=== PATIENT | female | born 1935 | race Caucasian/White ===

== ENCOUNTER 2017-08-15 15:53 | Inpatient (IN) | payer MEDICARE, OTHER ==
[2017-08-15 16:38] LABS: HEMATOCRIT 36.4 % (36.0-47.0); HGB HCT DIFFERENCE -0.4; MEAN CORPUSCULAR HEMOGLOBIN 29.1 pg (27.0-33.4); MEAN CORPUSCULAR HGB CONC 32.9 g/dL (32.0-36.0); MEAN CORPUSCULAR VOLUME 88 fl (80-97); RED BLOOD COUNT 4.12 10^6/uL (3.72-5.28); RED CELL DISTRIBUTION WIDTH 13.9 % (11.5-14.0); WHITE BLOOD COUNT 27.4 10^3/uL (4.0-10.5)
[2017-08-15 16:46] LABS: PROTHROMBIN TIME 13.5 SEC (11.4-15.4)
[2017-08-15 16:53] LABS: ALANINE AMINOTRANSFERASE 75 U/L (9-52); ALBUMIN 3.5 g/dL (3.5-5.0); ALKALINE PHOSPHATASE 158 U/L (38-126); ANION GAP 17 (5-19); ASPARTATE AMINO TRANSFERASE 118 U/L (14-36); BILIRUBIN,DIRECT 1.8 mg/dL (0.0-0.4); BILIRUBIN,TOTAL 2.4 mg/dL (0.2-1.3); BLOOD UREA NITROGEN 30 mg/dL (7-20); CALCIUM 8.9 mg/dL (8.4-10.2); CARBON DIOXIDE 23 mmol/L (22-30); CHLORIDE 99 mmol/L (98-107); CREATININE RESULT 1.55 mg/dL (0.52-1.25); SODIUM 139.3 mmol/L (137-145); TOTAL PROTEIN 6.3 g/dL (6.3-8.2)
[2017-08-15 17:01] LABS: BAND NEUTROPHILS % (MANUAL) 5 % (3-5); BASOPHILS % (MANUAL) 0 % (0-2); EOSINOPHILS % (MANUAL) 0 % (0-6); LYMPHOCYTES % (MANUAL) 5 % (13-45); TOTAL CELLS COUNTED 100
[2017-08-15 17:03] LABS: GLUCOSE 435 mg/dL (75-110)
[2017-08-15 17:04] LABS: OVALOCYTES SLIGHT; POIKILOCYTOSIS SLIGHT; POLYCHROMASIA SLIGHT
--- NOTE | 2017-08-15 17:20 | ER Document Report ---
ED General - General Chief Complaint: General Weakness Stated Complaint: WEAKNESS Time Seen by Provider: 08/15/17 16:32 Mode of Arrival: Ambulatory Information source: Patient, Relative Notes: This is an 82-year-old female patient presents to emergency department via EMS for possible sepsis. Went to primary care doctor. Was not feeling well. Was sent here for tachycardic with fever. Patient states that she was on antibiotics a week ago for a bladder infection. Started developing diarrhea on Sunday. Has had 5-6 episodes of diarrhea and now having abdominal pain. Cannot seem to keep anything down. Generally feels achy all over. TRAVEL OUTSIDE OF THE [place] IN LAST 30 DAYS: No - HPI Onset: Last week Onset/Duration: Gradual Quality of pain: Achy Severity: Moderate Pain Level: 2 Associated symptoms: Body/muscle aches, Chills, Diarrhea, Nausea - Juvencio pain, Weakness - Related Data Allergies/Adverse Reactions: Penicillins Allergy (Verified 08/15/17 16:34) Home Medications: Current Home Medications Canagliflozin [Invokana] 100 mg PO DAILY 08/15/17 [History] Cholecalciferol (Vitamin D3) [Vitamin D3 2000 unit Tablet] 2,000 unit PO DAILY 08/15/17 [History] Fenofibrate 160 mg PO DAILY 08/15/17 [History] Glipizide [Glocotrol 10 Mg Tablet] 10 mg PO BIDACBS 08/15/17 [History] Lisinopril/Hydrochlorothiazide [Lisinopril-Hctz 10-12.5 mg Tab] 1 tab PO DAILY 08/15/17 [History] Magnesium Oxide [Mag-Ox 400 mg Tablet] 400 mg PO BID 08/15/17 [History] Memantine HCl [Namenda 10 mg Tablet] 5 mg PO DAILY 08/15/17 [History] Metformin HCl [Metformin HCl ER] 500 mg PO QHS 08/15/17 [History] Multivitamin [Tab-A-Adryan (Multiple Vitamin) Tablet] 1 tab PO DAILY 08/15/17 [ History] Omeprazole 20 mg PO DAILY 08/15/17 [History] Simvastatin [Zocor 40 mg Tablet] 40 mg PO QHS 08/15/17 [History] Tolterodine Tartrate [Detrol] 2 mg PO BID 08/15/17 [History] Vit A/Vit C/Vit E/Zinc/Copper [Preservision Areds Softgel] 1 cap PO BID [History] Past Medical History - General Information source: Patient, Relative - Social History Smoking Status: Never Smoker Frequency of alcohol use: None Drug Abuse: None Family History: Reviewed & Not Pertinent Patient has suicidal ideation: No Patient has homicidal ideation: No - Past Medical History Cardiac Medical History: Reports: Hx Hypertension Endocrine Medical History: Reports: Hx Diabetes Mellitus Type 2 Renal/ Medical History: Denies: Hx Peritoneal Dialysis Review of Systems - Review of Systems Constitutional: Chills, Fever, Malaise, Weakness EENT: No symptoms reported Cardiovascular: No symptoms reported Respiratory: No symptoms reported Gastrointestinal: Abdominal pain, Diarrhea, Nausea, Vomiting Genitourinary: No symptoms reported Female Genitourinary: No symptoms reported Musculoskeletal: No symptoms reported Skin: No symptoms reported Hematologic/Lymphatic: No symptoms reported Neurological/Psychological: No symptoms reported Physical Exam - Vital signs Vitals: BP Pulse Ox 104/57 L 92 08/15/17 16:01 08/15/17 16:01 Interpretation: Normal - General General appearance: Appears well, Alert - HEENT Head: Normocephalic - She would drive mucous membrane, Atraumatic Eyes: Normal Pupils: PERRL - Respiratory Respiratory status: No respiratory distress Chest status: Nontender Breath sounds: Normal Chest palpation: Normal - Cardiovascular Rhythm: Tachycardia Heart sounds: Normal auscultation Murmur: No - Abdominal Inspection: Normal Distension: No distension Bowel sounds: Normal Tenderness: Tender - Mild diffuse abdominal tenderness worse in the left lower quadrant. No: Rebound Organomegaly: No organomegaly - Back Back: Normal, Nontender - Extremities General upper extremity: Normal inspection, Nontender, Normal color, Normal ROM , Normal temperature General lower extremity: Normal inspection, Nontender, Normal color, Normal ROM , Normal temperature, Normal weight bearing. No: Cristobal's sign - Neurological Neuro grossly intact: Yes Cognition: Normal Orientation: AAOx4 Hamilton Coma Scale Eye Opening: Spontaneous Hamilton Coma Scale Verbal: Oriented Hamilton Coma Scale Motor: Obeys Commands [place] Coma Scale Total: 15 Speech: Normal Motor strength normal: LUE, RUE, LLE, RLE Sensory: Normal - Psychological Associated symptoms: Normal affect, Normal mood - Skin Skin Temperature: Warm Skin Moisture: Dry Skin Color: Normal Course - Re-evaluation Re-evalutation: 08/15/17 18:41 Septic appearing. Blood cultures, lactate, CT abdomen and pelvis, IV fluids, antibiotics started. Likely C. difficile colitis but could be other pathology. Will treat aggressively at this time. Patient is full code. 08/15/17 18:42 Laboratory 08/15/17 08/15/17 08/15/17 16:15 16:15 16:15 WBC 27.4 H RBC 4.12 Hgb 12.0 Hct 36.4 MCV 88 MCH 29.1 MCHC 32.9 RDW 13.9 Plt Count 281 Total Counted 100 Seg Neutrophils % Not Reportable Seg Neuts % (Manual) 88 H Band Neutrophils % 5 Lymphocytes % Not Reportable Lymphocytes % (Manual) 5 L Monocytes % Not Reportable Monocytes % (Manual) 2 L Eosinophils % Not Reportable Eosinophils % (Manual) 0 Basophils % Not Reportable Basophils % (Manual) 0 Absolute Neutrophils Not Reportable Abs Neuts (Manual) 25.5 H Absolute Lymphocytes Not Reportable Abs Lymphs (Manual) 1.4 Absolute Monocytes Not Reportable Abs Monocytes (Manual) 0.5 Absolute Eosinophils Not Reportable Absolute Eos (Manual) 0.0 Absolute Basophils Not Reportable Abs Basophils (Manual) 0.0 Large Platelets PRESENT Platelet Comment ADEQUATE Polychromasia SLIGHT Poikilocytosis SLIGHT Ovalocytes SLIGHT PT 13.5 INR 0.96 VBG pH VBG pCO2 VBG HCO3 VBG Base Excess Sodium 139.3 Potassium 4.0 Chloride 99 Carbon Dioxide 23 Anion Gap 17 BUN 30 H Creatinine 1.55 H Est GFR ( Amer) 39 L Est GFR (Non-Af Amer) 32 L Glucose 435 H* POC Glucose Lactic Acid Calcium 8.9 Total Bilirubin 2.4 H Direct Bilirubin 1.8 H Indirect Bilirubin Not Reportable Neonat Total Bilirubin Not Reportable AST 118 H ALT 75 H Alkaline Phosphatase 158 H Troponin I Total Protein 6.3 Albumin 3.5 Urine Color Urine Appearance Urine pH Ur Specific [place] Urine Protein Urine Glucose (UA) Urine Ketones Urine Blood Urine Nitrite Urine Bilirubin Urine Urobilinogen Ur Leukocyte Esterase Urine WBC Amorphous Sediment Urine Bacteria WBC Casts Urine Ascorbic Acid 08/15/17 08/15/17 08/15/17 16:15 16:15 16:15 WBC RBC Hgb Hct MCV MCH MCHC RDW Plt Count Total Counted Seg Neutrophils % Seg Neuts % (Manual) Band Neutrophils % Lymphocytes % Lymphocytes % (Manual) Monocytes % Monocytes % (Manual) Eosinophils % Eosinophils % (Manual) Basophils % Basophils % (Manual) Absolute Neutrophils Abs Neuts (Manual) Absolute Lymphocytes Abs Lymphs (Manual) Absolute Monocytes Abs Monocytes (Manual) Absolute Eosinophils Absolute Eos (Manual) Absolute Basophils Abs Basophils (Manual) Large Platelets Platelet Comment Polychromasia Poikilocytosis Ovalocytes PT INR VBG pH Cancelled VBG pCO2 Cancelled VBG HCO3 Cancelled VBG Base Excess Cancelled Sodium Potassium Chloride Carbon Dioxide Anion Gap BUN Creatinine Est GFR ( Amer) Est GFR (Non-Af Amer) Glucose POC Glucose Lactic Acid 2.9 H Calcium Total Bilirubin Direct Bilirubin Indirect Bilirubin Neonat Total Bilirubin AST ALT Alkaline Phosphatase Troponin I 0.019 Total Protein Albumin Urine Color Urine Appearance Urine pH Ur Specific [place] Urine Protein Urine Glucose (UA) Urine Ketones Urine Blood Urine Nitrite Urine Bilirubin Urine Urobilinogen Ur Leukocyte Esterase Urine WBC Amorphous Sediment Urine Bacteria WBC Casts Urine Ascorbic Acid 08/15/17 08/15/17 08/15/17 16:22 16:45 17:16 WBC RBC Hgb Hct MCV MCH MCHC RDW Plt Count Total Counted Seg Neutrophils % Seg Neuts % (Manual) Band Neutrophils % Lymphocytes % Lymphocytes % (Manual) Monocytes % Monocytes % (Manual) Eosinophils % Eosinophils % (Manual) Basophils % Basophils % (Manual) Absolute Neutrophils Abs Neuts (Manual) Absolute Lymphocytes Abs Lymphs (Manual) Absolute Monocytes Abs Monocytes (Manual) Absolute Eosinophils Absolute Eos (Manual) Absolute Basophils Abs Basophils (Manual) Large Platelets Platelet Comment Polychromasia Poikilocytosis Ovalocytes PT INR VBG pH 7.37 VBG pCO2 39.3 VBG HCO3 22.0 VBG Base Excess -3.1 Sodium Potassium Chloride Carbon Dioxide Anion Gap BUN Creatinine Est GFR ( Amer) Est GFR (Non-Af Amer) Glucose POC Glucose 414 H* Lactic Acid Calcium Total Bilirubin Direct Bilirubin Indirect Bilirubin Neonat Total Bilirubin AST ALT Alkaline Phosphatase Troponin I Total Protein Albumin Urine Color YELLOW Urine Appearance SLIGHTLY-CLOUDY Urine pH 6.0 Ur Specific [place] 1.021 Urine Protein 30 H Urine Glucose (UA) 150 H Urine Ketones NEGATIVE Urine Blood NEGATIVE Urine Nitrite NEGATIVE Urine Bilirubin NEGATIVE Urine Urobilinogen 2.0 H Ur Leukocyte Esterase TRACE H Urine WBC 10-20 Amorphous Sediment 1+ Urine Bacteria 4+ WBC Casts 5-10 Urine Ascorbic Acid NEGATIVE Abdomen/Pelvis CT 08/15/17 17:19 IMPRESSION: 1. Cholelithiasis versus a small calcified gallbladder polyp. 2. Atherosclerosis as described. 3. Diverticulosis coli. 4. Osseous changes as described. 08/15/17 19:43 Patient is obviously septic. Starting antibiotics. Adding imipenem. Third and fourth liter of fluid ordered. Starting Levophed. Consulted hospitalist. Will admit to the ICU. Placing central line at this time. 08/15/17 21:11 Consent was obtained. Central line was placed. Levophed started. Moving to ICU at this time. Patient still maintains mental status. Blood pressure 88/ 60. Heart rate 90. Transfer to the ICU at this time. Hospitalist is seen. Will do bedside ultrasound for the right upper quadrant evaluation gallbladder as potential septic source as well. Expanding antibiotics as well. - Vital Signs Vital signs: Temp Pulse Resp BP Pulse Ox 100.1 F 99 20 72/45 L 95 08/15/17 18:50 08/15/17 17:56 08/15/17 19:16 08/15/17 19:16 08/15/17 19:16 - Laboratory Result Diagrams: 08/15/17 16:15 08/15/17 16:15 Laboratory results interpreted by me: 08/15/17 08/15/17 08/15/17 16:15 16:15 16:15 WBC 27.4 H Seg Neuts % (Manual) 88 H Lymphocytes % (Manual) 5 L Monocytes % (Manual) 2 L Abs Neuts (Manual) 25.5 H BUN 30 H Creatinine 1.55 H Est GFR ( Amer) 39 L Est GFR (Non-Af Amer) 32 L Glucose 435 H* POC Glucose Lactic Acid 2.9 H Magnesium Total Bilirubin 2.4 H Direct Bilirubin 1.8 H AST 118 H ALT 75 H Alkaline Phosphatase 158 H Urine Protein Urine Glucose (UA) Urine Urobilinogen Ur Leukocyte Esterase 08/15/17 08/15/17 08/15/17 16:15 16:22 16:45 WBC Seg Neuts % (Manual) Lymphocytes % (Manual) Monocytes % (Manual) Abs Neuts (Manual) BUN Creatinine Est GFR ( Amer) Est GFR (Non-Af Amer) Glucose POC Glucose 414 H* Lactic Acid Magnesium 1.4 L Total Bilirubin Direct Bilirubin AST ALT Alkaline Phosphatase Urine Protein 30 H Urine Glucose (UA) 150 H Urine Urobilinogen 2.0 H Ur Leukocyte Esterase TRACE H 08/15/17 18:37 WBC Seg Neuts % (Manual) Lymphocytes % (Manual) Monocytes % (Manual) Abs Neuts (Manual) BUN Creatinine Est GFR ( Amer) Est GFR (Non-Af Amer) Glucose POC Glucose 366 H Lactic Acid Magnesium Total Bilirubin Direct Bilirubin AST ALT Alkaline Phosphatase Urine Protein Urine Glucose (UA) Urine Urobilinogen Ur Leukocyte Esterase Procedures - Central Line Right Internal jugular Consent obtained: Yes Central line pre-insertion: Sterile PPE donned, Chloraprep applied, Sterile drapes applied Central line lumen type: Triple Anesthetic type: 1% Lidocaine mL's of anesthesia: 3 Ultrasound guided: Yes Line secured with sutures: Yes Central line post-insertion: Blood return from lumens, Biopatch applied, Sterile dressing applied, Position confirmed w/ CXR Number of attempts: 1 Complications: No Critical Care Note - Critical Care Note Total time excluding time spent on procedures (mins): 60 Comments: Critical care provided due to sepsis with hypotension, tachycardia, dehydration Discharge - Discharge Clinical Impression: Sepsis Qualifiers: Sepsis type: sepsis due to unspecified organism Qualified Code(s): A41.9 - Sepsis, unspecified organism Leukocytosis, unspecified Qualifiers: Leukocytosis type: bandemia Qualified Code(s): D72.825 - Bandemia Condition: Poor Disposition: ADMITTED INPATIENT Admitting Provider: Yazmin [facility] Unit Admitted: ICU
[2017-08-15 17:28] LABS: APPEARANCE,URINE SLIGHTLY-CLOUDY; BILIRUBIN,URINE NEGATIVE (NEGATIVE); GLUCOSE, URINE 150 mg/dL (NEGATIVE); KETONES,URINE NEGATIVE (NEGATIVE); URINE SPECIFIC GRAVITY 1.021
[2017-08-15 17:29] LABS: LEUKOCYTE ESTERASE,URINE TRACE (NEGATIVE); NITRITE,URINE NEGATIVE (NEGATIVE); PROTEIN,URINE 30 mg/dL (NEGATIVE)
[2017-08-15 17:29] LABS: VENOUS BLOOD BASE EXCESS -3.1 mmol/L; VENOUS BLOOD PCO2 39.3 mmHg (35-63); VENOUS BLOOD PH 7.37 (7.30-7.42)
[2017-08-15 17:30] LABS: BACTERIA,URINE 4+ /HPF
[2017-08-15] MEDS: NORMAL SALINE 1000 ML 1,000 ML IV PRN ×3 (17:46→23:07)
[2017-08-15] MEDS ORDERED: VANCOMYCIN HCL INJ 1000 MG VIAL IV ONE (17:49)
[2017-08-15] MEDS ORDERED: METRONIDAZOLE 500 MG/NS RTU 100 ML IV ONE (17:50)
[2017-08-15] MEDS ORDERED: ACETAMINOPHEN 325 MG TABLET PO ONE (18:04)
--- NOTE | 2017-08-15 18:14 | RADIOLOGY REPORT (SQ) ---
EXAM DESCRIPTION: CT ABD/PELVIS NO ORAL OR IV COMPLETED DATE/TIME: 08/15/2017 5:42 pm REASON FOR STUDY: fever, diarrhea, abdomen pain COMPARISON: None. TECHNIQUE: CT scan of the abdomen and pelvis performed without intravenous or oral contrast. Images reviewed with lung, soft tissue, and bone windows. Reconstructed coronal and sagittal MPR images revi ewed. All images stored on PACS. All CT scanners at this facility use dose modulation, iterative reconstruction, and/or weight based d osing when appropriate to reduce radiation dose to as low as reasonably achievable (ALARA). [facility]: Dose Right [facility]: CareDose [facility]: Dose Right [facility]: Teradose 4D [facility]: ConsiderC RADIATION DOSE: 12.8mGy. LIMITATIONS: None. FINDINGS: LOWER CHEST: No significant findings. No nodules or infiltrates. NON-CONTRASTED LIVER, SPLEEN, ADRENALS: Evaluation limited by lack of IV contrast. No identified sign ificant masses. PANCREAS: No masses. No peripancreatic inflammatory changes. GALLBLADDER: A small calcification is seen in the gallbladder on image 40 series 3, image 29 series 6 01. RIGHT KIDNEY AND URETER: No suspicious masses. Assessment limited by lack of IV contrast. No signif icant calcifications. No hydronephrosis or hydroureter. LEFT KIDNEY AND URETER: No suspicious masses. Assessment limited by lack of IV contrast. No signifi cant calcifications. No hydronephrosis or hydroureter. AORTA AND RETROPERITONEUM: No aneurysm. Atherosclerosis. Plaques are present at the origins of the celiac, SMA, and renal arteries. BOWEL AND PERITONEAL CAVITY: Diverticula arise from the descending and sigmoid colons with no acute i nflammatory changes. APPENDIX: Normal. PELVIS, BLADDER, AND ABDOMINAL WALL:No abnormal masses. No free fluid. Bladder normal. BONES: Mild compression changes. Degenerative disc changes. OTHER: No other significant finding. IMPRESSION: 1. Cholelithiasis versus a small calcified gallbladder polyp. 2. Atherosclerosis as described. 3. Diverticulosis coli. 4. Osseous changes as described. COMMENT: Quality ID # [id number]: Final reports with documentation of one or more dose reduction techniques (e.g., Automated exposure control, adjustment of the mA and/or kV according to patient size, use of iterative reconstruction technique) TECHNICAL DOCUMENTATION: JOB ID: [id number]- All Rights Reserved
[2017-08-15] MEDS ORDERED: NORMAL SALINE 1000 ML 1,000 ML IV ONE (19:05)
[2017-08-15] MEDS ORDERED: IMIPENEM/CILASTATIN SODIUM INJ 500 MG VIAL IV ONE (19:37)
[2017-08-15] MEDS ORDERED: DEXTROSE 5%-WATER 250 ML with NOREPINEPHRINE BITARTRATE 4 MG IV PRN ×2 (19:38)
[2017-08-15] MEDS ORDERED: NORMAL SALINE 1000 ML 2,000 ML IV ONE (19:38)
[2017-08-15] MEDS ORDERED: ONDANSETRON HCL INJ/PF 4 MG/2 ML SDV IV PRN (19:46)
[2017-08-15] MEDS ORDERED: LEVALBUTEROL HCL NEB 1.25 MG/3 ML AMPUL NEB PRN (19:46)
[2017-08-15] MEDS ORDERED: ACETAMINOPHEN 325 MG TABLET PO PRN (19:46)
[2017-08-15] MEDS ORDERED: DEXTROSE 40% GEL 15 GM TUBE PO PRN ×2 (19:52)
[2017-08-15] MEDS ORDERED: DEXTROSE 50%-WATER 25 GM/50 ML DISP.SYRIN IV PRN (19:52)
[2017-08-15] MEDS ORDERED: GLUCAGON,HUMAN RECOMB 1 MG INJ IM PRN (19:52)
[2017-08-15] MEDS ORDERED: INSULIN LISPRO 100 UNIT/ML 3 ML VIAL SUBCUT PRN (19:52)
[2017-08-15] MEDS ORDERED: NOREPINEPHRINE BITARTRATE INJ/PF 4 MG/4 ML SDV IV ONE (20:13)
[2017-08-15] MEDS ORDERED: HEPARIN SOD (PORCINE) 1 UNIT/ML PF 3 ML SYRINGE IV ONE (21:02)
--- NOTE | 2017-08-15 22:14 | RADIOLOGY REPORT (SQ) ---
EXAM DESCRIPTION: CHEST SINGLE VIEW COMPLETED DATE/TIME: 08/15/2017 9:36 pm REASON FOR STUDY: Central line placed COMPARISON: None. NUMBER OF VIEWS: One view. TECHNIQUE: Single frontal radiographic view of the chest acquired. LIMITATIONS: None. FINDINGS: Central venous access catheter placed via right IJ approach. Catheter tip at right atriu m. No pneumothorax. Minimal linear atelectasis in the left lung base. IMPRESSION: Central venous access catheter placed via right IJ approach. Catheter tip at right atri um. No pneumothorax. TECHNICAL DOCUMENTATION: JOB ID: [id number] [employer]- All Rights Reserved
[2017-08-15] MEDS ORDERED: NORMAL SALINE INJ/PF 0.9% 10 ML SDV IV PRN (22:53)
[2017-08-15] MEDS ORDERED: NORMAL SALINE 100 ML with INSULIN REGULAR, HUMAN 100 UNIT IV PRN ×2 (22:59)
[2017-08-15] MEDS: HEPARIN SOD (PORCINE) 5,000 UNIT/ML 1 ML SYRINGE SUBCUT SCH (23:02)
[2017-08-15] MEDS: IMIPENEM/CILASTATIN SODIUM 500 MG in NORMAL SALINE 100 ML IV SCH (23:05)
[2017-08-15] MEDS: FAMOTIDINE INJ/PF 20 MG/2 ML SDV IV SCH (23:06)
[2017-08-15] MEDS: MAGNESIUM SULFATE/D5W 1 GM/100 ML RTUPB IV SCH (23:06)
[2017-08-15 23:07] LABS: PARTIAL THROMBOPLASTIN TIME 31.9 SEC (23.5-35.8); PROTHROMBIN TIME 14.6 SEC (11.4-15.4)
[2017-08-15] MEDS ORDERED: INSULIN REG, HUMAN 100 UNIT/ML 3 ML VIAL (PYX) ONE (23:12)
--- NOTE | 2017-08-15 23:14 | PDOC H&P ---
History of Present Illness Admission Date/PCP: 08/15/17 19:46 DULCE NUNEZ PA-C History of Present Illness: ROHIT BERGMAN is a 82 year old female with a past medical history of dementia, diabetes mellitus, hypertension, GERD, IBS, heart murmur who presents to the emergency department with low blood pressure. Patient was diagnosed with an UTI on 08/08/2017 and was prescribed an antibiotic which she finished. On Sunday because she began not feeling well and complained of being achy and tired. Starting on Sunday patient began vomiting and on Sunday was noted by her family to have diarrhea a minimum of 5 times. Patient denies any hematochezia but does describe some melena with this. Patient went for an MRI this morning in [place] with a neurologist for her dementia. Subsequently patient was not feeling well and her daughter took her to her PCP at which time , patient was unable to urinate and was found to be extremely hypotensive. In the emergency department patient continued to have hypotension despite 3 L of IV fluids. Patient is found to still have a UTI with concerns for C. difficile colitis in light of her diarrhea. It is to be noted that history is primarily obtained from her daughter who is at bedside. Patient has had no further stooling here in the hospital. She is referred to the hospitalist service for septic shock. Past Medical History Cardiac Medical History: Reports: Hypertension, Heart Murmur EENT Medical History: Reports: Cataracts Neurological Medical History: Reports: Other - Dementia Endocrine Medical History: Reports: Diabetes Mellitus Type 2 Renal/ Medical History: Denies: Chronic Kidney Disease GI Medical History: Reports: Gastroesophageal Reflux Disease, Other - IBS Past Surgical History Past Surgical History: Reports: Hysterectomy Social History Smoking Status: Never Smoker Frequency of Alcohol Use: None Hx Recreational Drug Use: No Hx Prescription Drug Abuse: No - Advance Directive Resuscitation Status: Full Code Surrogate healthcare decision maker:: Savana Katz Family History Family History: Malignancy Parental Family History Reviewed: Yes Children Family History Reviewed: Yes Sibling(s) Family History Reviewed.: Yes Medication/Allergy Home Medications: Canagliflozin [Invokana] 100 mg PO DAILY 08/15/17 Cholecalciferol (Vitamin D3) [Vitamin D3 2000 unit Tablet] 2,000 unit PO DAILY 08/15/17 Fenofibrate 160 mg PO DAILY 08/15/17 Glipizide [Glocotrol 10 Mg Tablet] 10 mg PO BIDACBS 08/15/17 Lisinopril/Hydrochlorothiazide [Lisinopril-Hctz 10-12.5 mg Tab] 1 tab PO DAILY 08/15/17 Magnesium Oxide [Mag-Ox 400 mg Tablet] 400 mg PO BID 08/15/17 Memantine HCl [Namenda 10 mg Tablet] 5 mg PO DAILY 08/15/17 Metformin HCl [Metformin HCl ER] 500 mg PO QHS 08/15/17 Multivitamin [Tab-A-Adryan (Multiple Vitamin) Tablet] 1 tab PO DAILY 08/15/17 Omeprazole 20 mg PO DAILY 08/15/17 Simvastatin [Zocor 40 mg Tablet] 40 mg PO QHS 08/15/17 Tolterodine Tartrate [Detrol] 2 mg PO BID 08/15/17 Vit A/Vit C/Vit E/Zinc/Copper [Preservision Areds Softgel] 1 cap PO BID Allergies/Adverse Reactions: Penicillins Allergy (Verified 08/15/17 16:34) Review of Systems Constitutional: PRESENT: anorexia, chills, fatigue, fever(s), weakness. ABSENT : headache(s), weight gain, weight loss Eyes: ABSENT: visual disturbances Ears: ABSENT: hearing changes Nose, Mouth, and Throat: ABSENT: other Cardiovascular: ABSENT: chest pain, dyspnea on exertion, edema, orthropnea, palpitations Respiratory: ABSENT: cough, dyspnea, hemoptysis, sputum Gastrointestinal: PRESENT: abdominal pain, diarrhea, melena, nausea, vomiting. ABSENT: constipation, hematemesis, hematochezia Genitourinary: PRESENT: difficulty urinating. ABSENT: dysuria, hematuria, nocturia Musculoskeletal: ABSENT: joint swelling Integumentary: ABSENT: rash, wounds Neurological: ABSENT: abnormal gait, abnormal speech, confusion, dizziness, focal weakness, syncope Psychiatric: ABSENT: anxiety, depression, homidical ideation, suicidal ideation Endocrine: ABSENT: cold intolerance, heat intolerance, polydipsia, polyuria Hematologic/Lymphatic: ABSENT: easy bleeding, easy bruising Physical Exam Vital Signs: Temp Pulse Resp BP Pulse Ox 100.1 F 99 20 122/55 L 96 08/15/17 18:50 08/15/17 17:56 08/15/17 22:01 08/15/17 22:01 08/15/17 22:01 General appearance: PRESENT: well-developed, well-nourished, other - Acutely ill -appearing, sallow Head exam: PRESENT: atraumatic, normocephalic Eye exam: PRESENT: conjunctiva pink, EOMI, PERRLA, scleral icterus - Mild Ear exam: PRESENT: normal external ear exam Mouth exam: PRESENT: dry mucosa, tongue midline Neck exam: ABSENT: JVD, lymphadenopathy, thyromegaly, tracheal deviation Respiratory exam: PRESENT: clear to auscultation thiago, symmetrical, unlabored. ABSENT: crackles, prolonged expiratory phas, rales, rhonchi, tachypnea, wheezes Cardiovascular exam: PRESENT: RRR, +S1, +S2, systolic murmur - 3/6 SM, RUSB. ABSENT: diastolic murmur, rubs Pulses: PRESENT: +1 pedal pulses bilateral Vascular exam: PRESENT: pallor GI/Abdominal exam: PRESENT: diminished bowel sounds, distended, soft, tenderness - Diffusely tender to palpation. ABSENT: firm, guarding, mass, Mendoza's sign, organolmegaly, rebound, rigid Rectal exam: PRESENT: deferred Extremities exam: PRESENT: full ROM. ABSENT: clubbing, pedal edema, tenderness Neurological exam: PRESENT: alert, awake, oriented to person, oriented to place , oriented to situation, CN II-XII grossly intact. ABSENT: oriented to time, motor sensory deficit Psychiatric exam: PRESENT: appropriate affect, normal mood. ABSENT: homicidal ideation, suicidal ideation Skin exam: PRESENT: dry, intact, warm. ABSENT: cyanosis, rash Results Laboratory Results: 08/15/17 08/15/17 08/15/17 16:15 16:15 16:15 WBC 27.4 H Hgb 12.0 Hct 36.4 Plt Count 281 Seg Neuts % (Manual) 88 H INR 0.96 VBG pH Sodium 139.3 Potassium 4.0 Chloride 99 Carbon Dioxide 23 Anion Gap 17 BUN 30 H Creatinine 1.55 H Glucose 435 H* POC Glucose Lactic Acid Calcium 8.9 Magnesium Total Bilirubin 2.4 H Direct Bilirubin 1.8 H AST 118 H ALT 75 H Alkaline Phosphatase 158 H Troponin I Total Protein 6.3 Albumin 3.5 Ur Specific [place] Urine Protein Urine Glucose (UA) Ur Leukocyte Esterase Urine WBC Amorphous Sediment Urine Bacteria WBC Casts 1108/15/17 08/15/17 16:15 16:15 16:15 WBC Hgb Hct Plt Count Seg Neuts % (Manual) INR VBG pH Sodium Potassium Chloride Carbon Dioxide Anion Gap BUN Creatinine Glucose POC Glucose Lactic Acid 2.9 H Calcium Magnesium 1.4 L Total Bilirubin Direct Bilirubin AST ALT Alkaline Phosphatase Troponin I 0.019 Total Protein Albumin Ur Specific [place] Urine Protein Urine Glucose (UA) Ur Leukocyte Esterase Urine WBC Amorphous Sediment Urine Bacteria WBC Casts 08/15/17 08/15/17 08/15/17 16:22 16:45 17:16 WBC Hgb Hct Plt Count Seg Neuts % (Manual) INR VBG pH 7.37 Sodium Potassium Chloride Carbon Dioxide Anion Gap BUN Creatinine Glucose POC Glucose 414 H* Lactic Acid Calcium Magnesium Total Bilirubin Direct Bilirubin AST ALT Alkaline Phosphatase Troponin I Total Protein Albumin Ur Specific [place] 1.021 Urine Protein 30 H Urine Glucose (UA) 150 H Ur Leukocyte Esterase TRACE H Urine WBC 10-20 Amorphous Sediment 1+ Urine Bacteria 4+ WBC Casts 5-10 08/15/17 18:37 WBC Hgb Hct Plt Count Seg Neuts % (Manual) INR VBG pH Sodium Potassium Chloride Carbon Dioxide Anion Gap BUN Creatinine Glucose POC Glucose 366 H Lactic Acid Calcium Magnesium Total Bilirubin Direct Bilirubin AST ALT Alkaline Phosphatase Troponin I Total Protein Albumin Ur Specific [place] Urine Protein Urine Glucose (UA) Ur Leukocyte Esterase Urine WBC Amorphous Sediment Urine Bacteria WBC Casts Impressions: Abdomen/Pelvis CT 08/15/17 17:19 IMPRESSION: 1. Cholelithiasis versus a small calcified gallbladder polyp. 2. Atherosclerosis as described. 3. Diverticulosis coli. 4. Osseous changes as described. Chest X-Ray 08/15/17 21:10 IMPRESSION: Central venous access catheter placed via right IJ approach. Catheter tip at right atrium. No pneumothorax. Status: Imported from PACS Assessment & Plan - Diagnosis (1) Septic shock Is this a current diagnosis for this admission?: Yes Plan: Central line has been placed. Repeat lactic acid. Give patient a total of 5 L normal saline bolus and initiate Levophed to maintain a map greater than 65. Systolic goal greater than 90. CVP every 4 hours. Patient will be placed in the ICU and monitored on telemetry. This is likely secondary to possible remaining UTI, acute infectious diarrhea, and also possibly secondary to gallbladder or colonic pathology. Patient will be covered empirically with Flagyl and imipenem. Patient has already received a dose of vancomycin in the emergency department which in light of her kidney dysfunction should remain therapeutic if her cultures come back positive for gram-positive organisms. (2) UTI (urinary tract infection) Qualifiers: Urinary tract infection type: acute cystitis Hematuria presence: without hematuria Qualified Code(s): N30.00 - Acute cystitis without hematuria Is this a current diagnosis for this admission?: Yes Plan: Place patient on imipenem pending her urine culture. (3) Acute renal failure Qualifiers: Acute renal failure type: with acute tubular necrosis Qualified Code(s): N17.0 - Acute kidney failure with tubular necrosis Is this a current diagnosis for this admission?: Yes Plan: Unknown at this time the patient suffers from a baseline kidney disease. My suspicion is in light of patient's profound dehydration that this represents an acute kidney injury with ATN likely secondary to her septic shock. We will aggressively rehydrate patient and follow this closely. Place [place] for accurate I's and O's. (4) Diabetes mellitus type 2 in obese Is this a current diagnosis for this admission?: Yes Plan: Patient normally takes Tradjenta, glipizide, metformin, Invokana for her diabetes mellitus. Will hold all of these in light of her acute kidney injury and place her on an insulin drip at this time as patient's blood sugars are in excess of 300. Blood sugar between 70 and 180. (5) Acute infectious diarrhea Is this a current diagnosis for this admission?: Yes Plan: Concern for C. difficile colitis. Obtain occult blood, fecal leukocytes, stool culture, and C. difficile PCR. Place patient empirically on IV Flagyl and oral Vancocin given her septic shock (6) Abnormal abdominal CT scan Is this a current diagnosis for this admission?: Yes Plan: We will obtain ultrasound of the gallbladder due to concerns for gallbladder polyp (7) Dementia Qualifiers: Dementia type: unspecified type Dementia behavioral disturbance: without behavioral disturbance Qualified Code(s): F03.90 - Unspecified dementia without behavioral disturbance Is this a current diagnosis for this admission?: Yes Plan: Supportive care (8) Hyperlipidemia Qualifiers: Hyperlipidemia type: unspecified Qualified Code(s): E78.5 - Hyperlipidemia , unspecified Is this a current diagnosis for this admission?: Yes Plan: Hold statin and fenofibrate at this time (9) Hypomagnesemia Is this a current diagnosis for this admission?: Yes Plan: Replete and recheck (10) GERD (gastroesophageal reflux disease) Qualifiers: Esophagitis presence: esophagitis presence not specified Qualified Code(s) : K21.9 - Gastro-esophageal reflux disease without esophagitis Is this a current diagnosis for this admission?: Yes Plan: Continue her Prilosec - Time Time Spent: Greater than 70 Minutes Critical Time spent with patient: 35 or more minutes Medications reviewed and adjusted accordingly: Yes - Inpatient Certification Based on my medical assessment, after consideration of the patient's comorbidities, presenting symptoms, or acuity I expect that the services needed warrant INPATIENT care.: Yes I certify that my determination is in accordance with my understanding of Medicare's requirements for reasonable and necessary INPATIENT services [42 CFR 412.3e].: Yes Medical Necessity: Need For IV Fluids, Need For Continuous Telemetry Monitoring , Need for IV Antibiotics, Risk of Complication if Not Cared For in Hospital, Risk of Diagnosis Which Will Require Inpatient Eval/Care/Monitoring Post Hospital Care: D/C House Detective Documentation
[2017-08-16] MEDS ORDERED: IMIPENEM/CILASTATIN SODIUM 1,000 MG in NORMAL SALINE 250 ML IV SCH ×2
[2017-08-16] MEDS: MAGNESIUM SULFATE/D5W 1 GM/100 ML RTUPB IV SCH (00:21)
[2017-08-16] MEDS ORDERED: VANCOMYCIN HCL INJ 500 MG VIAL ONE (00:21)
[2017-08-16] MEDS: METRONIDAZOLE 500 MG/NS RTU 100 ML IV SCH ×4 (00:51→17:27)
[2017-08-16] MEDS: VANCOMYCIN HCL INJ 500 MG VIAL PO SCH ×4 (00:52→17:27)
--- NOTE | 2017-08-16 01:14 | RADIOLOGY REPORT (SQ) ---
EXAM DESCRIPTION: U/S ABDOMEN LIMITED W/O DOP COMPLETED DATE/TIME: 08/16/2017 1:04 am REASON FOR STUDY: Right upper quadrant pain, fever COMPARISON: None. TECHNIQUE: Dynamic and static grayscale images acquired of the abdomen and recorded on PACS. Additio nal selected color Doppler and spectral images recorded. LIMITATIONS: None. FINDINGS: PANCREAS: Poorly visualized LIVER: No masses. Echotexture normal. LIVER VASCULATURE: Normal directional flow of the main portal vein and hepatic veins. GALLBLADDER: Gallstones. Polyps. Pericholecystic fluid. Thickened gallbladder wall. ULTRASOUND-DETECTED TOLBERT'S SIGN: Negative. INTRAHEPATIC DUCTS AND COMMON DUCT: CBD and intrahepatic ducts normal caliber. No filling defects. INFERIOR VENA CAVA: Normal flow. AORTA: Poorly visualized RIGHT KIDNEY: Normal size. Normal echogenicity. No solid or suspicious masses. No hydronephrosis. No calcifications. PERITONEAL AND RIGHT PLEURAL SPACE: No ascites or effusions. OTHER: No other significant findings. IMPRESSION: Cholelithiasis. Gallbladder polyps. Cholecystitis. TECHNICAL DOCUMENTATION: JOB ID: [id number]- All Rights Reserved
[2017-08-16] MEDS: IMIPENEM/CILASTATIN SODIUM 500 MG in NORMAL SALINE 100 ML IV SCH ×4 (02:39→21:39)
[2017-08-16 05:18] LABS: ABSOLUTE BASOPHILS # (AUTO) 0.1 10^3/uL (0.0-0.2); ABSOLUTE EOSINOPHILS # (AUTO) 0.1 10^3/uL (0.0-0.6); ABSOLUTE LYMPHOCYTES (AUTO) 1.6 10^3/uL (0.5-4.7); ABSOLUTE MONOCYTES (AUTO) 0.8 10^3/uL (0.1-1.4); ABSOLUTE NEUT (AUTO) 10.6 10^3/uL (1.7-8.2); BASOPHILS % (AUTO) 0.4 % (0-2); EOSINOPHILS % (AUTO) 0.8 % (0-6); HEMATOCRIT 28.6 % (36.0-47.0); HGB HCT DIFFERENCE -0.1; LYMPHOCYTES % (AUTO) 11.8 % (13-45); MEAN CORPUSCULAR HGB CONC 33.1 g/dL (32.0-36.0); MEAN CORPUSCULAR VOLUME 88 fl (80-97); RED BLOOD COUNT 3.26 10^6/uL (3.72-5.28); RED CELL DISTRIBUTION WIDTH 13.6 % (11.5-14.0); WHITE BLOOD COUNT 13.1 10^3/uL (4.0-10.5)
[2017-08-16 05:19] LABS: HEMOGLOBIN 9.5 g/dL (12.0-15.5)
[2017-08-16 05:25] LABS: ANION GAP 11 (5-19); BLOOD UREA NITROGEN 24 mg/dL (7-20); CALCIUM 7.1 mg/dL (8.4-10.2); CARBON DIOXIDE 21 mmol/L (22-30); CHLORIDE 112 mmol/L (98-107); CREATININE RESULT 1.32 mg/dL (0.52-1.25); GLUCOSE 119 mg/dL (75-110); MAGNESIUM 2.2 mg/dL (1.6-2.3); POTASSIUM 3.6 mmol/L (3.6-5.0); SODIUM 144.1 mmol/L (137-145)
[2017-08-16] MEDS: HEPARIN SOD (PORCINE) 5,000 UNIT/ML 1 ML SYRINGE SUBCUT SCH ×3 (05:40→21:39)
[2017-08-16] MEDS ORDERED: SODIUM CHLORIDE IRRIG SOLUTION 1,000 ML IR PRN (06:21)
[2017-08-16] MEDS: NORMAL SALINE 1000 ML 1,000 ML IV PRN (09:03)
[2017-08-16] MEDS: MAGNESIUM OXIDE 400 MG TABLET PO SCH ×2 (09:04→17:27)
[2017-08-16] MEDS: FAMOTIDINE INJ/PF 20 MG/2 ML SDV IV SCH ×2 (09:04→21:39)
[2017-08-16] MEDS ORDERED: LEVALBUTEROL HCL NEB 1.25 MG/3 ML AMPUL NEB PRN (09:30)
[2017-08-16] MEDS: INSULIN GLARGINE,HUM.REC.ANLOG 300 UNIT/3 ML INSULN.PEN SUBCUT SCH (10:40)
[2017-08-16 12:30] LABS: LIPASE 4614.8 U/L (23-300)
--- NOTE | 2017-08-16 13:09 | PDOC CONSULTATION ---
History of Present Illness Admission Date/PCP: 08/15/17 19:46 DULCE NUNEZ PA-C Patient complains of: Generalized malaise History of Present Illness: 82-year-old female presenting with generalized malaise for the past several days along with intermittent nausea vomiting and some diarrhea that has since resolved. Patient has had diffuse abdominal pain as well which has improved from admission. She was noted with a urinary tract infection was treated with antibiotics as an outpatient but had failure to thrive with generalized weakness and malaise and was noted with hypotension and was subsequently admitted. After fluid resuscitation she has had marked improvement. She still has some abdominal pain. Diarrhea has resolved. No emesis. No history of liver disease in the past. No history of alcohol abuse. Past Medical History Cardiac Medical History: Reports: Hypertension, Heart Murmur EENT Medical History: Reports: Cataracts Neurological Medical History: Reports: Other - Dementia Endocrine Medical History: Reports: Diabetes Mellitus Type 2 Renal/ Medical History: Denies: Chronic Kidney Disease GI Medical History: Reports: Gastroesophageal Reflux Disease, Other - IBS Past Surgical History Past Surgical History: Reports: Hysterectomy Social History Smoking Status: Never Smoker Frequency of Alcohol Use: None Hx Recreational Drug Use: No Hx Prescription Drug Abuse: No - Advance Directive Resuscitation Status: Full Code Family History Family History: Malignancy Parental Family History Reviewed: No Children Family History Reviewed: No Sibling(s) Family History Reviewed.: No Medication/Allergy Home Medications: Canagliflozin [Invokana] 100 mg PO DAILY 08/15/17 Cholecalciferol (Vitamin D3) [Vitamin D3 2000 unit Tablet] 2,000 unit PO DAILY 08/15/17 Fenofibrate 160 mg PO DAILY 08/15/17 Glipizide [Glocotrol 10 Mg Tablet] 10 mg PO BIDACBS 08/15/17 Lisinopril/Hydrochlorothiazide [Lisinopril-Hctz 10-12.5 mg Tab] 1 tab PO DAILY 08/15/17 Magnesium Oxide [Mag-Ox 400 mg Tablet] 400 mg PO BID 08/15/17 Memantine HCl [Namenda 10 mg Tablet] 5 mg PO DAILY 08/15/17 Metformin HCl [Metformin HCl ER] 500 mg PO QHS 08/15/17 Multivitamin [Tab-A-Adryan (Multiple Vitamin) Tablet] 1 tab PO DAILY 08/15/17 Omeprazole 20 mg PO DAILY 08/15/17 Simvastatin [Zocor 40 mg Tablet] 40 mg PO QHS 08/15/17 Tolterodine Tartrate [Detrol] 2 mg PO BID 08/15/17 Vit A/Vit C/Vit E/Zinc/Copper [Preservision Areds Softgel] 1 cap PO BID Allergies/Adverse Reactions: Penicillins Allergy (Verified 08/15/17 16:34) Physical Exam Vital Signs: Temp Pulse Resp BP Pulse Ox 97.9 F 80 21 H 108/63 93 08/16/17 09:29 08/16/17 09:29 08/16/17 10:00 08/16/17 09:49 08/16/17 10:00 Intake & Output 08/15/17 08/16/17 08/17/17 06:59 06:59 06:59 Intake Total 1540 250 Output Total 1100 350 Balance 440 -100 Weight 84 kg General appearance: PRESENT: no acute distress, cooperative Neck exam: PRESENT: other - Supple and nontender Respiratory exam: PRESENT: clear to auscultation thiago Cardiovascular exam: PRESENT: RRR GI/Abdominal exam: PRESENT: other - Soft, mild distention, tender across her abdomen without peritoneal signs. Extremities exam: PRESENT: other - No swelling Neurological exam: PRESENT: alert, awake Psychiatric exam: PRESENT: appropriate affect Skin exam: PRESENT: warm Results Laboratory Results: 08/16/17 04:40 08/16/17 04:40 08/15/17 08/16/17 08/16/17 22:50 04:40 04:40 WBC 13.1 H RBC 3.26 L Hgb 9.5 L D Hct 28.6 L MCV 88 MCH 29.0 MCHC 33.1 RDW 13.6 Plt Count 197 Seg Neutrophils % 81.0 H Lymphocytes % 11.8 L Monocytes % 6.0 Eosinophils % 0.8 Basophils % 0.4 Absolute Neutrophils 10.6 H Absolute Lymphocytes 1.6 Absolute Monocytes 0.8 Absolute Eosinophils 0.1 Absolute Basophils 0.1 Sodium 144.1 Potassium 3.6 Chloride 112 H Carbon Dioxide 21 L Anion Gap 11 BUN 24 H Creatinine 1.32 H Est GFR ( Amer) 47 L Est GFR (Non-Af Amer) 39 L Glucose 119 H Lactic Acid 0.7 Calcium 7.1 L Magnesium 2.2 Albumin Amylase Lipase Blood Type Antibody Screen 08/16/17 08/16/17 08/16/17 04:40 06:28 11:40 WBC RBC Hgb Hct MCV MCH MCHC RDW Plt Count Seg Neutrophils % Lymphocytes % Monocytes % Eosinophils % Basophils % Absolute Neutrophils Absolute Lymphocytes Absolute Monocytes Absolute Eosinophils Absolute Basophils Sodium Potassium Chloride Carbon Dioxide Anion Gap BUN Creatinine Est GFR ( Amer) Est GFR (Non-Af Amer) Glucose Lactic Acid Calcium Magnesium Albumin 2.4 L Amylase 605 H Lipase 4614.8 H Blood Type A POSITIVE Antibody Screen NEGATIVE Impressions: Abdomen/Pelvis CT 08/15/17 17:19 IMPRESSION: 1. Cholelithiasis versus a small calcified gallbladder polyp. 2. Atherosclerosis as described. 3. Diverticulosis coli. 4. Osseous changes as described. Chest X-Ray 08/15/17 21:10 IMPRESSION: Central venous access catheter placed via right IJ approach. Catheter tip at right atrium. No pneumothorax. Abdomen Ultrasound 08/16/17 00:00 IMPRESSION: Cholelithiasis. Gallbladder polyps. Cholecystitis. Assessment & Plan - Diagnosis (1) Gallstone pancreatitis Is this a current diagnosis for this admission?: Yes Plan: Reviewed the CT scan and the ultrasound with the radiologist and she does have evidence of common bile duct dilation on the CT. The common bile duct that was "visualized" on the ultrasound may not be the common bile duct. CT scan also demonstrates some inflammatory changes at the head of the pancreas without a pancreatic head mass. With her gallstones and marked elevation of her lipase diagnosis of gallstone pancreatitis appear certain. Recommend bowel rest supportive care. Once pancreatitis has improved or resolved we will plan laparoscopic cholecystectomy. Patient pending MRCP to look for common bile duct stones.
--- NOTE | 2017-08-16 13:58 | RADIOLOGY REPORT (SQ) ---
EXAM DESCRIPTION: MRI ABDOMEN WITHOUT COMPLETED DATE/TIME: 08/16/2017 1:35 pm REASON FOR STUDY: Abdomnial pain COMPARISON: None. TECHNIQUE: Noncontrast MRCP. Source and MIP images reviewed. LIMITATIONS: None. FINDINGS: GALLBLADDER: There is mild gallbladder wall thickening with pericholecystic fluid. A few tiny gallstones are visualized. INTRAHEPATIC DUCTS: Nondilated. EXTRAHEPATIC DUCTS: The common bile duct is mildly dilated, measuring 8 mm. No definite intraluminal filling defect identified. PANCREAS: Generally homogeneous, no gross mass or significant signal alteration. No surrounding infl ammatory changes or fluid. Pancreatic duct is normal. LIVER, SPLEEN, KIDNEYS, ADRENALS: There is trace fluid around the liver. No other significant abnorm ality. VESSELS: No evidence of aneurysm. Grossly appropriate flow voids in the major vascular structures. LUNG BASES: Small pleural effusions. OTHER: No other significant finding. IMPRESSION: MILD GALLBLADDER WALL THICKENING WITH PERICHOLECYSTIC FLUID CONSISTENT WITH ACUTE CHOLEC YSTITIS. TRACE PERIHEPATIC FLUID. THE COMMON BILE DUCT IS MILDLY DILATED. NO DEFINITE DUCTAL STONE S VISUALIZED. CANNOT ENTIRELY EXCLUDE POSSIBLY OF A TINY STONE AT THE AMPULLA. NO OTHER SIGNIFICANT FINDINGS OTHER THAN SMALL PLEURAL EFFUSIONS. TECHNICAL DOCUMENTATION: JOB ID: [id number] [employer]- All Rights Reserved
--- NOTE | 2017-08-16 21:40 | EKG REPORT ---
SEVERITY:- ABNORMAL ECG - SINUS TACHYCARDIA MULTIPLE VENTRICULAR PREMATURE COMPLEXES BORDERLINE T WAVE ABNORMALITIES : Confirmed by: Yuridia Green 16-Aug-2017 21:39:37
[2017-08-17] MEDS: VANCOMYCIN HCL INJ 500 MG VIAL PO SCH ×2 (00:30→06:17)
[2017-08-17] MEDS: METRONIDAZOLE 500 MG/NS RTU 100 ML IV SCH ×2 (00:32→06:17)
[2017-08-17] MEDS: IMIPENEM/CILASTATIN SODIUM 500 MG in NORMAL SALINE 100 ML IV SCH ×2 (03:08→08:10)
--- NOTE | 2017-08-17 03:37 | PDOC PROGRESS REPORT ---
Subjective Progress Note for:: 08/16/17 Subjective:: Patient refers that feels better. Diarrhea is improving. Physical Exam Vital Signs: Temp Pulse Resp BP Pulse Ox 97.7 F 89 17 109/65 98 08/16/17 08:00 08/16/17 08:00 08/16/17 08:04 08/16/17 08:04 08/16/17 08:04 Intake & Output 08/15/17 08/16/17 08/17/17 06:59 06:59 06:59 Intake Total 1540 Output Total 1100 Balance 440 Weight 84 kg General appearance: PRESENT: no acute distress, cooperative Head exam: PRESENT: atraumatic, normocephalic Eye exam: PRESENT: EOMI, PERRLA Ear exam: PRESENT: normal external ear exam Mouth exam: PRESENT: moist, neck supple Neck exam: PRESENT: full ROM. ABSENT: JVD Respiratory exam: PRESENT: clear to auscultation thiago. ABSENT: chest wall tenderness, tachypnea Cardiovascular exam: PRESENT: RRR. ABSENT: diastolic murmur, gallop, systolic murmur Vascular exam: PRESENT: normal capillary refill GI/Abdominal exam: PRESENT: normal bowel sounds, soft. ABSENT: diminished bowel sounds, distended, guarding Extremities exam: PRESENT: full ROM. ABSENT: pedal edema Neurological exam: PRESENT: alert, oriented to person, oriented to place, oriented to time, oriented to situation Psychiatric exam: PRESENT: appropriate affect, normal mood Skin exam: PRESENT: normal color Results Laboratory Results: 08/16/17 04:40 08/16/17 04:40 08/15/17 08/16/17 08/16/17 22:50 04:40 04:40 WBC 13.1 H RBC 3.26 L Hgb 9.5 L D Hct 28.6 L MCV 88 MCH 29.0 MCHC 33.1 RDW 13.6 Plt Count 197 Seg Neutrophils % 81.0 H Lymphocytes % 11.8 L Monocytes % 6.0 Eosinophils % 0.8 Basophils % 0.4 Absolute Neutrophils 10.6 H Absolute Lymphocytes 1.6 Absolute Monocytes 0.8 Absolute Eosinophils 0.1 Absolute Basophils 0.1 Sodium 144.1 Potassium 3.6 Chloride 112 H Carbon Dioxide 21 L Anion Gap 11 BUN 24 H Creatinine 1.32 H Est GFR ( Amer) 47 L Est GFR (Non-Af Amer) 39 L Glucose 119 H Lactic Acid 0.7 Calcium 7.1 L Magnesium 2.2 Albumin Blood Type Antibody Screen 08/16/17 08/16/17 04:40 06:28 WBC RBC Hgb Hct MCV MCH MCHC RDW Plt Count Seg Neutrophils % Lymphocytes % Monocytes % Eosinophils % Basophils % Absolute Neutrophils Absolute Lymphocytes Absolute Monocytes Absolute Eosinophils Absolute Basophils Sodium Potassium Chloride Carbon Dioxide Anion Gap BUN Creatinine Est GFR ( Amer) Est GFR (Non-Af Amer) Glucose Lactic Acid Calcium Magnesium Albumin 2.4 L Blood Type A POSITIVE Antibody Screen NEGATIVE Impressions: Abdomen/Pelvis CT 08/15/17 17:19 IMPRESSION: 1. Cholelithiasis versus a small calcified gallbladder polyp. 2. Atherosclerosis as described. 3. Diverticulosis coli. 4. Osseous changes as described. Chest X-Ray 08/15/17 21:10 IMPRESSION: Central venous access catheter placed via right IJ approach. Catheter tip at right atrium. No pneumothorax. Abdomen Ultrasound 08/16/17 00:00 IMPRESSION: Cholelithiasis. Gallbladder polyps. Cholecystitis. Assessment & Plan - Diagnosis (1) Abnormal abdominal CT scan Is this a current diagnosis for this admission?: Yes Plan: To be seen by surgeon for furthe input regardign abnormalities in gallbladder (2) Acute infectious diarrhea Is this a current diagnosis for this admission?: Yes (3) Acute renal failure Qualifiers: Acute renal failure type: with acute tubular necrosis Qualified Code(s): N17.0 - Acute kidney failure with tubular necrosis Is this a current diagnosis for this admission?: Yes Plan: Due to infectious process. Trend and expect to improve after fluids (4) Diabetes mellitus type 2 in obese Is this a current diagnosis for this admission?: Yes Plan: Discontinue insulin drip. Place on longacting, sliding and bedside glucose (5) Septic shock Is this a current diagnosis for this admission?: Yes Plan: Patient perfusing well. To discontinue levophed (6) UTI (urinary tract infection) Qualifiers: Urinary tract infection type: acute cystitis Hematuria presence: without hematuria Qualified Code(s): N30.00 - Acute cystitis without hematuria Is this a current diagnosis for this admission?: Yes Plan: Contineu present treatment - Time Time Spent with patient: 15-24 minutes Medications reviewed and adjusted accordingly: Yes Anticipated discharge: Home Within: within 72 hours - Inpatient Certification Based on my medical assessment, after consideration of the patient's comorbidities, presenting symptoms, or acuity I expect that the services needed warrant INPATIENT care.: Yes I certify that my determination is in accordance with my understanding of Medicare's requirements for reasonable and necessary INPATIENT services [42 CFR 412.3e].: Yes Medical Necessity: Need Close Monitoring Due to Risk of Patient Decompensation, Need For IV Fluids, Need for IV Antibiotics
[2017-08-17] MEDS: HEPARIN SOD (PORCINE) 5,000 UNIT/ML 1 ML SYRINGE SUBCUT SCH ×3 (06:18→21:25)
[2017-08-17] MEDS: NORMAL SALINE 1000 ML 1,000 ML IV PRN (07:23)
--- NOTE | 2017-08-17 08:57 | PDOC PROGRESS REPORT ---
Subjective Progress Note for:: 08/17/17 Subjective:: Patient refers that feels better and is not having diarrhea. Physical Exam Vital Signs: Temp Pulse Resp BP Pulse Ox 98.5 F 78 16 131/60 H 95 08/16/17 17:43 08/16/17 20:00 08/17/17 06:07 08/17/17 06:07 08/17/17 06:07 Intake & Output 08/16/17 08/17/17 08/18/17 06:59 06:59 06:59 Intake Total 1540 1903 Output Total 1100 1655 Balance 440 248 Weight 84 kg General appearance: PRESENT: no acute distress, cooperative, obese Head exam: PRESENT: atraumatic, normocephalic Eye exam: PRESENT: conjunctiva pink, EOMI, PERRLA Ear exam: PRESENT: normal external ear exam Mouth exam: PRESENT: moist Neck exam: PRESENT: full ROM. ABSENT: JVD, tenderness Respiratory exam: PRESENT: clear to auscultation thiago Cardiovascular exam: PRESENT: RRR. ABSENT: diastolic murmur, systolic murmur Vascular exam: PRESENT: normal capillary refill GI/Abdominal exam: PRESENT: normal bowel sounds. ABSENT: distended, guarding, tenderness Extremities exam: PRESENT: full ROM. ABSENT: pedal edema Musculoskeletal exam: ABSENT: tenderness Neurological exam: PRESENT: alert, oriented to person, oriented to place, oriented to time Psychiatric exam: PRESENT: appropriate affect, normal mood Results Laboratory Results: 08/16/17 04:40 08/16/17 04:40 08/16/17 11:40 Amylase 605 H Lipase 4614.8 H Impressions: Abdomen/Pelvis CT 08/15/17 17:19 IMPRESSION: 1. Cholelithiasis versus a small calcified gallbladder polyp. 2. Atherosclerosis as described. 3. Diverticulosis coli. 4. Osseous changes as described. Chest X-Ray 08/15/17 21:10 IMPRESSION: Central venous access catheter placed via right IJ approach. Catheter tip at right atrium. No pneumothorax. Abdomen MRI 08/16/17 00:00 IMPRESSION: MILD GALLBLADDER WALL THICKENING WITH PERICHOLECYSTIC FLUID CONSISTENT WITH ACUTE CHOLECYSTITIS. TRACE PERIHEPATIC FLUID. THE COMMON BILE DUCT IS MILDLY DILATED. NO DEFINITE DUCTAL STONES VISUALIZED. CANNOT ENTIRELY EXCLUDE POSSIBLY OF A TINY STONE AT THE AMPULLA. NO OTHER SIGNIFICANT FINDINGS OTHER THAN SMALL PLEURAL EFFUSIONS. Abdomen Ultrasound 08/16/17 00:00 IMPRESSION: Cholelithiasis. Gallbladder polyps. Cholecystitis. Assessment & Plan - Diagnosis (1) Abnormal abdominal CT scan Is this a current diagnosis for this admission?: Yes Plan: Surgery following up (2) Acute infectious diarrhea Is this a current diagnosis for this admission?: Yes Plan: Resolved. 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 (3) Acute renal failure Qualifiers: Acute renal failure type: with acute tubular necrosis Qualified Code(s): N17.0 - Acute kidney failure with tubular necrosis Is this a current diagnosis for this admission?: Yes Plan: improving (4) Diabetes mellitus type 2 in obese Is this a current diagnosis for this admission?: Yes Plan: Continue longacting, sliding and bedside glucose (5) Septic shock Is this a current diagnosis for this admission?: Yes Plan: Resolved and due to urinary tract infection (6) UTI (urinary tract infection) Qualifiers: Urinary tract infection type: acute cystitis Hematuria presence: without hematuria Qualified Code(s): N30.00 - Acute cystitis without hematuria Is this a current diagnosis for this admission?: Yes Plan: Discontinue flagyl, vancomycin and imipenem. Place on levaquin. Willl follow up urine culture result. - Time Time Spent with patient: 15-24 minutes Medications reviewed and adjusted accordingly: Yes Anticipated discharge: Home - Inpatient Certification Based on my medical assessment, after consideration of the patient's comorbidities, presenting symptoms, or acuity I expect that the services needed warrant INPATIENT care.: Yes I certify that my determination is in accordance with my understanding of Medicare's requirements for reasonable and necessary INPATIENT services [42 CFR 412.3e].: Yes Medical Necessity: Need Close Monitoring Due to Risk of Patient Decompensation, Need For IV Fluids
[2017-08-17 09:12] LABS: ABSOLUTE BASOPHILS # (AUTO) 0.1 10^3/uL (0.0-0.2); ABSOLUTE EOSINOPHILS # (AUTO) 0.1 10^3/uL (0.0-0.6); ABSOLUTE LYMPHOCYTES (AUTO) 1.8 10^3/uL (0.5-4.7); ABSOLUTE MONOCYTES (AUTO) 0.6 10^3/uL (0.1-1.4); ABSOLUTE NEUT (AUTO) 8.2 10^3/uL (1.7-8.2); EOSINOPHILS % (AUTO) 1.3 % (0-6); HEMATOCRIT 30.7 % (36.0-47.0); HEMOGLOBIN 10.4 g/dL (12.0-15.5); HGB HCT DIFFERENCE 0.5; LYMPHOCYTES % (AUTO) 16.7 % (13-45); MEAN CORPUSCULAR HEMOGLOBIN 29.4 pg (27.0-33.4); MEAN CORPUSCULAR HGB CONC 33.9 g/dL (32.0-36.0); MEAN CORPUSCULAR VOLUME 87 fl (80-97); MONOCYTES % (AUTO) 5.6 % (3-13); RED BLOOD COUNT 3.53 10^6/uL (3.72-5.28); RED CELL DISTRIBUTION WIDTH 13.7 % (11.5-14.0); SEGMENTED NEUTROPHILS % (AUTO) 75.4 % (42-78); WHITE BLOOD COUNT 10.9 10^3/uL (4.0-10.5)
[2017-08-17 09:33] LABS: ANION GAP 13 (5-19); BLOOD UREA NITROGEN 19 mg/dL (7-20); CALCIUM 7.8 mg/dL (8.4-10.2); CARBON DIOXIDE 19 mmol/L (22-30); CHLORIDE 113 mmol/L (98-107); CREATININE RESULT 1.07 mg/dL (0.52-1.25); GLUCOSE 76 mg/dL (75-110); MAGNESIUM 2.1 mg/dL (1.6-2.3); POTASSIUM 3.7 mmol/L (3.6-5.0); SODIUM 144.5 mmol/L (137-145)
[2017-08-17] MEDS: FAMOTIDINE INJ/PF 20 MG/2 ML SDV IV SCH (09:53)
[2017-08-17] MEDS: MAGNESIUM OXIDE 400 MG TABLET PO SCH (09:54)
[2017-08-17] MEDS: ACETAMINOPHEN 325 MG TABLET PO PRN (09:55)
[2017-08-17] MEDS: INSULIN GLARGINE,HUM.REC.ANLOG 300 UNIT/3 ML INSULN.PEN SUBCUT SCH (09:59)
[2017-08-17] MEDS ORDERED: LEVOFLOXACIN 500 MG TABLET PO ONE (10:00)
[2017-08-17] MEDS: ONDANSETRON HCL INJ/PF 4 MG/2 ML SDV IV PRN (12:16)
[2017-08-17] MEDS: DEXTROSE 50%-WATER 25 GM/50 ML DISP.SYRIN IV PRN (17:08)
--- NOTE | 2017-08-17 20:41 | PDOC PROGRESS REPORT ---
Subjective Progress Note for:: 08/17/17 Subjective:: Less abdominal pains and tenderness Physical Exam Vital Signs: Temp Pulse Resp BP Pulse Ox 98.0 F 78 16 131/76 H 97 08/17/17 14:45 08/17/17 14:45 08/17/17 14:45 08/17/17 14:45 08/17/17 14:45 Intake & Output 08/16/17 08/17/17 08/18/17 06:59 06:59 06:59 Intake Total 1540 1903 350 Output Total 1100 1655 850 Balance 440 248 -500 Weight 84 kg 84 kg General appearance: PRESENT: no acute distress Eye exam: PRESENT: conjunctiva pink Mouth exam: PRESENT: moist, tongue midline GI/Abdominal exam: PRESENT: soft - mild tenderness RUQ Results Laboratory Results: 08/17/17 08:55 08/17/17 08:55 08/17/17 08/17/17 08:55 08:55 WBC 10.9 H RBC 3.53 L Hgb 10.4 L Hct 30.7 L MCV 87 MCH 29.4 MCHC 33.9 RDW 13.7 Plt Count 198 Seg Neutrophils % 75.4 Lymphocytes % 16.7 Monocytes % 5.6 Eosinophils % 1.3 Basophils % 1.0 Absolute Neutrophils 8.2 Absolute Lymphocytes 1.8 Absolute Monocytes 0.6 Absolute Eosinophils 0.1 Absolute Basophils 0.1 Sodium 144.5 Potassium 3.7 Chloride 113 H Carbon Dioxide 19 L Anion Gap 13 BUN 19 Creatinine 1.07 Est GFR ( Amer) 59 L Est GFR (Non-Af Amer) 49 L Glucose 76 Calcium 7.8 L Magnesium 2.1 Impressions: Abdomen/Pelvis CT 08/15/17 17:19 IMPRESSION: 1. Cholelithiasis versus a small calcified gallbladder polyp. 2. Atherosclerosis as described. 3. Diverticulosis coli. 4. Osseous changes as described. Chest X-Ray 08/15/17 21:10 IMPRESSION: Central venous access catheter placed via right IJ approach. Catheter tip at right atrium. No pneumothorax. Abdomen MRI 08/16/17 00:00 IMPRESSION: MILD GALLBLADDER WALL THICKENING WITH PERICHOLECYSTIC FLUID CONSISTENT WITH ACUTE CHOLECYSTITIS. TRACE PERIHEPATIC FLUID. THE COMMON BILE DUCT IS MILDLY DILATED. NO DEFINITE DUCTAL STONES VISUALIZED. CANNOT ENTIRELY EXCLUDE POSSIBLY OF A TINY STONE AT THE AMPULLA. NO OTHER SIGNIFICANT FINDINGS OTHER THAN SMALL PLEURAL EFFUSIONS. Abdomen Ultrasound 08/16/17 00:00 IMPRESSION: Cholelithiasis. Gallbladder polyps. Cholecystitis. Assessment & Plan - Diagnosis (1) Acute cholecystitis due to biliary calculus Is this a current diagnosis for this admission?: Yes - Time Time Spent with patient: 15-24 minutes - Plan Summary Plan Summary: Monitor LFTs and Lipase,CBC with Dif Start liquids in am if Lipase trending down May need lap edvin vs cholecystostomy tube
[2017-08-18] MEDS: DEXTROSE 50%-WATER 25 GM/50 ML DISP.SYRIN IV PRN (00:32)
[2017-08-18] MEDS: HEPARIN SOD (PORCINE) 5,000 UNIT/ML 1 ML SYRINGE SUBCUT SCH ×3 (05:05→23:00)
[2017-08-18] MEDS ORDERED: LISINOPRIL 10 MG TABLET PO ONE (05:31)
[2017-08-18] MEDS ORDERED: PHARMACY COMMUNICATION ORDER MC NR (05:45)
[2017-08-18 05:54] LABS: ABSOLUTE BASOPHILS # (AUTO) 0.1 10^3/uL (0.0-0.2); ABSOLUTE EOSINOPHILS # (AUTO) 0.2 10^3/uL (0.0-0.6); ABSOLUTE LYMPHOCYTES (AUTO) 1.4 10^3/uL (0.5-4.7); ABSOLUTE MONOCYTES (AUTO) 0.5 10^3/uL (0.1-1.4); ABSOLUTE NEUT (AUTO) 7.1 10^3/uL (1.7-8.2); BASOPHILS % (AUTO) 1.3 % (0-2); HEMATOCRIT 30.6 % (36.0-47.0); HEMOGLOBIN 10.4 g/dL (12.0-15.5); HGB HCT DIFFERENCE 0.6; LYMPHOCYTES % (AUTO) 15.1 % (13-45); MEAN CORPUSCULAR HEMOGLOBIN 29.8 pg (27.0-33.4); MEAN CORPUSCULAR HGB CONC 33.9 g/dL (32.0-36.0); MEAN CORPUSCULAR VOLUME 88 fl (80-97); MONOCYTES % (AUTO) 5.8 % (3-13); RED BLOOD COUNT 3.48 10^6/uL (3.72-5.28); RED CELL DISTRIBUTION WIDTH 13.7 % (11.5-14.0); SEGMENTED NEUTROPHILS % (AUTO) 75.8 % (42-78); WHITE BLOOD COUNT 9.3 10^3/uL (4.0-10.5)
[2017-08-18 06:17] LABS: ALANINE AMINOTRANSFERASE 131 U/L (9-52); ALBUMIN 2.5 g/dL (3.5-5.0); ALKALINE PHOSPHATASE 166 U/L (38-126); ANION GAP 14 (5-19); ASPARTATE AMINO TRANSFERASE 90 U/L (14-36); BILIRUBIN,DIRECT 0.7 mg/dL (0.0-0.4); BILIRUBIN,TOTAL 0.9 mg/dL (0.2-1.3); BLOOD UREA NITROGEN 17 mg/dL (7-20); CALCIUM 8.2 mg/dL (8.4-10.2); CARBON DIOXIDE 19 mmol/L (22-30); CHLORIDE 113 mmol/L (98-107); CREATININE RESULT 0.96 mg/dL (0.52-1.25); GLUCOSE 78 mg/dL (75-110); LIPASE 481.6 U/L (23-300); POTASSIUM 3.8 mmol/L (3.6-5.0); SODIUM 145.9 mmol/L (137-145); TOTAL PROTEIN 4.9 g/dL (6.3-8.2)
[2017-08-18] MEDS: NORMAL SALINE 1000 ML 1,000 ML IV PRN (08:46)
[2017-08-18] MEDS: INSULIN GLARGINE,HUM.REC.ANLOG 300 UNIT/3 ML INSULN.PEN SUBCUT SCH (09:51)
[2017-08-18] MEDS ORDERED: LEVOFLOXACIN 250 MG TABLET PO SCH (10:00)
[2017-08-18] MEDS: LISINOPRIL 10 MG TABLET PO SCH ×2 (10:20→22:59)
--- NOTE | 2017-08-18 11:43 | EKG REPORT ---
SEVERITY:- NORMAL ECG - SINUS RHYTHM : Confirmed by: Yuridia Green 18-Aug-2017 11:41:44
[2017-08-18] MEDS: POTASSI CL 10 MEQ/D5-1/2NS 1L 10 MEQ/1,000 ML RTUINJ IV PRN ×2 (12:35→22:58)
--- NOTE | 2017-08-18 14:22 | PDOC PROGRESS REPORT ---
Subjective Progress Note for:: 08/18/17 Subjective:: Patient states that she woke up with severe bout of cough. The nurses came immediately to the room and checked on her. She relates that she was doing well except for the cough spell which then went away. Physical Exam Vital Signs: Temp Pulse Resp BP Pulse Ox 99.3 F 76 17 136/71 H 99 08/18/17 04:00 08/18/17 04:00 08/18/17 04:00 08/18/17 04:00 08/18/17 04:00 Intake & Output 08/17/17 08/18/17 08/19/17 06:59 06:59 05:59 Intake Total 1903 4154 Output Total 1655 850 Balance 248 3304 Weight 104 kg General appearance: PRESENT: no acute distress, cooperative, obese Head exam: PRESENT: atraumatic, normocephalic Eye exam: PRESENT: conjunctiva pink, EOMI, PERRLA Ear exam: PRESENT: normal external ear exam Mouth exam: PRESENT: moist, neck supple Neck exam: PRESENT: full ROM. ABSENT: JVD, tenderness Respiratory exam: PRESENT: clear to auscultation thiago Cardiovascular exam: PRESENT: RRR. ABSENT: diastolic murmur, systolic murmur Vascular exam: PRESENT: normal capillary refill GI/Abdominal exam: PRESENT: normal bowel sounds, soft. ABSENT: guarding, tenderness Extremities exam: PRESENT: full ROM. ABSENT: joint swelling, pedal edema Neurological exam: PRESENT: alert, awake, oriented to person, oriented to place , oriented to time Psychiatric exam: PRESENT: appropriate affect, normal mood Skin exam: PRESENT: intact, normal color Results Laboratory Results: 08/18/17 05:02 08/18/17 05:02 08/17/17 08/17/17 08/18/17 08:55 08:55 05:02 WBC 10.9 H 9.3 RBC 3.53 L 3.48 L Hgb 10.4 L 10.4 L Hct 30.7 L 30.6 L MCV 87 88 MCH 29.4 29.8 MCHC 33.9 33.9 RDW 13.7 13.7 Plt Count 198 202 Seg Neutrophils % 75.4 75.8 Lymphocytes % 16.7 15.1 Monocytes % 5.6 5.8 Eosinophils % 1.3 2.0 Basophils % 1.0 1.3 Absolute Neutrophils 8.2 7.1 Absolute Lymphocytes 1.8 1.4 Absolute Monocytes 0.6 0.5 Absolute Eosinophils 0.1 0.2 Absolute Basophils 0.1 0.1 Sodium 144.5 Potassium 3.7 Chloride 113 H Carbon Dioxide 19 L Anion Gap 13 BUN 19 Creatinine 1.07 Est GFR ( Amer) 59 L Est GFR (Non-Af Amer) 49 L Glucose 76 Calcium 7.8 L Magnesium 2.1 Total Bilirubin AST ALT Alkaline Phosphatase Total Protein Albumin Lipase 08/18/17 05:02 WBC RBC Hgb Hct MCV MCH MCHC RDW Plt Count Seg Neutrophils % Lymphocytes % Monocytes % Eosinophils % Basophils % Absolute Neutrophils Absolute Lymphocytes Absolute Monocytes Absolute Eosinophils Absolute Basophils Sodium 145.9 H Potassium 3.8 Chloride 113 H Carbon Dioxide 19 L Anion Gap 14 BUN 17 Creatinine 0.96 Est GFR ( Amer) > 60 Est GFR (Non-Af Amer) 56 L Glucose 78 Calcium 8.2 L Magnesium 2.0 Total Bilirubin 0.9 AST 90 H ALT 131 H Alkaline Phosphatase 166 H Total Protein 4.9 L Albumin 2.5 L Lipase 481.6 H Impressions: Abdomen/Pelvis CT 08/15/17 17:19 IMPRESSION: 1. Cholelithiasis versus a small calcified gallbladder polyp. 2. Atherosclerosis as described. 3. Diverticulosis coli. 4. Osseous changes as described. Chest X-Ray 08/15/17 21:10 IMPRESSION: Central venous access catheter placed via right IJ approach. Catheter tip at right atrium. No pneumothorax. Abdomen MRI 08/16/17 00:00 IMPRESSION: MILD GALLBLADDER WALL THICKENING WITH PERICHOLECYSTIC FLUID CONSISTENT WITH ACUTE CHOLECYSTITIS. TRACE PERIHEPATIC FLUID. THE COMMON BILE DUCT IS MILDLY DILATED. NO DEFINITE DUCTAL STONES VISUALIZED. CANNOT ENTIRELY EXCLUDE POSSIBLY OF A TINY STONE AT THE AMPULLA. NO OTHER SIGNIFICANT FINDINGS OTHER THAN SMALL PLEURAL EFFUSIONS. Abdomen Ultrasound 08/16/17 00:00 IMPRESSION: Cholelithiasis. Gallbladder polyps. Cholecystitis. Assessment & Plan - Diagnosis (1) Acute infectious diarrhea Is this a current diagnosis for this admission?: Yes Plan: Resolved. Putting everything together and longevity of symptom may relate to gallbladder disease. Resolved. (2) Acute renal failure Qualifiers: Acute renal failure type: with acute tubular necrosis Qualified Code(s): N17.0 - Acute kidney failure with tubular necrosis Is this a current diagnosis for this admission?: Yes (3) Diabetes mellitus type 2 in obese Is this a current diagnosis for this admission?: Yes Plan: To decrease longacting and continue sliding and bedside glucose. Patient NPO except for meds. To place in maintenance fluids with D5. (4) Septic shock Is this a current diagnosis for this admission?: Yes Plan: Resolved and due to urinary tract infection secondary to translocation from gallbladder. (5) UTI (urinary tract infection) Qualifiers: Urinary tract infection type: acute cystitis Hematuria presence: without hematuria Qualified Code(s): N30.00 - Acute cystitis without hematuria Is this a current diagnosis for this admission?: Yes Plan: Discontinue flagyl, vancomycin and imipenem. Continue levaquin (6) Acute cholecystitis due to biliary calculus Is this a current diagnosis for this admission?: Yes Plan: For possible cholecystectomy (7) Gallstone pancreatitis Is this a current diagnosis for this admission?: Yes Plan: Fluids and NPO. (8) Bradycardia Is this a current diagnosis for this admission?: Yes Plan: Shortlived while coughing. Order troponin and echocardiogram (in anticpation of surgery since no evidence in her chart of an echocardiogram result). - Time Time Spent with patient: 15-24 minutes Medications reviewed and adjusted accordingly: Yes Anticipated discharge: Home - Inpatient Certification Based on my medical assessment, after consideration of the patient's comorbidities, presenting symptoms, or acuity I expect that the services needed warrant INPATIENT care.: Yes I certify that my determination is in accordance with my understanding of Medicare's requirements for reasonable and necessary INPATIENT services [42 CFR 412.3e].: Yes Medical Necessity: Need For IV Fluids, Need for IV Antibiotics
--- NOTE | 2017-08-18 19:49 | PDOC PROGRESS REPORT ---
Subjective Progress Note for:: 08/18/17 Subjective:: Abdominal pain seems to have subsided quite a bit. She is hungry Physical Exam Vital Signs: Temp Pulse Resp BP Pulse Ox 98.4 F 74 14 161/67 H 100 08/18/17 15:46 08/18/17 15:46 08/18/17 15:46 08/18/17 15:46 08/18/17 15:46 Intake & Output 08/17/17 08/18/17 08/19/17 06:59 06:59 05:59 Intake Total 1903 4154 Output Total 1655 850 Balance 248 3304 Weight 104 kg Exam: She remains afebrile. Abdomen is soft though still has some right upper quadrant tenderness. Results Laboratory Results: 08/18/17 05:02 08/18/17 05:02 08/18/17 08/18/17 05:02 05:02 WBC 9.3 RBC 3.48 L Hgb 10.4 L Hct 30.6 L MCV 88 MCH 29.8 MCHC 33.9 RDW 13.7 Plt Count 202 Seg Neutrophils % 75.8 Lymphocytes % 15.1 Monocytes % 5.8 Eosinophils % 2.0 Basophils % 1.3 Absolute Neutrophils 7.1 Absolute Lymphocytes 1.4 Absolute Monocytes 0.5 Absolute Eosinophils 0.2 Absolute Basophils 0.1 Sodium 145.9 H Potassium 3.8 Chloride 113 H Carbon Dioxide 19 L Anion Gap 14 BUN 17 Creatinine 0.96 Est GFR ( Amer) > 60 Est GFR (Non-Af Amer) 56 L Glucose 78 Calcium 8.2 L Magnesium 2.0 Total Bilirubin 0.9 AST 90 H ALT 131 H Alkaline Phosphatase 166 H Total Protein 4.9 L Albumin 2.5 L Lipase 481.6 H 08/18/17 08/18/17 11:16 17:15 Troponin I 0.143 0.152 Impressions: Abdomen/Pelvis CT 08/15/17 17:19 IMPRESSION: 1. Cholelithiasis versus a small calcified gallbladder polyp. 2. Atherosclerosis as described. 3. Diverticulosis coli. 4. Osseous changes as described. Chest X-Ray 08/15/17 21:10 IMPRESSION: Central venous access catheter placed via right IJ approach. Catheter tip at right atrium. No pneumothorax. Abdomen MRI 08/16/17 00:00 IMPRESSION: MILD GALLBLADDER WALL THICKENING WITH PERICHOLECYSTIC FLUID CONSISTENT WITH ACUTE CHOLECYSTITIS. TRACE PERIHEPATIC FLUID. THE COMMON BILE DUCT IS MILDLY DILATED. NO DEFINITE DUCTAL STONES VISUALIZED. CANNOT ENTIRELY EXCLUDE POSSIBLY OF A TINY STONE AT THE AMPULLA. NO OTHER SIGNIFICANT FINDINGS OTHER THAN SMALL PLEURAL EFFUSIONS. Abdomen Ultrasound 08/16/17 00:00 IMPRESSION: Cholelithiasis. Gallbladder polyps. Cholecystitis. Assessment & Plan - Diagnosis (1) Acute cholecystitis due to biliary calculus Is this a current diagnosis for this admission?: Yes - Time Time Spent with patient: 15-24 minutes - Plan Summary Plan Summary: I discussed patient's condition with the hospitalist. Patient will likely need prior to any major intervention. Also her enzyme is still slightly elevated. She will eventually need cholecystectomy but if she is not cleared by cardiology then she will need cholecystostomy tube placement by IR. We will continue to follow her liver and lipase enzymes.
[2017-08-19] MEDS ORDERED: ENALAPRILAT DIHYDRATE INJ/PF 1.25 MG/1 ML SDV IV ONE (01:45)
[2017-08-19] MEDS ORDERED: FUROSEMIDE INJ/PF 20 MG/2 ML SDV IV ONE (01:45)
[2017-08-19 05:53] LABS: MEAN CORPUSCULAR HGB CONC 33.4 g/dL (32.0-36.0); MEAN CORPUSCULAR VOLUME 87 fl (80-97); RED CELL DISTRIBUTION WIDTH 13.9 % (11.5-14.0); WHITE BLOOD COUNT 9.9 10^3/uL (4.0-10.5)
[2017-08-19] MEDS: HEPARIN SOD (PORCINE) 5,000 UNIT/ML 1 ML SYRINGE SUBCUT SCH ×3 (05:57→23:37)
[2017-08-19 06:23] LABS: ALANINE AMINOTRANSFERASE 95 U/L (9-52); ALBUMIN 2.7 g/dL (3.5-5.0); ALKALINE PHOSPHATASE 165 U/L (38-126); ANION GAP 13 (5-19); ASPARTATE AMINO TRANSFERASE 41 U/L (14-36); BILIRUBIN,DIRECT 0.7 mg/dL (0.0-0.4); BILIRUBIN,TOTAL 0.9 mg/dL (0.2-1.3); BLOOD UREA NITROGEN 15 mg/dL (7-20); CALCIUM 8.4 mg/dL (8.4-10.2); CARBON DIOXIDE 22 mmol/L (22-30); CHLORIDE 108 mmol/L (98-107); CREATININE RESULT 0.87 mg/dL (0.52-1.25); GLUCOSE 156 mg/dL (75-110); LIPASE 353.8 U/L (23-300); MAGNESIUM 1.6 mg/dL (1.6-2.3); POTASSIUM 3.7 mmol/L (3.6-5.0); SODIUM 142.8 mmol/L (137-145); TOTAL PROTEIN 5.1 g/dL (6.3-8.2)
[2017-08-19 06:28] LABS: BAND NEUTROPHILS % (MANUAL) 1 % (3-5); BASOPHILS % (MANUAL) 2 % (0-2); EOSINOPHILS % (MANUAL) 2 % (0-6); LYMPHOCYTES % (MANUAL) 14 % (13-45); TOTAL CELLS COUNTED 100
[2017-08-19 06:29] LABS: PLATELET CLUMPS PRESENT
[2017-08-19 06:30] LABS: BURR CELLS SLIGHT; POLYCHROMASIA SLIGHT; TOXIC GRANULATION SLIGHT
[2017-08-19] MEDS: INSULIN GLARGINE,HUM.REC.ANLOG 300 UNIT/3 ML INSULN.PEN SUBCUT SCH (10:01)
[2017-08-19] MEDS: LEVOFLOXACIN 500 MG/D5W RTU 500 MG/100 ML RTUPB IV SCH (10:07)
[2017-08-19] MEDS: LISINOPRIL 10 MG TABLET PO SCH ×2 (10:07→23:37)
[2017-08-19] MEDS: ACETAMINOPHEN 325 MG TABLET PO PRN ×2 (10:18→16:31)
[2017-08-19] MEDS: POTASSI CL 20 MEQ/D5-1/2NS 1L 1,000 ML IV PRN (13:32)
[2017-08-19] MEDS: HYDRALAZINE HCL INJ/PF 20 MG/1 ML SDV IV PRN (13:49)
[2017-08-19] MEDS ORDERED: RIFAXIMIN 200 MG TABLET PO ONE (16:00)
--- NOTE | 2017-08-19 16:21 | PDOC PROGRESS REPORT ---
Subjective Progress Note for:: 08/19/17 Subjective:: Patient complains of having headache in forehead. Denies chest pain, weakness or stomach pain. Physical Exam Vital Signs: Temp Pulse Resp BP Pulse Ox 98.7 F 73 18 182/88 H 97 08/19/17 00:48 08/19/17 02:00 08/19/17 00:48 08/19/17 01:13 EST 08/19/17 00 :48 Intake & Output 08/18/17 08/19/17 08/20/17 07:59 06:59 06:59 Intake Total Output Total Balance Weight General appearance: PRESENT: no acute distress, cooperative, obese Head exam: PRESENT: atraumatic, normocephalic Eye exam: PRESENT: conjunctiva pink, EOMI, PERRLA Ear exam: PRESENT: normal external ear exam Mouth exam: PRESENT: moist, neck supple Neck exam: PRESENT: full ROM. ABSENT: JVD, tenderness Respiratory exam: PRESENT: unlabored, other - faint bibasilar crackles. ABSENT : tachypnea Cardiovascular exam: PRESENT: RRR. ABSENT: diastolic murmur, gallop, systolic murmur Vascular exam: PRESENT: normal capillary refill GI/Abdominal exam: PRESENT: normal bowel sounds, soft. ABSENT: distended, guarding, tenderness Extremities exam: PRESENT: full ROM. ABSENT: joint swelling, pedal edema Musculoskeletal exam: PRESENT: ambulatory Neurological exam: PRESENT: alert, oriented to person, oriented to place Psychiatric exam: PRESENT: appropriate affect, normal mood Skin exam: PRESENT: intact, normal color Results Laboratory Results: 08/19/17 05:32 08/19/17 05:32 08/19/17 08/19/17 05:32 05:32 WBC 9.9 RBC 3.80 Hgb 11.0 L Hct 33.0 L MCV 87 MCH 29.0 MCHC 33.4 RDW 13.9 Plt Count 237 Seg Neutrophils % Not Reportable Lymphocytes % Not Reportable Monocytes % Not Reportable Eosinophils % Not Reportable Basophils % Not Reportable Absolute Neutrophils Not Reportable Absolute Lymphocytes Not Reportable Absolute Monocytes Not Reportable Absolute Eosinophils Not Reportable Absolute Basophils Not Reportable Sodium 142.8 Potassium 3.7 Chloride 108 H Carbon Dioxide 22 Anion Gap 13 BUN 15 Creatinine 0.87 Est GFR ( Amer) > 60 Est GFR (Non-Af Amer) > 60 Glucose 156 H Calcium 8.4 Magnesium 1.6 Total Bilirubin 0.9 AST 41 H ALT 95 H Alkaline Phosphatase 165 H Total Protein 5.1 L Albumin 2.7 L Lipase 353.8 H 08/18/17 08/18/17 08/18/17 11:16 17:15 23:22 Troponin I 0.143 0.152 0.131 08/19/17 05:32 Troponin I 0.107 Impressions: Abdomen/Pelvis CT 08/15/17 17:19 IMPRESSION: 1. Cholelithiasis versus a small calcified gallbladder polyp. 2. Atherosclerosis as described. 3. Diverticulosis coli. 4. Osseous changes as described. Chest X-Ray 08/15/17 21:10 IMPRESSION: Central venous access catheter placed via right IJ approach. Catheter tip at right atrium. No pneumothorax. Abdomen MRI 08/16/17 00:00 IMPRESSION: MILD GALLBLADDER WALL THICKENING WITH PERICHOLECYSTIC FLUID CONSISTENT WITH ACUTE CHOLECYSTITIS. TRACE PERIHEPATIC FLUID. THE COMMON BILE DUCT IS MILDLY DILATED. NO DEFINITE DUCTAL STONES VISUALIZED. CANNOT ENTIRELY EXCLUDE POSSIBLY OF A TINY STONE AT THE AMPULLA. NO OTHER SIGNIFICANT FINDINGS OTHER THAN SMALL PLEURAL EFFUSIONS. Abdomen Ultrasound 08/16/17 00:00 IMPRESSION: Cholelithiasis. Gallbladder polyps. Cholecystitis. Assessment & Plan - Diagnosis (1) Acute infectious diarrhea Is this a current diagnosis for this admission?: Yes Plan: Recurring. Patient carries a hx of IBS. To try rifaximin. (2) Acute renal failure Qualifiers: Acute renal failure type: with acute tubular necrosis Qualified Code(s): N17.0 - Acute kidney failure with tubular necrosis Is this a current diagnosis for this admission?: Yes Plan: Resolved (3) Diabetes mellitus type 2 in obese Is this a current diagnosis for this admission?: Yes Plan: Restart maintenance fluids since NPO. (4) Septic shock Is this a current diagnosis for this admission?: Yes Plan: Resolved and due to urinary tract infection secondary to translocation from gallbladder. (5) UTI (urinary tract infection) Qualifiers: Urinary tract infection type: acute cystitis Hematuria presence: without hematuria Qualified Code(s): N30.00 - Acute cystitis without hematuria Is this a current diagnosis for this admission?: Yes Plan: Continue levaquin (6) Acute cholecystitis due to biliary calculus Is this a current diagnosis for this admission?: Yes Plan: For possible cholecystectomy (7) Gallstone pancreatitis Is this a current diagnosis for this admission?: Yes Plan: Fluids and NPO. Surgery following up. (8) Bradycardia Is this a current diagnosis for this admission?: Yes Plan: Shortlived while coughing. Echocardiogram in AM (9) NSTEMI (non-ST elevated myocardial infarction) Is this a current diagnosis for this admission?: Yes Plan: Likely type 2 in the setting of sepsis and pancreatitis. ECHO in AM. Will consult cards in AM. (10) HTN (hypertension) Is this a current diagnosis for this admission?: Yes Plan: Continue lisinopril. Order BNP to evaluate for failure since got fluid resuscitated on admission. - Time Time Spent with patient: 15-24 minutes Medications reviewed and adjusted accordingly: Yes Anticipated discharge: Home Within: Other - unable to tell since may have to undergo surgery
[2017-08-19] MEDS ORDERED: FUROSEMIDE INJ/PF 40 MG/4 ML SDV IV ONE (17:00)
[2017-08-19] MEDS ORDERED: METOPROLOL SUCCINATE 50 MG TAB.SR.24H PO ONE (17:00)
[2017-08-19] MEDS: INSULIN LISPRO 100 UNIT/ML 3 ML VIAL SUBCUT PRN (17:08)
--- NOTE | 2017-08-19 19:46 | PDOC PROGRESS REPORT ---
Subjective Progress Note for:: 08/19/17 Subjective:: Denies any abdominal pains and feels a lot better Physical Exam Vital Signs: Temp Pulse Resp BP Pulse Ox 97.2 F 85 20 157/80 H 96 08/19/17 16:45 08/19/17 19:00 08/19/17 16:45 08/19/17 16:45 08/19/17 16:45 Intake & Output 08/18/17 08/19/17 08/20/17 07:59 06:59 06:59 Intake Total 1373 Output Total Balance 1373 Weight General appearance: PRESENT: no acute distress Exam: Abdomen is soft and nontender Results Laboratory Results: 08/19/17 05:32 08/19/17 05:32 08/19/17 08/19/17 08/19/17 05:32 05:32 08:21 WBC 9.9 RBC 3.80 Hgb 11.0 L Hct 33.0 L MCV 87 MCH 29.0 MCHC 33.4 RDW 13.9 Plt Count 237 Seg Neutrophils % Not Reportable Lymphocytes % Not Reportable Monocytes % Not Reportable Eosinophils % Not Reportable Basophils % Not Reportable Absolute Neutrophils Not Reportable Absolute Lymphocytes Not Reportable Absolute Monocytes Not Reportable Absolute Eosinophils Not Reportable Absolute Basophils Not Reportable Sodium 142.8 Potassium 3.7 Chloride 108 H Carbon Dioxide 22 Anion Gap 13 BUN 15 Creatinine 0.87 Est GFR ( Amer) > 60 Est GFR (Non-Af Amer) > 60 Glucose 156 H Calcium 8.4 Magnesium 1.6 Total Bilirubin 0.9 AST 41 H ALT 95 H Alkaline Phosphatase 165 H Total Protein 5.1 L Albumin 2.7 L Lipase 353.8 H Stool Occult Blood Stool for White Cells NO WBCs SEEN 08/19/17 08:21 WBC RBC Hgb Hct MCV MCH MCHC RDW Plt Count Seg Neutrophils % Lymphocytes % Monocytes % Eosinophils % Basophils % Absolute Neutrophils Absolute Lymphocytes Absolute Monocytes Absolute Eosinophils Absolute Basophils Sodium Potassium Chloride Carbon Dioxide Anion Gap BUN Creatinine Est GFR ( Amer) Est GFR (Non-Af Amer) Glucose Calcium Magnesium Total Bilirubin AST ALT Alkaline Phosphatase Total Protein Albumin Lipase Stool Occult Blood POSITIVE Stool for White Cells 08/18/17 08/18/17 08/18/17 11:16 17:15 23:22 Troponin I 0.143 0.152 0.131 NT-Pro-B Natriuret Pep 08/19/17 08/19/17 05:32 05:32 Troponin I 0.107 NT-Pro-B Natriuret Pep 2960 H Impressions: Abdomen/Pelvis CT 08/15/17 17:19 IMPRESSION: 1. Cholelithiasis versus a small calcified gallbladder polyp. 2. Atherosclerosis as described. 3. Diverticulosis coli. 4. Osseous changes as described. Chest X-Ray 08/15/17 21:10 IMPRESSION: Central venous access catheter placed via right IJ approach. Catheter tip at right atrium. No pneumothorax. Abdomen MRI 08/16/17 00:00 IMPRESSION: MILD GALLBLADDER WALL THICKENING WITH PERICHOLECYSTIC FLUID CONSISTENT WITH ACUTE CHOLECYSTITIS. TRACE PERIHEPATIC FLUID. THE COMMON BILE DUCT IS MILDLY DILATED. NO DEFINITE DUCTAL STONES VISUALIZED. CANNOT ENTIRELY EXCLUDE POSSIBLY OF A TINY STONE AT THE AMPULLA. NO OTHER SIGNIFICANT FINDINGS OTHER THAN SMALL PLEURAL EFFUSIONS. Abdomen Ultrasound 08/16/17 00:00 IMPRESSION: Cholelithiasis. Gallbladder polyps. Cholecystitis. Assessment & Plan - Diagnosis (1) Acute cholecystitis due to biliary calculus Is this a current diagnosis for this admission?: Yes Plan: Acute cholecystitis appears to be resolving. There is no however still minimal elevation of LFTs and lipase. Since clinically she looks improve I would start her on clear liquid diet and progress to low-fat diet. 3. She will need to have a good medical and cardiology clearance because she will likely need her gallbladder removed prior to recurrence of biliary pancreatitis. - Time Time Spent with patient: 15-24 minutes - Plan Summary Plan Summary: #1 may start clear liquids 2. Go ahead with echocardiography and cardiology clearance. #3 her acute cholecystitis appears to be resolving and once cleared medically can be seen at the surgical clinic to be scheduled for laparoscopic cholecystectomy
[2017-08-19] MEDS ORDERED: RIFAXIMIN 200 MG TABLET PO SCH (22:00)
[2017-08-19] MEDS: RIFAXIMIN 200 MG TABLET PO SCH (23:37)
[2017-08-20] MEDS: HYDRALAZINE HCL INJ/PF 20 MG/1 ML SDV IV PRN (02:20)
[2017-08-20] MEDS: POTASSI CL 20 MEQ/D5-1/2NS 1L 1,000 ML IV PRN (04:09)
[2017-08-20] MEDS: HEPARIN SOD (PORCINE) 5,000 UNIT/ML 1 ML SYRINGE SUBCUT SCH ×3 (05:43→23:43)
[2017-08-20] MEDS: RIFAXIMIN 200 MG TABLET PO SCH ×3 (05:43→23:43)
[2017-08-20] MEDS ORDERED: FUROSEMIDE INJ/PF 40 MG/4 ML SDV IV SCH (06:00)
[2017-08-20 08:22] LABS: ALANINE AMINOTRANSFERASE 85 U/L (9-52); ALBUMIN 3.2 g/dL (3.5-5.0); ALKALINE PHOSPHATASE 187 U/L (38-126); ANION GAP 14 (5-19); ASPARTATE AMINO TRANSFERASE 43 U/L (14-36); BILIRUBIN,DIRECT 0.5 mg/dL (0.0-0.4); BILIRUBIN,TOTAL 0.8 mg/dL (0.2-1.3); BLOOD UREA NITROGEN 14 mg/dL (7-20); CALCIUM 8.7 mg/dL (8.4-10.2); CARBON DIOXIDE 24 mmol/L (22-30); CHLORIDE 100 mmol/L (98-107); CREATININE RESULT 0.93 mg/dL (0.52-1.25); GLUCOSE 277 mg/dL (75-110); LIPASE 405.7 U/L (23-300); POTASSIUM 3.7 mmol/L (3.6-5.0); SODIUM 137.7 mmol/L (137-145); TOTAL PROTEIN 5.9 g/dL (6.3-8.2)
[2017-08-20] MEDS: LISINOPRIL 10 MG TABLET PO SCH ×2 (09:50→23:43)
[2017-08-20] MEDS: INSULIN GLARGINE,HUM.REC.ANLOG 300 UNIT/3 ML INSULN.PEN SUBCUT SCH (09:50)
[2017-08-20] MEDS: METOPROLOL SUCCINATE 50 MG TAB.SR.24H PO SCH (09:51)
[2017-08-20] MEDS: LEVOFLOXACIN 500 MG/D5W RTU 500 MG/100 ML RTUPB IV SCH (09:51)
--- NOTE | 2017-08-20 10:09 | PDOC PROGRESS REPORT ---
Subjective Subjective:: Patient states she feels about the same, not quite right. SHe denies [place] abdominal pain. No nausea vomiting. Physical Exam Vital Signs: Temp Pulse Resp BP Pulse Ox 98.9 F 91 18 159/73 H 96 08/20/17 07:41 08/20/17 07:41 08/20/17 07:41 08/20/17 07:41 08/20/17 07:41 Intake & Output 08/19/17 08/20/17 08/21/17 06:59 06:59 06:59 Intake Total 2382 Balance 2382 Weight 99.5 kg General appearance: PRESENT: no acute distress GI/Abdominal exam: PRESENT: other - Soft, not distended. Tender in the right upper quadrant. Results Laboratory Results: 08/20/17 07:25 08/20/17 07:25 08/20/17 08/20/17 07:25 07:25 WBC Cancelled RBC Cancelled Hgb Cancelled Hct Cancelled MCV Cancelled MCH Cancelled MCHC Cancelled RDW Cancelled Plt Count Cancelled Seg Neutrophils % Cancelled Lymphocytes % Cancelled Monocytes % Cancelled Eosinophils % Cancelled Basophils % Cancelled Absolute Neutrophils Cancelled Absolute Lymphocytes Cancelled Absolute Monocytes Cancelled Absolute Eosinophils Cancelled Absolute Basophils Cancelled Sodium 137.7 Potassium 3.7 Chloride 100 Carbon Dioxide 24 Anion Gap 14 BUN 14 Creatinine 0.93 Est GFR ( Amer) > 60 Est GFR (Non-Af Amer) 58 L Glucose 277 H Calcium 8.7 Total Bilirubin 0.8 AST 43 H ALT 85 H Alkaline Phosphatase 187 H Total Protein 5.9 L Albumin 3.2 L Lipase 405.7 H 08/18/17 08/18/17 08/18/17 11:16 17:15 23:22 Troponin I 0.143 0.152 0.131 NT-Pro-B Natriuret Pep 08/19/17 08/19/17 05:32 05:32 Troponin I 0.107 NT-Pro-B Natriuret Pep 2960 H Impressions: Abdomen/Pelvis CT 08/15/17 17:19 IMPRESSION: 1. Cholelithiasis versus a small calcified gallbladder polyp. 2. Atherosclerosis as described. 3. Diverticulosis coli. 4. Osseous changes as described. Chest X-Ray 08/15/17 21:10 IMPRESSION: Central venous access catheter placed via right IJ approach. Catheter tip at right atrium. No pneumothorax. Abdomen MRI 08/16/17 00:00 IMPRESSION: MILD GALLBLADDER WALL THICKENING WITH PERICHOLECYSTIC FLUID CONSISTENT WITH ACUTE CHOLECYSTITIS. TRACE PERIHEPATIC FLUID. THE COMMON BILE DUCT IS MILDLY DILATED. NO DEFINITE DUCTAL STONES VISUALIZED. CANNOT ENTIRELY EXCLUDE POSSIBLY OF A TINY STONE AT THE AMPULLA. NO OTHER SIGNIFICANT FINDINGS OTHER THAN SMALL PLEURAL EFFUSIONS. Abdomen Ultrasound 08/16/17 00:00 IMPRESSION: Cholelithiasis. Gallbladder polyps. Cholecystitis. Assessment & Plan - Diagnosis (1) Acute cholecystitis due to biliary calculus Is this a current diagnosis for this admission?: Yes Plan: This is hospital day 5 for the patient presented with septic shock, now chemically stable remaining on intravenous antibiotics. She is kept n.p.o. in anticipation of a laparoscopic cholecystectomy. Her laboratory profile has improved. Plan: 1. I spoke with Dr. Godinez, warranty manager, who will see patient in consultation. 2. We will obtain a echocardiogram this morning. 3. We will communicate with next of kin, healthcare power of immigration attorney before proceeding with interval surgery - Time Time Spent with patient: 15-24 minutes Critical Time spent with patient: Less than 15 minutes
--- NOTE | 2017-08-20 11:42 | XCELERA REPORT ---
[address] [address] Transthoracic Echocardiogram Report Name: ROHIT BERGMAN Age: 82 yrs Gender: Female : 1935 Patient Status: Inpatient Patient Location: [address] [place], [place] [address] Study Date: 08/20/2017 08:58 AM Height: 64 in Weight: 219 lb BSA: 2.0 m2 Procedure: A two-dimensional transthoracic echocardiogram with color flow and Doppler was performed. Study Quality: Technically suboptimal. The study was technically difficult with many images being suboptimal in quality. Reason For Study: NSTEMI / CHF / Preop cardiac Risk Assessment History: NSTEMI / CHF / Preop cardiac Risk Assessment. Ordering Physician: HAZEL HERRERA Performed By: Latrice Anton Interpretation Summary The left ventricle is normal in size. There is mild concentric left ventricular hypertrophy. LV EF is 70% Left ventricular systolic function is normal. Doppler measurements suggest impaired left ventricular relaxation, which is associated with grade I/IV or mild diastolic dysfunction The left ventricular wall motion is normal. There is no thrombus. The left atrial size is normal. There is no evidence of mitral valve prolapse. There is no mitral valve stenosis. There is a trace amount of mitral regurgitation There is mild to moderate aortic stenosis There is a peak gradient of 39 mm of Hg. There is no LVOT obstruction. No aortic regurgitation is present. There is no tricuspid stenosis. No tricuspid regurgitation. Unable to calculate RVSP due to insufficient TR jet. There is no pulmonic valvular stenosis. There is no pulmonic valvular regurgitation. There is no pericardial effusion. MMode/2D Measurements & Calculations RVDd: 2.3 cm LVIDd: 3.2 cm FS: 58.1 % Ao root diam: 2.2 cm IVSd: 1.3 cm LVIDs: 1.3 cm EDV(Teich): 39.5 ml LVPWd: 1.3 cm ESV(Teich): 4.3 ml Ao root area: 3.9 cm2 EF(Teich): 89.1 % LA dimension: 2.9 cm LVOT diam: 2.0 cm LVOT area: 3.1 cm2 Doppler Measurements & Calculations MV E max juan: MV P1/2t max juan: Ao V2 max: LV V1 max P.5 cm/sec 78.0 cm/sec 310.2 cm/sec 6.3 mmHg MV A max juan: MV P1/2t: 54.3 msec Ao max PG: LV V1 mean P.3 cm/sec MVA(P1/2t): 4.1 cm2 38.5 mmHg 3.3 mmHg MV E/A: 0.62 MV dec slope: Ao V2 mean: LV V1 max: 420.5 cm/sec2 230.4 cm/sec 125.9 cm/sec Ao mean PG: LV V1 mean: 23.4 mmHg 82.1 cm/sec Ao V2 VTI: LV V1 VTI: 65.7 cm 26.6 cm KARISSA(I,D): 1.3 cm2 KARISSA(V,D): 1.3 cm2 SV(LVOT): 82.9 ml PA V2 max: 96.3 cm/sec PA max P.7 mmHg Left Ventricle The left ventricle is normal in size. There is mild concentric left ventricular hypertrophy. LV EF is 70%. Left ventricular systolic function is normal. Doppler measurements suggest impaired left ventricular relaxation, which is associated with grade I/IV or mild diastolic dysfunction. The left ventricular wall motion is normal. There is no thrombus. There is no ventricular septal defect visualized. Right Ventricle The right ventricle is grossly normal size. Atria The right atrium is normal. The left atrial size is normal. The interatrial septum is intact with no evidence for an atrial septal defect. Mitral Valve There is no evidence of mitral valve prolapse. There is no vegetation seen on the mitral valve. There is no mitral valve stenosis. There is a trace amount of mitral regurgitation. Aortic Valve There is no aortic valvular vegetation. There is mild to moderate aortic stenosis. There is a peak gradient of 39 mm of Hg. There is no LVOT obstruction. No aortic regurgitation is present. Tricuspid Valve There is no tricuspid stenosis. No tricuspid regurgitation. Unable to calculate RVSP due to insufficient TR jet. Pulmonic Valve There is no pulmonic valvular stenosis. There is no pulmonic valvular regurgitation. Great Vessels The aortic root is normal size. Effusions There is no pericardial effusion. : HAZEL HERRERA > Anila Godinez
[2017-08-20 11:47] LABS: HEMATOCRIT 40.3 % (36.0-47.0); HGB HCT DIFFERENCE -0.1; MEAN CORPUSCULAR HEMOGLOBIN 28.8 pg (27.0-33.4); MEAN CORPUSCULAR HGB CONC 33.3 g/dL (32.0-36.0); MEAN CORPUSCULAR VOLUME 86 fl (80-97); RED BLOOD COUNT 4.66 10^6/uL (3.72-5.28); RED CELL DISTRIBUTION WIDTH 13.8 % (11.5-14.0)
--- NOTE | 2017-08-20 11:49 | PDOC PROGRESS REPORT ---
Subjective Progress Note for:: 08/20/17 Subjective:: Patient interviewed and examined. Formal consult to follow. Diagnosis: 1 acute cholecystitis/cholelithiasis. For surgery. 2. Elevated troponin I no evidence of non-ST elevation MN. Most likely secondary to the patient's sepsis. 3. [id number] aortic stenosis. 4. Hypertension. 5. Diabetes mellitus. 6 mild dementia. X The patient will be at moderate risk for the surgery in view of aortic stenosis. Postoperatively would watch the patient's heart rhythm on the telemetry, get serial EKGs and enzymes. Discussed with the patient's daughter she is aware of the risks of MN arrhythmias and congestive heart failure. We will discuss with Dr. Richards. Physical Exam Vital Signs: Temp Pulse Resp BP Pulse Ox 98.9 F 91 18 159/73 H 96 08/20/17 07:41 08/20/17 07:41 08/20/17 07:41 08/20/17 07:41 08/20/17 07:41 Intake & Output 08/19/17 08/20/17 08/21/17 06:59 06:59 06:59 Intake Total 2382 Balance 2382 Weight 99.5 kg Results Laboratory Results: 08/20/17 07:25 08/20/17 08/20/17 07:25 07:25 WBC Cancelled RBC Cancelled Hgb Cancelled Hct Cancelled MCV Cancelled MCH Cancelled MCHC Cancelled RDW Cancelled Plt Count Cancelled Seg Neutrophils % Cancelled Lymphocytes % Cancelled Monocytes % Cancelled Eosinophils % Cancelled Basophils % Cancelled Absolute Neutrophils Cancelled Absolute Lymphocytes Cancelled Absolute Monocytes Cancelled Absolute Eosinophils Cancelled Absolute Basophils Cancelled Sodium 137.7 Potassium 3.7 Chloride 100 Carbon Dioxide 24 Anion Gap 14 BUN 14 Creatinine 0.93 Est GFR ( Amer) > 60 Est GFR (Non-Af Amer) 58 L Glucose 277 H Calcium 8.7 Total Bilirubin 0.8 AST 43 H ALT 85 H Alkaline Phosphatase 187 H Total Protein 5.9 L Albumin 3.2 L Lipase 405.7 H 08/18/17 08/18/17 08/18/17 11:16 17:15 23:22 Troponin I 0.143 0.152 0.131 NT-Pro-B Natriuret Pep 08/19/17 08/19/17 05:32 05:32 Troponin I 0.107 NT-Pro-B Natriuret Pep 2960 H Impressions: Abdomen/Pelvis CT 08/15/17 17:19 IMPRESSION: 1. Cholelithiasis versus a small calcified gallbladder polyp. 2. Atherosclerosis as described. 3. Diverticulosis coli. 4. Osseous changes as described. Chest X-Ray 08/15/17 21:10 IMPRESSION: Central venous access catheter placed via right IJ approach. Catheter tip at right atrium. No pneumothorax. Abdomen MRI 08/16/17 00:00 IMPRESSION: MILD GALLBLADDER WALL THICKENING WITH PERICHOLECYSTIC FLUID CONSISTENT WITH ACUTE CHOLECYSTITIS. TRACE PERIHEPATIC FLUID. THE COMMON BILE DUCT IS MILDLY DILATED. NO DEFINITE DUCTAL STONES VISUALIZED. CANNOT ENTIRELY EXCLUDE POSSIBLY OF A TINY STONE AT THE AMPULLA. NO OTHER SIGNIFICANT FINDINGS OTHER THAN SMALL PLEURAL EFFUSIONS. Abdomen Ultrasound 08/16/17 00:00 IMPRESSION: Cholelithiasis. Gallbladder polyps. Cholecystitis.
[2017-08-20 12:18] LABS: BASOPHILS % (MANUAL) 0 % (0-2); EOSINOPHILS % (MANUAL) 2 % (0-6); LYMPHOCYTES % (MANUAL) 12 % (13-45); TOTAL CELLS COUNTED 100
[2017-08-20 12:20] LABS: POLYCHROMASIA SLIGHT
[2017-08-20 12:21] LABS: HEMOGLOBIN 13.4 g/dL (12.0-15.5)
[2017-08-20] MEDS ORDERED: HYDROMORPHONE HCL INJ/PF 2 MG/ML AMPULE ONE (13:06)
[2017-08-20] MEDS ORDERED: BUPIVACAINE HCL 0.25 % INJ/PF (2.5 MG/1 ML) 30 ML VIAL ONE (13:06)
[2017-08-20] MEDS ORDERED: MIDAZOLAM 2 MG/2 ML INJ ONE (13:06)
[2017-08-20] MEDS ORDERED: FENTANYL CITRATE INJ/PF 100 MCG/2 ML AMPUL ONE (13:06)
[2017-08-20] MEDS ORDERED: ONDANSETRON HCL INJ/PF 4 MG/2 ML SDV ONE (13:07)
[2017-08-20] MEDS ORDERED: IBUPROFEN INJ 800 MG/8 ML VIAL IV ONE (13:07)
[2017-08-20] MEDS ORDERED: PROPOFOL INJ 200 MG/20 ML VIAL IV ONE (13:07)
[2017-08-20] MEDS ORDERED: PROMETHAZINE HCL INJ 25 MG/1 ML VIAL IV PRN (14:03)
[2017-08-20] MEDS ORDERED: FENTANYL CITRATE INJ/PF 100 MCG/2 ML AMPUL IV PRN ×3 (14:03)
[2017-08-20] MEDS ORDERED: MEPERIDINE HCL/PF INJ 25 MG/1 ML DISP.SYRIN IV PRN (14:03)
--- NOTE | 2017-08-20 15:47 | OPERATIVE REPORT E ---
Operative Report NAME: ROHIT BERGMAN : 1935 AGE: 82Y DATE OF SURGERY: 08/20/2017 ROOM: 408 PREOPERATIVE DIAGNOSIS: Symptomatic cholelithiasis with cholecystitis. POSTOPERATIVE DIAGNOSIS: Symptomatic cholelithiasis with cholecystitis. PROCEDURE: Laparoscopic cholecystectomy. SURGEON: ROSALBA SALINAS M.D. ANESTHESIA: General. COMPLICATIONS: None. FINDINGS: See below. ESTIMATED BLOOD LOSS: Scant. SUMMARY OF PROCEDURE: The patient was brought from preoperative holding area to the main operating room where general anesthesia was induced. The abdomen was exposed, prepped and draped in a sterile fashion. Instrumentation set up for laparoscopic cholecystectomy. Surgical plan and surgical time out were conducted. Skin was anesthetized for a 4 port laparoscopic procedure. The supraumbilical area was marked, and a small vertically directed incision was made with a 15 blade. Veress needle was inserted in the peritoneal cavity and pneumoperitoneum was established. The needle was removed, and a 5 mm port was inserted and a 5 mm flexible scope was inserted. Visualization of the peritoneal cavity revealed adhesions which in retrospect was the result of the greater omentum stuck to the anterior abdominal wall at the level of the umbilicus. The 5 mm port had gone through the omentum and we were looking at the small bowel viscera towards the patient's back. I was able to insinuate the scope out from underneath the omentum laterally and from here place 3 additional ports, 1 in the subxiphoid and 2 in the subcostal position. I repositioned the scope, reinspected what we had just described which was the initial port coming through the greater omentum. There was no evidence of injury to the transverse colon or small bowel. Thorough examination around the stuck greater omentum confirmed clean passage of the 5 mm port into the peritoneal cavity. We now addressed the acutely inflamed gallbladder which was distended. It was aspirated of approximately 60 mL of bile. Graspers were placed on the fundus and infundibulum and the neck of the gallbladder dissected out. Fortunately the anatomy here was classic. Edema was mild to moderate but the adhesions were minimal. The gastroduodenal fatty tissue was taken off of the infundibulum of the gallbladder under direct visualization using sharp and hook cautery dissection. We now had the infundibulum retracted out laterally, and we were able to open up the triangle of Calot. The node of Calot was swept medially, cystic artery in its usual location, surrounded with the right angle clamp, clipped twice proximally and once distally and divided with scissors. We now had the critical view of safety completely within view. We got on both right and left sides of the view and took photographs and now proceeded to place a clip on the gallbladder side of the cystic duct. I then opened up the cystic duct proper and there was some sludge in the duct and I proceeded to milk out of the duct several small stones using the [place] dissector. The cystic duct was somewhat patulous, so we decided to secure the cystic duct after we had nice egressive yellow bile with a single application of a 0 PDS loop securing self-locking suture. This was deployed and we were very satisfied with the management of the cystic duct at this point. We removed the gallbladder from the liver bed using hook cautery dissection with minimal injury to the liver. The plan of dissection was excellent. The gallbladder was removed from the patient through the supraumbilical port site, all under direct visualization without spillage of bile or stones. The gallbladder was passed off to Pathology. We returned to the peritoneal cavity, checked for bleeding and there was none. We aspirated out any residual irrigant and checked again all of our port sites to make sure there was no bleeding and there was none. We are confident there was no visceral injury. At this point, we felt the operation was complete. Sponge and needle counts were correct. All ports were removed under direct visualization and pneumoperitoneum completely evacuated. Wounds closed with 3-0 Vicryl, Benzoin and Steri-Strips. The patient tolerated the procedure well, extubated and taken to the recovery room in stable condition. DICTATING PHYSICIAN: ROSALBA SALINAS M.D. [id number] PHY#: [id number] ID: [id number] JOB#: [id number] ACCT: [id number] cc:ROSALBA SALINAS M.D. >
--- NOTE | 2017-08-20 17:12 | PDOC PROGRESS REPORT ---
Subjective Progress Note for:: 08/20/17 Subjective:: No complaints. Physical Exam Vital Signs: Temp Pulse Resp BP Pulse Ox 98.2 F 91 15 140/72 H 96 08/20/17 04:00 08/20/17 04:00 08/20/17 04:00 08/20/17 04:00 08/20/17 04:00 Intake & Output 08/19/17 08/20/17 08/21/17 06:59 06:59 06:59 Intake Total 2382 Balance 2382 Weight 99.5 kg General appearance: PRESENT: no acute distress, cooperative, obese Head exam: PRESENT: atraumatic, normocephalic Eye exam: PRESENT: conjunctiva pink, EOMI, PERRLA Mouth exam: PRESENT: moist, neck supple Neck exam: PRESENT: full ROM, tenderness. ABSENT: JVD Respiratory exam: PRESENT: clear to auscultation thiago Cardiovascular exam: PRESENT: RRR. ABSENT: diastolic murmur, systolic murmur Vascular exam: PRESENT: normal capillary refill GI/Abdominal exam: PRESENT: normal bowel sounds, soft. ABSENT: tenderness Neurological exam: PRESENT: alert, oriented to person, oriented to place, oriented to time Psychiatric exam: PRESENT: appropriate affect, normal mood Skin exam: PRESENT: intact, normal color Results Laboratory Results: 08/19/17 05:32 08/19/17 05:32 08/19/17 08/19/17 08:21 08:21 Stool Occult Blood POSITIVE Stool for White Cells NO WBCs SEEN 08/18/17 08/18/17 08/18/17 11:16 17:15 23:22 Troponin I 0.143 0.152 0.131 NT-Pro-B Natriuret Pep 08/19/17 08/19/17 05:32 05:32 Troponin I 0.107 NT-Pro-B Natriuret Pep 2960 H Impressions: Abdomen/Pelvis CT 08/15/17 17:19 IMPRESSION: 1. Cholelithiasis versus a small calcified gallbladder polyp. 2. Atherosclerosis as described. 3. Diverticulosis coli. 4. Osseous changes as described. Chest X-Ray 08/15/17 21:10 IMPRESSION: Central venous access catheter placed via right IJ approach. Catheter tip at right atrium. No pneumothorax. Abdomen MRI 08/16/17 00:00 IMPRESSION: MILD GALLBLADDER WALL THICKENING WITH PERICHOLECYSTIC FLUID CONSISTENT WITH ACUTE CHOLECYSTITIS. TRACE PERIHEPATIC FLUID. THE COMMON BILE DUCT IS MILDLY DILATED. NO DEFINITE DUCTAL STONES VISUALIZED. CANNOT ENTIRELY EXCLUDE POSSIBLY OF A TINY STONE AT THE AMPULLA. NO OTHER SIGNIFICANT FINDINGS OTHER THAN SMALL PLEURAL EFFUSIONS. Abdomen Ultrasound 08/16/17 00:00 IMPRESSION: Cholelithiasis. Gallbladder polyps. Cholecystitis. Assessment & Plan - Diagnosis (1) Acute infectious diarrhea Is this a current diagnosis for this admission?: Yes Plan: Continue rifaximin (2) Acute renal failure Qualifiers: Acute renal failure type: with acute tubular necrosis Qualified Code(s): N17.0 - Acute kidney failure with tubular necrosis Is this a current diagnosis for this admission?: Yes Plan: Resolved (3) Diabetes mellitus type 2 in obese Is this a current diagnosis for this admission?: Yes Plan: Continue present tx. (4) Septic shock Is this a current diagnosis for this admission?: Yes Plan: Resolved and due to urinary tract infection secondary to translocation from gallbladder. (5) UTI (urinary tract infection) Qualifiers: Urinary tract infection type: acute cystitis Hematuria presence: without hematuria Qualified Code(s): N30.00 - Acute cystitis without hematuria Is this a current diagnosis for this admission?: Yes Plan: Continue levaquin (6) Acute cholecystitis due to biliary calculus Is this a current diagnosis for this admission?: Yes Plan: For cholecystectomy today. (7) Gallstone pancreatitis Is this a current diagnosis for this admission?: Yes Plan: For surgery today (8) Bradycardia Is this a current diagnosis for this admission?: Yes Plan: Shortlived while coughing. (9) NSTEMI (non-ST elevated myocardial infarction) Is this a current diagnosis for this admission?: Yes Plan: Likely type 2 in the setting of sepsis and pancreatitis. Cleared for surgery. (10) HTN (hypertension) Is this a current diagnosis for this admission?: Yes Plan: Continue current tx - Time Time Spent with patient: 15-24 minutes Medications reviewed and adjusted accordingly: Yes Anticipated discharge: Home - Inpatient Certification Based on my medical assessment, after consideration of the patient's comorbidities, presenting symptoms, or acuity I expect that the services needed warrant INPATIENT care.: Yes I certify that my determination is in accordance with my understanding of Medicare's requirements for reasonable and necessary INPATIENT services [42 CFR 412.3e].: Yes Medical Necessity: Need for IV Antibiotics, Need for Surgery
[2017-08-20 17:24] LABS: CREATINE KINASE MB 0.53 ng/mL (<4.55); TROPONIN I 0.057 ng/mL
[2017-08-20] MEDS: ONDANSETRON HCL INJ/PF 4 MG/2 ML SDV IV PRN (18:56)
[2017-08-20] MEDS: INSULIN LISPRO 100 UNIT/ML 3 ML VIAL SUBCUT PRN (23:53)
--- NOTE | 2017-08-21 01:17 | CONSULTATION REPORT E ---
Consultation Report NAME: ROHIT BERGMAN : 1935 AGE: 82Y DATE: 08/20/2017 408 A TO: BRIAN ALVAREZ M.D. FROM: JONAS GEORGE M.D. Requesting Physician REASON FOR CONSULTATION: The patient with hypertension, diabetes mellitus and heart murmur and for preoperative cardiac risk assessment for gallbladder surgery. Chart reviewed. Note that the patient was admitted on 08/15/2017 with a UTI with the patient being unable to urinate and was found to be extremely hypotensive and the patient also had diarrhea. Apart from the UTI, there were concerns for C. difficile colitis. At that time, the patient's troponin I was elevated although there was no major EKG changes and the patient had no chest pain. Subsequently, she got better but then developed right upper quadrant pain and was diagnosed as acute cholecystitis with cholelithiasis and is for gallbladder surgery. The patient denies any chest pain or discomfort. There is no shortness of breath. There is no palpitations. There is no syncope or near syncope. There is no leg edema. The patient has no anginal symptoms. There is no TIA or CVA symptoms. The patient has mild dementia, but is able to give a good history and appears to be oriented x3 at present. PAST MEDICAL HISTORY: Positive for hypertension, heart murmur, mild dementia, diabetes mellitus type 2, history of GERD and also history of acute cholecystitis this admission with cholelithiasis. At present, the patient is stable enough for surgery. There is no history of thyroid disease. There is no history of TIA or CVA. There is no history of headaches, migraines or seizures. She has history of diabetes mellitus type 2. There is no history of asthma, COPD or sleep apnea. PAST SURGICAL HISTORY: Positive for hysterectomy. SOCIAL HISTORY: The patient has never smoked. There is no history of EtOH abuse. CODE STATUS: The patient is a FULL CODE. Her daughter is her surrogate healthcare decision maker. FAMILY HISTORY: Positive for malignancy and negative for coronary artery disease, hypertension or diabetes mellitus. ALLERGIES: The patient is allergic to PENICILLIN. REVIEW OF SYSTEMS: CONSTITUTIONAL: The patient this admission has been having fatigue, chills, fever with rigors, weakness and anorexia. She has no headaches or dizziness. EYES: No history of amblyopia or diplopia. No history of amaurosis fugax. EARS: No history of hearing loss. No history of tinnitus. No history of recurrent ear infections. NOSE: No history of nosebleeds. No history of hayfever. No history of nasal polyps. MOUTH: No history of altered taste sensation. No ulcers in the mouth. No bleeding through the gums. THROAT: No redness of the oropharynx. No history of odynophagia or dysphagia. No history of recurrent sore throats. SKIN: No history of pruritus. No history of skin lesions. No history of skin rashes. No history of psoriasis. NECK: There are no signs or symptoms of C-spine arthritis. There is no goiter. LUNGS: No history of asthma or COPD. No history of sleep apnea. No history of sputum production. No history of pulmonary embolism. No history of hemoptysis. No wheezing. CARDIAC: History of hypertension. History of heart murmur. There is no history of congestive heart failure. No history of angina or IL. No history of recent congestive heart failure. The patient states that in the remote past there was congestive heart failure. She denies any exertional chest pain or exertional syncope. There is no palpitations. There is no PND, orthopnea or leg edema. GASTROINTESTINAL: Abdominal pain diagnosed as acute cholecystitis with cholelithiasis. No history of jaundice. No history of fatty food intolerance present. History of anorexia present. RENAL: No history of chronic kidney disease. There are symptoms of multiple UTI. The patient was in septic shock when she first came in due to UTI. No history of hematuria or pyuria. The patient has dysuria and difficulty urinating. CENTRAL NERVOUS SYSTEM: No history of TIA or CVA. No history of headaches, migraines, or seizure. MUSCULOSKELETAL: No history of arthritis or collagen vascular disease. PSYCHIATRIC: No history of anxiety or depression. No history of suicidal ideation. VASCULAR: No history of calf or buttock claudication. No history of DVT. HEMATOLOGICAL: No history of bleeding diathesis. No history of clotting disorders. MEDICATIONS: Include: 1. Tylenol 650 mg p.o. q.4 h. p.r.n. 2. Hypoglycemic precautions with dextrose, glucose 15 g and 30 g, respectively p.o. p.r.n. hypoglycemia. 3. Dextrose 50% 12.5 g IV and 25 g IV p.r.n. hypoglycemia. 4. Fentanyl 100 mcg subcutaneously x1. 5. Glucagon 1 mg IM hypoglycemia. 6. Heparin 5000 units subcutaneously q.8 h. 7. Hydralazine 20 mg IV q.4 h. p.r.n. 8. Ibuprofen 800 mg IV x1. 9. Lantus insulin 25 units subcutaneously daily. 10. Accu-Cheks with sliding scale insulin coverage a.c., t.i.d. and bedtime. 11. Levaquin 500 mg IV piggyback daily. 12. Xopenex 1.25 mg nebulizer treatment q.2 h. p.r.n. 13. Lisinopril 10 mg p.o. q.12 h. 14. Metoprolol succinate, Toprol XL 50 mg p.o. daily. 15. Zofran 4 mg IV q.6 h. p.r.n. 16. Rifaximin 200 mg p.o. q.8 h. p.r.n. PHYSICAL EXAMINATION: GENERAL: The patient is in no major distress. She is moderately obese, but well groomed. VITAL SIGNS: She is afebrile with a temperature of 98.3 degrees Fahrenheit. Pulse is 86 beats per minute. Blood pressure of 142/77. Respirations are 17/min. O2 sats are 97% on room air. HEAD: Atraumatic, normocephalic. EYES: Pupils are equal, round, reactive to light and accommodation. Extraocular movements are normal. There is no conjunctival pallor. EARS: Tympanic membranes are intact. External auditory canals are clear. There are no lesions on the pinna. NOSE: There is no deviated nasal septum. There is no inflammation of the nasal mucous membrane. MOUTH: Mucous membranes of the mouth are moist. Tongue is moist. There are no ulcers. There are no bleeding from the gums. THROAT: There is no redness of the oropharynx. There are no exudates. SKIN: There are no skin rashes or skin lesions. There is no petechiae or ecchymosis. NECK: Supple. Trachea is central. There is no JVD. Carotids are equal. There is no bruit. There is transaortic murmur, both carotids from the aortic area. There is no significant carotid delay. There is no goiter. Trachea is central. LUNGS: Clear to auscultation and percussion. HEART: S1/S2 heard. There is no S3 gallop. There is no S4 gallop. There is a systolic murmur of aortic stenosis present. A2 is well preserved. There is no diastolic murmur. There is systolic murmur in the mitral area. There is no rub. ABDOMEN: Soft. There is mild tenderness of the right upper quadrant without any guarding, rigidity or rebound. There is no hepatosplenomegaly. Bowel sounds are well heard. EXTREMITIES: Femorals are slightly diminished. There are no femoral bruits. Leg pulses are diminished. There is no pedal edema. There is no DVT or cellulitis. There is no calf tenderness. There is no cyanosis or clubbing. CENTRAL NERVOUS SYSTEM: The patient is conscious, awake, alert, oriented x3 with no focal deficit. PSYCHIATRIC: In spite of the diagnosis of dementia, the patient is awake, alert and oriented x2. Judgement and insight seem to be intact. She gives very good history. The patient does not appear to be agitated. DIAGNOSTIC STUDIES: The patient's EKG done on 08/18/2017 is within normal limits. The patient's left ventricle is normal in size. There is mild left concentric left ventricular hypertrophy. LV ejection fraction is 70%. Left ventricular systolic function is normal. Doppler measurements suggest impaired left ventricular relaxation, which is associated with grade 1 x 4 or mild diastolic dysfunction. The left ventricular wall motion is normal. There is no thrombus. The left atrial size is normal. There is no evidence of mitral valve prolapse. There is on mitral valve stenosis. There is trace amount of mitral regurgitation. There is udrl-wr-ndxpzwll aortic stenosis with a peak gradient of 39 mmHg. There is no LVOT obstruction. There is no aortic regurgitation present. There is no tricuspid stenosis. No tricuspid regurgitation. Unable to calculate right ventricular systolic pressure due to insufficient TR jet. There is no pericardial effusion. Abdominal ultrasound done on 08/16/2017 shows cholecystitis with cholelithiasis. The rest of the results have been reviewed. The patient's white count is 14,000, hemoglobin is 13.4, hematocrit is 40.3, platelet count is 293,000. The patient's sodium is 137.7, potassium is 3.7, chloride 100, CO2 is 24. The patient's BUN is 14, creatinine 0.93. GFR is slightly reduced at 58. Glucose is 277. Her total bilirubin is normal at 0.8. Her direct bilirubin is high at 0.5. Her AST is elevated at 43. ALT is elevated at 85. Alkaline phosphatase is 187. Her albumin is 3.2. Her lipase is 405.7 and a total protein is 5.9. Her calcium is 8.7. On 08/18/2017, her troponin was 0.131, which was trending down from 0.143. The echocardiogram has been discussed with the patient. Also I discussed the case with the patient's daughter over the telephone. DICTATING PHYSICIAN: BRIAN ALVAREZ M.D. [id number] PHY#: [id number] ID: [id number] JOB#: [id number] ACCT: [id number] cc:BRIAN ALVAREZ M.D. >
[2017-08-21] MEDS: RIFAXIMIN 200 MG TABLET PO SCH (06:51)
[2017-08-21] MEDS: HEPARIN SOD (PORCINE) 5,000 UNIT/ML 1 ML SYRINGE SUBCUT SCH ×3 (06:51→21:54)
[2017-08-21] MEDS: ACETAMINOPHEN 325 MG TABLET PO PRN (06:51)
--- NOTE | 2017-08-21 07:55 | EKG REPORT ---
SEVERITY:- ABNORMAL ECG - SINUS RHYTHM VENTRICULAR PREMATURE COMPLEX LVH BY VOLTAGE CONSIDER ANTEROSEPTAL INFARCT (V2 LEAD PLACEMENT ERROR). : Confirmed by: Cristhian Ross MD 21-Aug-2017 07:54:50
--- NOTE | 2017-08-21 07:56 | EKG REPORT ---
SEVERITY:- ABNORMAL ECG - SINUS RHYTHM LEFT ATRIAL ABNORMALITY PROBABLE LEFT VENTRICULAR HYPERTROPHY CONSIDER ANTERIOR INFARCT VS LEAD PLACEMENT, CLINICAL CORRELATION NEEDED. : Confirmed by: Cristhian Ross MD 21-Aug-2017 07:55:57
--- NOTE | 2017-08-21 09:27 | CONSULTATION REPORT E ---
Consultation Report NAME: ROHIT BERGMAN : 1935 AGE: 82Y DATE: 08/20/2017 408 A TO: BRIAN ALVAREZ M.D. FROM: JONAS GEORGE M.D. Requesting Physician ADDENDUM: IMPRESSION: 1. Acute cholecystitis/cholelithiasis surgery. 2. Elevated troponin, no evidence of non ST-elevation IL, most likely secondary to the patient's sepsis and hypotension. The patient without any anginal symptoms. 3. Zxsh-xn-zjtonahi aortic stenosis. 4. Hypertension. 5. Diabetes mellitus. 6. Mild dementia. 7. Normal left ventricular systolic function. RECOMMENDATIONS: As mentioned earlier, the patient will be at moderate risk for surgery in view of the aortic stenosis and the patient's age. Postoperatively, we would watch the patient's heart rhythm on the telemetry and get serial EKGs and enzymes. This has been discussed with the patient's daughter over the phone and she is aware of the risks of IL, congestive heart failure and arrhythmias. Also discussed with Dr. Richards, the surgicalist. Medications have been reviewed. Note highly complex medical decision-making involved in this case. Note that the patient was seen at 11:30 a.m. on 08/20/2017. Note 45 minutes was spent on the patient including discussion of the patient's echocardiogram, the patient's daughter and also discussions with the patient. DICTATING PHYSICIAN: BRIAN ALVAREZ M.D. [id number] PHY#: [id number] ID: [id number] JOB#: [id number] ACCT: [id number] cc:BRIAN ALVAREZ M.D. >
[2017-08-21] MEDS: METOPROLOL SUCCINATE 50 MG TAB.SR.24H PO SCH (10:14)
[2017-08-21] MEDS: FLUCONAZOLE 100 MG TABLET PO SCH (10:14)
[2017-08-21] MEDS: LEVOFLOXACIN 500 MG TABLET PO SCH (10:14)
[2017-08-21] MEDS: LISINOPRIL 10 MG TABLET PO SCH (10:15)
[2017-08-21] MEDS: LACTOBACILLUS ACIDOPHILUS 250 MG TAB PO SCH ×2 (10:15→18:29)
[2017-08-21] MEDS: INSULIN GLARGINE,HUM.REC.ANLOG 300 UNIT/3 ML INSULN.PEN SUBCUT SCH (10:16)
[2017-08-21] MEDS: INSULIN LISPRO 100 UNIT/ML 3 ML VIAL SUBCUT PRN ×3 (10:16→21:57)
--- NOTE | 2017-08-21 10:24 | PDOC PROGRESS REPORT ---
Subjective Progress Note for:: 08/21/17 Subjective:: Complaints this morning. No nausea or vomiting. She is tolerating liquids Physical Exam Vital Signs: Temp Pulse Resp BP Pulse Ox 97.5 F 88 16 108/66 96 08/21/17 08:00 08/21/17 08:00 08/21/17 08:00 08/21/17 08:00 08/21/17 08:00 Intake & Output 08/20/17 08/21/17 08/22/17 06:59 06:59 06:59 Intake Total 2382 2650 Output Total 410 Balance 2382 2240 Weight 99.5 kg General appearance: PRESENT: no acute distress, well-developed, well-nourished Head exam: PRESENT: atraumatic, normocephalic Eye exam: PRESENT: EOMI, PERRLA. ABSENT: scleral icterus Ear exam: PRESENT: normal external ear exam Mouth exam: PRESENT: moist Neck exam: ABSENT: carotid bruit, JVD, lymphadenopathy, thyromegaly Respiratory exam: PRESENT: clear to auscultation thiago. ABSENT: rales, rhonchi, wheezes Cardiovascular exam: PRESENT: RRR. ABSENT: diastolic murmur, rubs, systolic murmur GI/Abdominal exam: PRESENT: normal bowel sounds, soft. ABSENT: distended, guarding, mass, organolmegaly, rebound, tenderness Rectal exam: PRESENT: deferred Extremities exam: ABSENT: calf tenderness, clubbing, pedal edema Neurological exam: PRESENT: alert, awake, oriented to person, oriented to place , oriented to time. ABSENT: motor sensory deficit Psychiatric exam: PRESENT: appropriate affect, normal mood. ABSENT: homicidal ideation, suicidal ideation Skin exam: PRESENT: dry, intact, warm. ABSENT: cyanosis, rash Results Laboratory Results: 08/20/17 10:04 08/20/17 07:25 08/20/17 10:04 WBC 14.0 H RBC 4.66 Hgb 13.4 D Hct 40.3 MCV 86 MCH 28.8 MCHC 33.3 RDW 13.8 Plt Count 293 Seg Neutrophils % Not Reportable Lymphocytes % Not Reportable Monocytes % Not Reportable Eosinophils % Not Reportable Basophils % Not Reportable Absolute Neutrophils Not Reportable Absolute Lymphocytes Not Reportable Absolute Monocytes Not Reportable Absolute Eosinophils Not Reportable Absolute Basophils Not Reportable 08/18/17 08/18/1708/18/17 11:16 17:15 23:22 CK-MB (CK-2) Troponin I 0.143 0.152 0.131 NT-Pro-B Natriuret Pep 08/19/17 08/19/17 08/20/17 05:32 05:32 16:45 CK-MB (CK-2) 0.53 Troponin I 0.107 0.057 NT-Pro-B Natriuret Pep 2960 H 08/21/17 04:47 CK-MB (CK-2) Troponin I 0.042 NT-Pro-B Natriuret Pep Impressions: Abdomen/Pelvis CT 08/15/17 17:19 IMPRESSION: 1. Cholelithiasis versus a small calcified gallbladder polyp. 2. Atherosclerosis as described. 3. Diverticulosis coli. 4. Osseous changes as described. Chest X-Ray 08/15/17 21:10 IMPRESSION: Central venous access catheter placed via right IJ approach. Catheter tip at right atrium. No pneumothorax. Abdomen MRI 08/16/17 00:00 IMPRESSION: MILD GALLBLADDER WALL THICKENING WITH PERICHOLECYSTIC FLUID CONSISTENT WITH ACUTE CHOLECYSTITIS. TRACE PERIHEPATIC FLUID. THE COMMON BILE DUCT IS MILDLY DILATED. NO DEFINITE DUCTAL STONES VISUALIZED. CANNOT ENTIRELY EXCLUDE POSSIBLY OF A TINY STONE AT THE AMPULLA. NO OTHER SIGNIFICANT FINDINGS OTHER THAN SMALL PLEURAL EFFUSIONS. Abdomen Ultrasound 08/16/17 00:00 IMPRESSION: Cholelithiasis. Gallbladder polyps. Cholecystitis. Assessment & Plan - Diagnosis (1) Acute cholecystitis due to biliary calculus Is this a current diagnosis for this admission?: Yes Plan: Postoperative day 1 status post laparoscopic cholecystectomy. She is doing well. She is tolerating a liquid diet. Advance to regular diet today. We will sign off. Please reconsult if we may be of assistance. She can follow-up in the [place] [facility] in 1 week postop. She may shower in 24 hours. No lifting greater than 20-30 pounds for 4 weeks. - Time Time Spent with patient: Less than 15 minutes
[2017-08-21] MEDS ORDERED: SUCCINYLCHOLINE CHLORIDE INJ 200 MG/10 ML VIAL ONE (15:39)
[2017-08-21] MEDS ORDERED: GLYCOPYRROLATE INJ 0.4 MG/2 ML VIAL ONE (15:39)
[2017-08-21] MEDS ORDERED: NEOSTIGMINE METHYLSULFATE 10 MG/10 ML VIAL ONE (15:39)
[2017-08-21] MEDS ORDERED: ROCURONIUM BROMIDE INJ 50 MG/5 ML VIAL IV ONE (15:39)
--- NOTE | 2017-08-21 17:13 | PDOC PROGRESS REPORT ---
Subjective Progress Note for:: 08/21/17 Subjective:: Complains of pain in the area where had surgery. ROS All organ systems reviewed and negative except as in subjective. All laboratories and significant diagnostics had been reviewed Physical Exam Vital Signs: Temp Pulse Resp BP Pulse Ox 97.7 F 65 12 115/49 L 96 08/21/17 16:00 08/21/17 16:00 08/21/17 16:00 08/21/17 16:00 08/21/17 16:00 Intake & Output 08/20/17 08/21/17 08/22/17 06:59 06:59 06:59 Intake Total 2382 2650 420 Output Total 410 Balance 2382 2240 420 Weight 99.5 kg General appearance: PRESENT: no acute distress, cooperative, obese Head exam: PRESENT: atraumatic, normocephalic Eye exam: PRESENT: EOMI, PERRLA Ear exam: PRESENT: normal external ear exam Mouth exam: PRESENT: moist, neck supple Neck exam: PRESENT: full ROM. ABSENT: JVD, tenderness Respiratory exam: PRESENT: clear to auscultation thiago Cardiovascular exam: PRESENT: RRR, systolic murmur. ABSENT: diastolic murmur Vascular exam: PRESENT: normal capillary refill GI/Abdominal exam: PRESENT: normal bowel sounds, soft, tenderness Extremities exam: PRESENT: full ROM. ABSENT: joint swelling, pedal edema Neurological exam: PRESENT: alert, oriented to person, oriented to place, oriented to time Psychiatric exam: PRESENT: appropriate affect Results Laboratory Results: 08/20/17 10:04 08/20/17 07:25 08/18/17 08/18/17 08/18/17 11:16 17:15 23:22 CK-MB (CK-2) Troponin I 0.143 0.152 0.131 NT-Pro-B Natriuret Pep 08/19/17 08/19/17 08/20/17 05:32 05:32 16:45 CK-MB (CK-2) 0.53 Troponin I 0.107 0.057 NT-Pro-B Natriuret Pep 2960 H 08/21/17 04:47 CK-MB (CK-2) Troponin I 0.042 NT-Pro-B Natriuret Pep Impressions: Abdomen/Pelvis CT 08/15/17 17:19 IMPRESSION: 1. Cholelithiasis versus a small calcified gallbladder polyp. 2. Atherosclerosis as described. 3. Diverticulosis coli. 4. Osseous changes as described. Chest X-Ray 08/15/17 21:10 IMPRESSION: Central venous access catheter placed via right IJ approach. Catheter tip at right atrium. No pneumothorax. Abdomen MRI 08/16/17 00:00 IMPRESSION: MILD GALLBLADDER WALL THICKENING WITH PERICHOLECYSTIC FLUID CONSISTENT WITH ACUTE CHOLECYSTITIS. TRACE PERIHEPATIC FLUID. THE COMMON BILE DUCT IS MILDLY DILATED. NO DEFINITE DUCTAL STONES VISUALIZED. CANNOT ENTIRELY EXCLUDE POSSIBLY OF A TINY STONE AT THE AMPULLA. NO OTHER SIGNIFICANT FINDINGS OTHER THAN SMALL PLEURAL EFFUSIONS. Abdomen Ultrasound 08/16/17 00:00 IMPRESSION: Cholelithiasis. Gallbladder polyps. Cholecystitis. Assessment & Plan - Diagnosis (1) Acute infectious diarrhea Is this a current diagnosis for this admission?: Yes Plan: Stool culture postive for Cora. D/C rifaximin and order diflucan and bacid (2) Acute renal failure Qualifiers: Acute renal failure type: with acute tubular necrosis Qualified Code(s): N17.0 - Acute kidney failure with tubular necrosis Is this a current diagnosis for this admission?: Yes Plan: Resolved (3) Diabetes mellitus type 2 in obese Is this a current diagnosis for this admission?: Yes Plan: Continue present tx. (4) Septic shock Is this a current diagnosis for this admission?: Yes Plan: Resolved and due to urinary tract infection secondary to translocation from gallbladder. (5) UTI (urinary tract infection) Qualifiers: Urinary tract infection type: acute cystitis Hematuria presence: without hematuria Qualified Code(s): N30.00 - Acute cystitis without hematuria Is this a current diagnosis for this admission?: Yes Plan: Continue levaquin (6) Acute cholecystitis due to biliary calculus Is this a current diagnosis for this admission?: Yes Plan: Had surgery on 08/21. Advance diet. (7) Gallstone pancreatitis Is this a current diagnosis for this admission?: Yes Plan: Tolerated cholecystectomy well. (8) Bradycardia Is this a current diagnosis for this admission?: Yes Plan: Shortlived while coughing. (9) NSTEMI (non-ST elevated myocardial infarction) Is this a current diagnosis for this admission?: Yes Plan: Likely type 2 in the setting of sepsis and pancreatitis. (10) HTN (hypertension) Is this a current diagnosis for this admission?: Yes Plan: Continue current tx (11) Cora albicans infection Is this a current diagnosis for this admission?: Yes Plan: Start diflucan and bacid - Time Time Spent with patient: 15-24 minutes Medications reviewed and adjusted accordingly: Yes Anticipated discharge: Home - Inpatient Certification Based on my medical assessment, after consideration of the patient's comorbidities, presenting symptoms, or acuity I expect that the services needed warrant INPATIENT care.: Yes Medical Necessity: Need Close Monitoring Due to Risk of Patient Decompensation
[2017-08-22] MEDS: HEPARIN SOD (PORCINE) 5,000 UNIT/ML 1 ML SYRINGE SUBCUT SCH (06:20)
[2017-08-22] MEDS: LISINOPRIL 10 MG TABLET PO SCH (09:56)
[2017-08-22] MEDS: FLUCONAZOLE 100 MG TABLET PO SCH (09:56)
[2017-08-22] MEDS: METOPROLOL SUCCINATE 50 MG TAB.SR.24H PO SCH (09:57)
[2017-08-22] MEDS: LACTOBACILLUS ACIDOPHILUS 250 MG TAB PO SCH (09:57)
[2017-08-22] MEDS: INSULIN GLARGINE,HUM.REC.ANLOG 300 UNIT/3 ML INSULN.PEN SUBCUT SCH (09:57)
[2017-08-22] MEDS: LEVOFLOXACIN 500 MG TABLET PO SCH (09:57)
[2017-08-22 10:23] VITALS: BP 182/88
--- NOTE | 2017-08-22 10:38 | PDOC PROGRESS REPORT ---
Subjective Progress Note for:: 08/21/17 Subjective:: Post OP day 1. Patient claims to be doing fine without any significant complaints except for some discomfort in the right upper quadrant and mid quadrant of the abdomen. Telemetry strips reviewed showed patient maintaining sinus rhythm. EKG reviewed showed no postop changes. Physical Exam Vital Signs: Temp Pulse Resp BP Pulse Ox 98.5 F 81 18 182/88 H 95 08/22/17 10:19 08/22/17 10:19 08/22/17 10:19 08/22/17 10:19 08/22/17 10:19 Intake & Output 08/21/17 08/22/17 08/23/17 06:59 06:59 06:59 Intake Total 2650 420 Output Total 410 Balance 2240 420 Weight 99.6 kg General appearance: PRESENT: no acute distress, well-developed, well-nourished Head exam: PRESENT: atraumatic, normocephalic Eye exam: PRESENT: conjunctiva pink, EOMI, PERRLA. ABSENT: scleral icterus Ear exam: PRESENT: normal external ear exam Mouth exam: PRESENT: moist, tongue midline Neck exam: ABSENT: carotid bruit, JVD, lymphadenopathy, thyromegaly Respiratory exam: PRESENT: clear to auscultation thiago. ABSENT: rales, rhonchi, wheezes Cardiovascular exam: PRESENT: RRR, +S1 - n, +S2 - n, systolic murmur - 2/6 aortic ejection. ABSENT: diastolic murmur, rubs Pulses: PRESENT: normal dorsalis pedis pul Vascular exam: PRESENT: normal capillary refill GI/Abdominal exam: PRESENT: normal bowel sounds, soft, tenderness - RUQ and epigastric tenderness. ABSENT: distended, guarding, mass, organolmegaly, rebound Rectal exam: PRESENT: deferred Extremities exam: PRESENT: full ROM. ABSENT: calf tenderness, clubbing, pedal edema Neurological exam: PRESENT: alert, awake, oriented to person, oriented to place , oriented to time, oriented to situation, CN II-XII grossly intact. ABSENT: motor sensory deficit Psychiatric exam: PRESENT: appropriate affect, normal mood. ABSENT: homicidal ideation, suicidal ideation Skin exam: PRESENT: dry, intact, warm. ABSENT: cyanosis, rash Results Laboratory Results: 08/20/17 10:04 08/20/17 07:25 08/19/17 08:21 Stool - Stool - Final 08/19/17 08:21 Stool - Stool Stool Culture - Final C.albicans/C.dubliniensis 08/18/17 08/18/17 08/18/17 11:16 17:15 23:22 CK-MB (CK-2) Troponin I 0.143 0.152 0.131 NT-Pro-B Natriuret Pep 08/19/17 08/19/17 08/20/17 05:32 05:32 16:45 CK-MB (CK-2) 0.53 Troponin I 0.107 0.057 NT-Pro-B Natriuret Pep 2960 H 08/21/17 04:47 CK-MB (CK-2) Troponin I 0.042 NT-Pro-B Natriuret Pep EKG Comments: NSR, No acute ST-T changes Impressions: Abdomen/Pelvis CT 08/15/17 17:19 IMPRESSION: 1. Cholelithiasis versus a small calcified gallbladder polyp. 2. Atherosclerosis as described. 3. Diverticulosis coli. 4. Osseous changes as described. Chest X-Ray 08/15/17 21:10 IMPRESSION: Central venous access catheter placed via right IJ approach. Catheter tip at right atrium. No pneumothorax. Abdomen MRI 08/16/17 00:00 IMPRESSION: MILD GALLBLADDER WALL THICKENING WITH PERICHOLECYSTIC FLUID CONSISTENT WITH ACUTE CHOLECYSTITIS. TRACE PERIHEPATIC FLUID. THE COMMON BILE DUCT IS MILDLY DILATED. NO DEFINITE DUCTAL STONES VISUALIZED. CANNOT ENTIRELY EXCLUDE POSSIBLY OF A TINY STONE AT THE AMPULLA. NO OTHER SIGNIFICANT FINDINGS OTHER THAN SMALL PLEURAL EFFUSIONS. Abdomen Ultrasound 08/16/17 00:00 IMPRESSION: Cholelithiasis. Gallbladder polyps. Cholecystitis. Assessment & Plan - Diagnosis (1) Status post cholecystectomy Is this a current diagnosis for this admission?: Yes (2) Diabetes mellitus type 2 in obese Is this a current diagnosis for this admission?: Yes (3) GERD (gastroesophageal reflux disease) Qualifiers: Esophagitis presence: esophagitis presence not specified Qualified Code(s) : K21.9 - Gastro-esophageal reflux disease without esophagitis Is this a current diagnosis for this admission?: Yes (4) HTN (hypertension) Qualifiers: Hypertension type: essential hypertension Qualified Code(s): I10 - Essential (primary) hypertension Is this a current diagnosis for this admission?: Yes (5) NSTEMI (non-ST elevated myocardial infarction) Is this a current diagnosis for this admission?: Yes (6) Sepsis Qualifiers: Sepsis type: sepsis due to unspecified organism Qualified Code(s): A41.9 - Sepsis, unspecified organism Is this a current diagnosis for this admission?: Yes (7) Aortic stenosis Qualifiers: Cardiac valve disease etiology: nonrheumatic Qualified Code(s): I35.0 - Nonrheumatic aortic (valve) stenosis Is this a current diagnosis for this admission?: Yes - Notes Notes: Patient seems to be doing well without any significant symptoms. Her diabetes seems to be relatively well controlled. Reflux symptoms are controlled. Hypertension shows blood pressure being adequately controlled. Patient did have enzyme elevation in the non-STEMI range but is felt related to sepsis rather than acute coronary syndrome. Most likely related to type II DE secondary to supply demand mismatch. Sepsis: Controlled Aortic stenosis: This is mild to moderate. Currently no symptoms attributable to aortic stenosis. Dementia: Medical management is being recommended. - Time Time with patient: 15-25 minutes - CODE STATUS was discussed, patient remains full code. Surrogate decision-maker unchanged. Multiple medical problems were addressed. More than 50% of the time spent coordinating care, discussing management plans with involved caregivers. Management plans discussed with involved personnels. Medical decision making was of moderate to high complexity , patient's has multiple comorbidities. Medications reviewed and adjusted accordingly: Yes
--- NOTE | 2017-08-22 10:40 | PDOC PROGRESS REPORT ---
Subjective Progress Note for:: 08/22/17 Subjective:: Post OP day 2, patient doing well from cardiac standpoint. No symptoms of shortness of breath, chest pain, palpitations, syncope, near syncope. Telemetry strips reviewed showed patient maintaining sinus rhythm. Physical Exam Vital Signs: Temp Pulse Resp BP Pulse Ox 98.5 F 81 18 182/88 H 95 08/22/17 10:19 08/22/17 10:19 08/22/17 10:19 08/22/17 10:19 08/22/17 10:19 Intake & Output 08/21/17 08/22/17 08/23/17 06:59 06:59 06:59 Intake Total 2650 420 Output Total 410 Balance 2240 420 Weight 99.6 kg Exam: GENERAL: well-nourished and in no acute distress. Alert and oriented x3 HEAD: Atraumatic, normocephalic. EYES: Pupils equal round and reactive to light, extraocular movements intact, sclera anicteric, conjunctiva are normal. ENT: TMs normal, nares patent, oropharynx clear without exudates. Moist mucous membranes. No oral ulcerations or bleeding gums noted NECK: supple without lymphadenopathy. Trachea is central. No cervical or axillary lymphadenopathy noted. Carotids are 2+, JVD WNL LUNGS: Respiration seems nonlabored, no significant accessory muscle action noted. Breath sounds clear to auscultation bilaterally and equal noted. No wheezes rales or rhonchi noted. No significant dullness noted on percussion. CHEST: Palpation of the chest wall shows no significant chest wall tenderness. No other significant abnormalities noted. HEART: [place] [employer], No PSH, 2-3/6 PATTIE aortic area, 1/6 fu systolic murmur mitral area, no rubs, no gallops. ABDOMEN: Soft, mild throughout right upper quadrant postsurgical tenderness appreciated, normoactive bowel sounds. No guarding, no rebound. No rigidity noted . No masses appreciated. EXTREMITIES: Pedal pulses are 1-2+, no calf tenderness noted. No clubbing or cyanosis.trace to 1+ pedal edema noted NEUROLOGICAL: Focused neurological exam showed no significant neurologic deficit. Normal speech, no focal weakness appreciated. PSYCH: Normal mood, normal affect. Judgment and insight within normal limits. SKIN: No significant ecchymosis, rash, ulcerations or signs of pruritus noted. MUSCULOSKELETAL EXAM: No significant joint swelling noted. Results Laboratory Results: 08/20/17 10:04 08/20/17 07:25 08/19/17 08:21 Stool - Stool - Final 08/19/17 08:21 Stool - Stool Stool Culture - Final C.albicans/C.dubliniensis 08/18/17 08/18/17 08/18/17 11:16 17:15 23:22 CK-MB (CK-2) Troponin I 0.143 0.152 0.131 NT-Pro-B Natriuret Pep 08/19/17 08/19/17 08/20/17 05:32 05:32 16:45 CK-MB (CK-2) 0.53 Troponin I 0.107 0.057 NT-Pro-B Natriuret Pep 2960 H 08/21/17 04:47 CK-MB (CK-2) Troponin I 0.042 NT-Pro-B Natriuret Pep EKG Comments: Telemetry strips reviewed showed sinus rhythm. Occasional APCs and VPCs noted. EKG from yesterday shows no acute ST-T wave changes. Impressions: Abdomen/Pelvis CT 08/15/17 17:19 IMPRESSION: 1. Cholelithiasis versus a small calcified gallbladder polyp. 2. Atherosclerosis as described. 3. Diverticulosis coli. 4. Osseous changes as described. Chest X-Ray 08/15/17 21:10 IMPRESSION: Central venous access catheter placed via right IJ approach. Catheter tip at right atrium. No pneumothorax. Abdomen MRI 08/16/17 00:00 IMPRESSION: MILD GALLBLADDER WALL THICKENING WITH PERICHOLECYSTIC FLUID CONSISTENT WITH ACUTE CHOLECYSTITIS. TRACE PERIHEPATIC FLUID. THE COMMON BILE DUCT IS MILDLY DILATED. NO DEFINITE DUCTAL STONES VISUALIZED. CANNOT ENTIRELY EXCLUDE POSSIBLY OF A TINY STONE AT THE AMPULLA. NO OTHER SIGNIFICANT FINDINGS OTHER THAN SMALL PLEURAL EFFUSIONS. Abdomen Ultrasound 08/16/17 00:00 IMPRESSION: Cholelithiasis. Gallbladder polyps. Cholecystitis. Assessment & Plan - Diagnosis (1) Status post cholecystectomy Is this a current diagnosis for this admission?: Yes (2) Diabetes mellitus type 2 in obese Is this a current diagnosis for this admission?: Yes (3) GERD (gastroesophageal reflux disease) Qualifiers: Esophagitis presence: esophagitis presence not specified Qualified Code(s) : K21.9 - Gastro-esophageal reflux disease without esophagitis Is this a current diagnosis for this admission?: Yes (4) HTN (hypertension) Qualifiers: Hypertension type: essential hypertension Qualified Code(s): I10 - Essential (primary) hypertension Is this a current diagnosis for this admission?: Yes (5) NSTEMI (non-ST elevated myocardial infarction) Is this a current diagnosis for this admission?: Yes (6) Sepsis Qualifiers: Sepsis type: sepsis due to unspecified organism Qualified Code(s): A41.9 - Sepsis, unspecified organism Is this a current diagnosis for this admission?: Yes (7) Aortic stenosis Qualifiers: Cardiac valve disease etiology: nonrheumatic Qualified Code(s): I35.0 - Nonrheumatic aortic (valve) stenosis Is this a current diagnosis for this admission?: Yes - Notes Notes: Patient generally stable from cardiac standpoint. Patient had no immediate cardiac complications or any other complications post surgery. Patient generally improved. Patient stable from cardiac standpoint to be discharged. Patient given my card. She can follow-up with me if she desires. Patient predischarge medications were reviewed and is noted to be satisfactory. - Time Time with patient: 15-25 minutes - CODE STATUS was discussed, patient remains full code. Surrogate decision-maker unchanged. Multiple medical problems were addressed. More than 50% of the time spent coordinating care, discussing management plans with involved caregivers. Management plans discussed with involved personnels. Medical decision making was of moderate to high complexity , patient's has multiple comorbidities.
--- NOTE | 2017-08-22 16:26 | PDOC DISCHARGE SUMMARY ---
General - Admit/Disc Date/PCP Admission Date/Primary Care Provider: 08/15/17 19:46 DULCE NUNEZ PA-C Discharge Date: 08/22/17 - Discharge Diagnosis (1) Septic shock Is this a current diagnosis for this admission?: Yes (2) Acute infectious diarrhea Is this a current diagnosis for this admission?: Yes (3) Acute renal failure Is this a current diagnosis for this admission?: Yes (4) Diabetes mellitus type 2 in obese Is this a current diagnosis for this admission?: Yes (5) UTI (urinary tract infection) Is this a current diagnosis for this admission?: Yes (6) Acute cholecystitis due to biliary calculus Is this a current diagnosis for this admission?: Yes (7) Gallstone pancreatitis Is this a current diagnosis for this admission?: Yes (8) Bradycardia Is this a current diagnosis for this admission?: Yes (9) NSTEMI (non-ST elevated myocardial infarction) Is this a current diagnosis for this admission?: Yes (10) HTN (hypertension) Is this a current diagnosis for this admission?: Yes (11) Cora albicans infection Is this a current diagnosis for this admission?: Yes - Additional Information Resuscitation Status: Full Code Discharge Diet: As Tolerated Discharge Activity: Activity As Tolerated Home Medications: Canagliflozin [Invokana] 100 mg PO DAILY 08/15/17 Cholecalciferol (Vitamin D3) [Vitamin D3 2000 unit Tablet] 2,000 unit PO DAILY 08/15/17 Fenofibrate 160 mg PO DAILY 08/15/17 Glipizide [Glucotrol 10 mg Tablet] 10 mg PO BIDACBS 08/15/17 Lisinopril/Hydrochlorothiazide [Lisinopril-Hctz 10-12.5 mg Tab] 1 tab PO DAILY 08/15/17 Magnesium Oxide [Mag-Ox 400 mg Tablet] 400 mg PO BID 08/15/17 Memantine HCl [Namenda 10 mg Tablet] 5 mg PO DAILY 08/15/17 Metformin HCl [Metformin HCl ER] 500 mg PO QHS 08/15/17 Multivitamin [Tab-A-Adryan (Multiple Vitamin) Tablet] 1 tab PO DAILY 08/15/17 Omeprazole 20 mg PO DAILY 08/15/17 Simvastatin [Zocor 40 mg Tablet] 40 mg PO QHS 08/15/17 Tolterodine Tartrate [Detrol] 2 mg PO BID 08/15/17 Vit A/Vit C/Vit E/Zinc/Copper [Preservision Areds Softgel] 1 cap PO BID Fluconazole [Diflucan 100 Mg Tablet] 100 mg PO DAILY #7 tablet 08/22/17 History of Present Illness History of Present Illness: ROHIT BERGMAN is a 82 year old female presented to emergency room complaining of generalized weakness, body aches for around 24 hours prior to presentation. She had experienced multiple bouts of diarrhea the prior day. Upon evaluation in emergency room patient was found to be hypotensive. She was administered 3 L of IV fluids with not much improvement and finally required placement on levophed. CT of the abdomen and pelvis was concerning because of gallbladder disease. Patient was placed on IV antibiotic therapy, IV fluids and vasopressor support and was admitted under the hospitalist service to intensive care unit. Hospital Course Hospital Course: While in the intensive care unit patient responded to therapy and we were able to wean her of vasopressor support. Urine culture grew E. coli which was pansensitive. Patient was fully treated while in-house for this problem. Surgical team was consulted and impression was that presentation related to gallbladder disease. It is a offer impression that likely patient had transient bacteremia with translocation to the urinary tract. She underwent laparoscopic cholecystectomy on August 20 and tolerated procedure well. Patient was able to tolerate diet. Some issues that were concerning and evaluated was the presence of a positive troponin which was deemed to be due to myocardial demand ischemia in the setting of septic shock. Patient was evaluated by cardiology service for the purpose of clearing her for surgery. Blood pressure was labile and BMP was transiently elevated. She was treated with IV Lasix and management of her blood pressure. On the overall patient reports responded to treatment rendered and since she had achieved maximum benefit of hospitalization stay prompted to discharge under stable condition. As a final note stool culture grew Cora. We opted to place patient on Diflucan. Recommend primary care provider to follow through if diarrhea persist. Physical Exam Vital Signs: Temp Pulse Resp BP Pulse Ox 98.5 F 81 18 182/88 H 95 08/22/17 10:19 08/22/17 10:19 08/22/17 10:19 08/22/17 10:19 08/22/17 10:19 Intake & Output 08/21/17 08/22/17 08/23/17 06:59 06:59 06:59 Intake Total 2650 420 Output Total 410 Balance 2240 420 Weight 99.6 kg General appearance: PRESENT: no acute distress, cooperative, obese Head exam: PRESENT: atraumatic, normocephalic Eye exam: PRESENT: EOMI, PERRLA Mouth exam: PRESENT: moist, neck supple Neck exam: PRESENT: full ROM. ABSENT: JVD, tenderness, thyromegaly Respiratory exam: PRESENT: clear to auscultation thiago Cardiovascular exam: PRESENT: RRR, systolic murmur. ABSENT: diastolic murmur GI/Abdominal exam: PRESENT: normal bowel sounds, soft, tenderness - In area of cholecystectomy Extremities exam: PRESENT: full ROM. ABSENT: joint swelling, pedal edema Musculoskeletal exam: PRESENT: full ROM Neurological exam: PRESENT: alert, oriented to person, oriented to place, oriented to time Psychiatric exam: PRESENT: appropriate affect, normal mood Skin exam: PRESENT: intact, normal color Results Laboratory Results: 08/20/17 10:04 08/20/17 07:25 08/19/17 08:21 Stool - Stool - Final 08/19/17 08:21 Stool - Stool Stool Culture - Final C.albicans/C.dubliniensis 08/18/17 08/18/17 08/18/17 11:16 17:15 23:22 CK-MB (CK-2) Troponin I 0.143 0.152 0.131 NT-Pro-B Natriuret Pep 08/19/17 08/19/17 08/20/17 05:32 05:32 16:45 CK-MB (CK-2) 0.53 Troponin I 0.107 0.057 NT-Pro-B Natriuret Pep 2960 H 08/21/17 04:47 CK-MB (CK-2) Troponin I 0.042 NT-Pro-B Natriuret Pep Impressions: Abdomen/Pelvis CT 08/15/17 17:19 IMPRESSION: 1. Cholelithiasis versus a small calcified gallbladder polyp. 2. Atherosclerosis as described. 3. Diverticulosis coli. 4. Osseous changes as described. Chest X-Ray 08/15/17 21:10 IMPRESSION: Central venous access catheter placed via right IJ approach. Catheter tip at right atrium. No pneumothorax. Abdomen MRI 08/16/17 00:00 IMPRESSION: MILD GALLBLADDER WALL THICKENING WITH PERICHOLECYSTIC FLUID CONSISTENT WITH ACUTE CHOLECYSTITIS. TRACE PERIHEPATIC FLUID. THE COMMON BILE DUCT IS MILDLY DILATED. NO DEFINITE DUCTAL STONES VISUALIZED. CANNOT ENTIRELY EXCLUDE POSSIBLY OF A TINY STONE AT THE AMPULLA. NO OTHER SIGNIFICANT FINDINGS OTHER THAN SMALL PLEURAL EFFUSIONS. Abdomen Ultrasound 08/16/17 00:00 IMPRESSION: Cholelithiasis. Gallbladder polyps. Cholecystitis.
== END 2017-08-22 11:59 | disposition home or self-care (01) | DRG 853 ==
LOC: ER 15:53 → EH 19:46 → UNDOADMIN 19:55 → EH 19:55 → ICU 22:25 → 4N 08-17 15:10
PROVIDERS: ADMIT Family Medicine; ATTEND Family Medicine
PROC: 02H633Z Insertion of Infusion Device into Right Atrium, Percutaneous Approach (ICD-10-PCS; 2017-08-15)
PROC: 0FT44ZZ Resection of Gallbladder, Percutaneous Endoscopic Approach (ICD-10-PCS; principal; 2017-08-20 14:00)
DX: A41.9 Sepsis, unspecified organism (principal); R65.21 Severe sepsis with septic shock; N17.0 Acute kidney failure with tubular necrosis; K85.10 Biliary acute pancreatitis without necrosis or infection; K80.00 Calculus of gallbladder with acute cholecystitis without obstruction; N30.00 Acute cystitis without hematuria; K66.0 Peritoneal adhesions (postprocedural) (postinfection); E11.9 Type 2 diabetes mellitus without complications; F03.90 Unspecified dementia, unspecified severity, without behavioral disturbance, psychotic disturbance, mood disturbance, and anxiety; E86.0 Dehydration; E83.42 Hypomagnesemia; E78.5 Hyperlipidemia, unspecified; R79.89 Other specified abnormal findings of blood chemistry; I35.0 Nonrheumatic aortic (valve) stenosis; R74.8 Abnormal levels of other serum enzymes; B37.9 Candidiasis, unspecified; E66.9 Obesity, unspecified; K21.9 Gastro-esophageal reflux disease without esophagitis; I10 Essential (primary) hypertension; R01.1 Cardiac murmur, unspecified; Z90.710 Acquired absence of both cervix and uterus; Z88.0 Allergy status to penicillin; Z79.84 Long term (current) use of oral hypoglycemic drugs; Z79.899 Other long term (current) drug therapy; Z68.37 Body mass index [BMI] 37.0-37.9, adult
CPT/HCPCS: 00790; 36415; 71010; 74176; 74181; 76705; 80048; 80053; 81001; 82040; 82150; 82272; 82553; 82803; 82962; 83605; 83690; 83735; 83880; 84484; 85025; 85610; 85730; 86850; 86900; 86901; 87040; 87045; 87086; 87088; 87186; 87205; 87493; 88304; 89055; 93005; 93010; 93306; 96361; 96365; 96368; 99285; A9270 GY; C1751; C1769; G8978-GP; G8979-GP; J0330; J0360; J0743; J1170; J1644; J1741; J1815; J1940; J1956; J2250; J2405; J2704; J3010; J3370; J3475; J3480; J3490; J7030; J7060; S0028

== ENCOUNTER 2018-02-23 20:37 | Inpatient (IN) | payer MEDICARE, OTHER ==
--- NOTE | 2018-02-23 21:07 | ER Document Report ---
ED General - General Stated Complaint: GENERAL WEAKNESS Time Seen by Provider: 02/23/18 20:50 Notes: Patient is an 82-year-old female comes emergency department for chief complaint of weakness, decreased appetite, decreased responsiveness, and imbalance for the past 2 days. Patient also is being treated for shingles and bronchitis which was started 1 week ago. She just finished her Valtrex, doxycycline, and a Medrol Dosepak. Shingles rash has significantly improved, cough has basically resolved. Patient only reporting that her rash hurts, she denies any other symptoms at this time other than feeling really weak. Family at bedside states that she is sleeping constantly, she is difficult to arouse, and when she walks she is grabbing onto everything to stand up which is unusual for her. No fever, no vomiting. Past medical history of type 2 diabetes, hypertension , hyperlipidemia, GERD, no cardiopulmonary history reported. TRAVEL OUTSIDE OF THE [place] IN LAST 30 DAYS: No - Related Data Allergies/Adverse Reactions: Penicillins Allergy (Verified 08/15/17 16:34) Past Medical History - General Information source: Patient, Relative - Social History Smoking Status: Never Smoker Frequency of alcohol use: None Drug Abuse: None Lives with: Family Family History: Malignancy - Past Medical History Cardiac Medical History: Reports: Hx Hypertension, Hx Heart Murmur Endocrine Medical History: Reports: Hx Diabetes Mellitus Type 2 Renal/ Medical History: Denies: Hx Peritoneal Dialysis GI Medical History: Reports: Hx Gastroesophageal Reflux Disease Past Surgical History: Reports: Hx Hysterectomy - Immunizations Hx Pneumococcal Vaccination: 10/15/14 Review of Systems - Review of Systems Constitutional: No symptoms reported EENT: No symptoms reported Cardiovascular: No symptoms reported Respiratory: No symptoms reported Gastrointestinal: No symptoms reported Genitourinary: No symptoms reported Female Genitourinary: No symptoms reported Musculoskeletal: No symptoms reported Skin: No symptoms reported Hematologic/Lymphatic: No symptoms reported Neurological/Psychological: No symptoms reported Physical Exam - Vital signs Vitals: Resp 20 02/23/18 20:50 - General General appearance: Appears well In distress: None - HEENT Head: Normocephalic, Atraumatic Eyes: Normal Conjunctiva: Normal Extraocular movements intact: Yes Eyelashes: Normal Pupils: PERRL Mucous membranes: Dry Pharynx: Normal Neck: Normal. No: Meningismus - Respiratory Respiratory status: No respiratory distress Breath sounds: Normal. No: Decreased air movement, Wheezing - Cardiovascular Rhythm: Regular. No: Tachycardia Heart sounds: Normal auscultation, S1 appreciated, S2 appreciated Murmur: Yes - 1/6 heard throughout Normal capillary refill: Yes - Abdominal Inspection: Normal Tenderness: Nontender. No: Tender - Back Back: Normal, Nontender. No: Tender, Vertebra tenderness - Extremities General upper extremity: Normal inspection, Nontender, Normal ROM General lower extremity: Normal inspection, Nontender, Normal ROM. 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 No T-wave inversions or ST segment changes in consecutive leads. CBC unremarkable. Chemistry showing marked uremia at 93 with GFR of only 19 compared to normal prior evaluation. Creatinine is 2.47. Reportedly patient has not been eating/ drinking for the past several days. Giving IV fluids. Urine obtained after IV fluids, and unremarkable. Chest x-ray unremarkable. CAT scan of the head unremarkable. Patient unsteady on her feet and reports feeling awful, she does appear weak but she is oriented and has a normal neurological exam. She does have a rash that is fading consistent with shingles , however based on her evaluation I have very low suspicion of encephalitis. Discussed with Dr. Henderson, recommends admission for acute renal failure. Discussed with Dr. Meyer, patient will be admitted to telemetry full admission. - Vital Signs Vital signs: Temp Pulse Resp BP Pulse Ox 98.3 F 18 117/49 L 96 02/24/18 02:00 02/24/18 02:01 02/24/18 01:01 02/24/18 02:01 - Laboratory Result Diagrams: 02/24/18 04:38 02/24/18 04:38 Laboratory results interpreted by me: 05/10/0102/23/18 02/23/18 20:55 20:55 22:31 WBC 12.9 H Hgb 11.7 L Absolute Neutrophils 8.8 H Potassium 5.3 H Carbon Dioxide 19 L BUN 93 H Creatinine 2.47 H Est GFR ( Amer) 23 L Est GFR (Non-Af Amer) 19 L Glucose 141 H Calcium 10.3 H Direct Bilirubin 0.5 H Creatine Kinase < 20 L Albumin 3.4 L Urine Glucose (UA) >=500 H Urine Ascorbic Acid 40 H Discharge - Discharge Clinical Impression: Uremia, Weakness Acute renal failure Qualifiers: Acute renal failure type: unspecified Qualified Code(s): N17.9 - Acute kidney failure, unspecified Condition: Stable Disposition: ADMITTED INPATIENT Admitting Provider: Hospitalist Unit Admitted: Telemetry
[2018-02-23 21:09] LABS: ABSOLUTE BASOPHILS # (AUTO) 0.1 10^3/uL (0.0-0.2); ABSOLUTE EOSINOPHILS # (AUTO) 0.2 10^3/uL (0.0-0.6); ABSOLUTE LYMPHOCYTES (AUTO) 2.8 10^3/uL (0.5-4.7); ABSOLUTE MONOCYTES (AUTO) 1.1 10^3/uL (0.1-1.4); ABSOLUTE NEUT (AUTO) 8.8 10^3/uL (1.7-8.2); BASOPHILS % (AUTO) 0.5 % (0-2); EOSINOPHILS % (AUTO) 1.2 % (0-6); HEMATOCRIT 36.1 % (36.0-47.0); HEMOGLOBIN 11.7 g/dL (12.0-15.5); LYMPHOCYTES % (AUTO) 21.4 % (13-45); MEAN CORPUSCULAR HGB CONC 32.4 g/dL (32.0-36.0); MEAN CORPUSCULAR VOLUME 89 fl (80-97); MONOCYTES % (AUTO) 8.5 % (3-13); PLATELET COUNT 302 10^3/uL (150-450); RED BLOOD COUNT 4.04 10^6/uL (3.72-5.28); SEGMENTED NEUTROPHILS % (AUTO) 68.4 % (42-78); TOTAL CELLS COUNTED % (AUTO) 100 %; WHITE BLOOD COUNT 12.9 10^3/uL (4.0-10.5)
[2018-02-23 21:37] LABS: ALANINE AMINOTRANSFERASE 37 U/L (9-52); ALBUMIN 3.4 g/dL (3.5-5.0); ALKALINE PHOSPHATASE 44 U/L (38-126); ANION GAP 16 (5-19); ASPARTATE AMINO TRANSFERASE 29 U/L (14-36); BILIRUBIN,DIRECT 0.5 mg/dL (0.0-0.4); BILIRUBIN,TOTAL 0.5 mg/dL (0.2-1.3); BLOOD UREA NITROGEN 93 mg/dL (7-20); CALCIUM 10.3 mg/dL (8.4-10.2); CARBON DIOXIDE 19 mmol/L (22-30); CHLORIDE 107 mmol/L (98-107); CREATINE KINASE < 20 U/L (30-135); GLUCOSE 141 mg/dL (75-110); POTASSIUM 5.3 mmol/L (3.6-5.0); SODIUM 142.3 mmol/L (137-145); TOTAL PROTEIN 6.4 g/dL (6.3-8.2)
--- NOTE | 2018-02-23 21:43 | EKG REPORT ---
SEVERITY:- ABNORMAL ECG - SINUS TACHYCARDIA PAIRED VENTRICULAR PREMATURE COMPLEXES : Confirmed by: Cristhian Ross MD 23-Feb-2018 21:42:36
[2018-02-23 21:51] LABS: TROPONIN I < 0.012 ng/mL
[2018-02-23] MEDS ORDERED: NORMAL SALINE 1000 ML 500 ML IV ONE ×2 (21:53→23:13)
--- NOTE | 2018-02-23 22:10 | RADIOLOGY REPORT (SQ) ---
EXAM DESCRIPTION: CT HEAD WITHOUT COMPLETED DATE/TIME: 02/23/2018 9:57 pm REASON FOR STUDY: weakness, imbalance COMPARISON: None. TECHNIQUE: Axial images acquired through the brain without intravenous contrast. Images reviewed wi th bone, brain and subdural windows. Images stored on PACS. All CT scanners at this facility use dose modulation, iterative reconstruction, and/or weight based d osing when appropriate to reduce radiation dose to as low as reasonably achievable (ALARA). [facility]: Dose Right [facility]: CareDose [facility]: Dose Right [facility]: Teradose 4D [facility]: [employer] RADIATION DOSE: mGy. LIMITATIONS: None. FINDINGS: VENTRICLES: Prominent. CEREBRUM: No mass effect. No hemorrhage. No midline shift. Areas of low density in the white matte r most likely due to chronic micro-vascular ischemic change. No evidence for acute territorial infar ction. CEREBELLUM: No hemorrhage. No alteration of density. No evidence for acute infarction. EXTRAAXIAL SPACES: Age-related involutional change. No fluid collections. ORBITS AND GLOBE: Symmetrical contour of the globes. CALVARIUM: No depressed fracture. PARANASAL SINUSES: No air-fluid level. SOFT TISSUES: No hematoma. IMPRESSION: No acute intracranial hemorrhage or acute territorial infarct. Chronic changes of atrop hy and microvascular ischemia. EVIDENCE OF ACUTE STROKE: NO. TECHNICAL DOCUMENTATION: JOB ID: [id number] Quality ID # [id number]: Final reports with documentation of one or more dose reduction techniques (e.g., Au tomated exposure control, adjustment of the mA and/or kV according to patient size, use of iterative reconstruction technique) 2010 [employer]- All Rights Reserved Reading location - IP/workstation name: [email or web address]
--- NOTE | 2018-02-23 22:26 | RADIOLOGY REPORT (SQ) ---
EXAM DESCRIPTION: CHEST SINGLE VIEW COMPLETED DATE/TIME: 02/23/2018 9:55 pm REASON FOR STUDY: weakness, cough COMPARISON: Chest x-ray 08/15/2017. EXAM PARAMETERS: NUMBER OF VIEWS: One view. TECHNIQUE: Single frontal radiographic view of the chest acquired. RADIATION DOSE: NA LIMITATIONS: None. FINDINGS: LUNGS AND PLEURA: No consolidation, pneumothorax or pleural effusion. MEDIASTINUM AND HILAR STRUCTURES: No masses. Contour normal. HEART AND VASCULAR STRUCTURES: Heart normal in size. Normal vasculature. BONES: No acute findings. HARDWARE: None in the chest. IMPRESSION: No acute radiographic finding in the chest. TECHNICAL DOCUMENTATION: JOB ID: [id number] 2010 [employer]- All Rights Reserved Reading location - IP/workstation name: [email or web address]
[2018-02-23 22:58] LABS: APPEARANCE,URINE CLEAR; BILIRUBIN,URINE NEGATIVE (NEGATIVE); COLOR,URINE YELLOW; GLUCOSE, URINE >=500 mg/dL (NEGATIVE); KETONES,URINE NEGATIVE (NEGATIVE); LEUKOCYTE ESTERASE,URINE NEGATIVE (NEGATIVE); NITRITE,URINE NEGATIVE (NEGATIVE); PROTEIN,URINE NEGATIVE (NEGATIVE); URINE SPECIFIC GRAVITY 1.014; UROBILINOGEN,URINE NEGATIVE mg/dL (<2.0)
[2018-02-24] MEDS ORDERED: ONDANSETRON HCL INJ/PF 4 MG/2 ML SDV IV PRN (00:42)
[2018-02-24] MEDS ORDERED: DEXTROSE 40% GEL 15 GM TUBE PO PRN ×2 (00:42)
[2018-02-24] MEDS ORDERED: INSULIN LISPRO 100 UNIT/ML 3 ML VIAL SUBCUT PRN (00:42)
[2018-02-24] MEDS ORDERED: MAG HYDROX/AL HYDROX/SIMETH SUSP 30 ML UDCUP PO PRN (00:42)
[2018-02-24] MEDS ORDERED: DEXTROSE 50%-WATER 25 GM/50 ML DISP.SYRIN IV PRN ×2 (00:42)
[2018-02-24] MEDS ORDERED: ACETAMINOPHEN 325 MG TABLET PO PRN (00:42)
[2018-02-24] MEDS ORDERED: IPRATROPIUM/ALBUTEROL 0.5-2.5 MG/3 ML AMPUL NEB PRN (00:42)
[2018-02-24] MEDS ORDERED: GLUCAGON,HUMAN RECOMB 1 MG INJ IM PRN (00:42)
[2018-02-24] MEDS ORDERED: SODIUM POLYSTYRENE SULFONATE 15 GM/60 ML PO ONE ×2 (00:45→16:00)
[2018-02-24] MEDS: NORMAL SALINE 1000 ML 1,000 ML IV SCH ×3 (02:41→11:56)
[2018-02-24 05:01] LABS: ABSOLUTE BASOPHILS # (AUTO) 0.1 10^3/uL (0.0-0.2); ABSOLUTE EOSINOPHILS # (AUTO) 0.2 10^3/uL (0.0-0.6); ABSOLUTE LYMPHOCYTES (AUTO) 3.1 10^3/uL (0.5-4.7); ABSOLUTE NEUT (AUTO) 6.4 10^3/uL (1.7-8.2); BASOPHILS % (AUTO) 0.8 % (0-2); EOSINOPHILS % (AUTO) 1.5 % (0-6); HEMOGLOBIN 10.7 g/dL (12.0-15.5); MEAN CORPUSCULAR HEMOGLOBIN 29.8 pg (27.0-33.4); MEAN CORPUSCULAR HGB CONC 33.6 g/dL (32.0-36.0); MEAN CORPUSCULAR VOLUME 89 fl (80-97); MONOCYTES % (AUTO) 8.9 % (3-13); PLATELET COUNT 253 10^3/uL (150-450); RED CELL DISTRIBUTION WIDTH 13.1 % (11.5-14.0); SEGMENTED NEUTROPHILS % (AUTO) 59.8 % (42-78); TOTAL CELLS COUNTED % (AUTO) 100 %; WHITE BLOOD COUNT 10.7 10^3/uL (4.0-10.5)
[2018-02-24 05:19] LABS: ANION GAP 14 (5-19); BLOOD UREA NITROGEN 83 mg/dL (7-20); CALCIUM 9.4 mg/dL (8.4-10.2); CARBON DIOXIDE 19 mmol/L (22-30); CHLORIDE 113 mmol/L (98-107); GLUCOSE 42 mg/dL (75-110); POTASSIUM 4.8 mmol/L (3.6-5.0); SODIUM 145.8 mmol/L (137-145)
--- NOTE | 2018-02-24 06:37 | PDOC H&P ---
History of Present Illness Admission Date/PCP: 02/24/18 00:56 KASIE NAVA Patient complains of: Generalized weakness History of Present Illness: ROHIT BERGMAN is a 82 year old female with a history of dementia, diabetes, hypertension, GERD, irritable bowel syndrome, rheumatic heart disease, recurrent urinary tract infection and recent bronchitis and shingles. Patient presents with 48 hours of fatigue and poor p.o. intake prompting evaluation emergency room where she is found to have leukocytosis, acute renal failure and hyperkalemia. She started on IV fluids refer the hospitalist for admission. Patient denies pain with exception to the right chest wall were a shingles rash appears healing. Patient admits anorexia stating nothing tastes good. She denies constipation, diarrhea, dysuria or shortness of breath. Past Medical History Cardiac Medical History: Reports: Hypertension, Heart Murmur Pulmonary Medical History: Reports: None EENT Medical History: Reports: None Endocrine Medical History: Reports: Diabetes Mellitus Type 2 GI Medical History: Reports: Gastroesophageal Reflux Disease Psychiatric Medical History: Reports: Dementia Past Surgical History Past Surgical History: Reports: Hysterectomy Social History Information Source: Patient Lives with: Family Smoking Status: Never Smoker Frequency of Alcohol Use: None Hx Recreational Drug Use: No Hx Prescription Drug Abuse: No - Advance Directive Resuscitation Status: Full Code Family History Family History: Malignancy Parental Family History Reviewed: Yes Children Family History Reviewed: Yes Sibling(s) Family History Reviewed.: Yes Medication/Allergy Home Medications: Canagliflozin [Invokana] 100 mg PO DAILY 08/15/17 Cholecalciferol (Vitamin D3) [Vitamin D3 2000 unit Tablet] 2,000 unit PO DAILY 08/15/17 Fenofibrate 160 mg PO DAILY 08/15/17 Glipizide [Glucotrol 10 mg Tablet] 10 mg PO BIDACBS 08/15/17 Lisinopril/Hydrochlorothiazide [Lisinopril-Hctz 10-12.5 mg Tab] 1 tab PO DAILY 08/15/17 Magnesium Oxide [Mag-Ox 400 mg Tablet] 400 mg PO BID 08/15/17 Memantine HCl [Namenda 10 mg Tablet] 5 mg PO DAILY 08/15/17 Metformin HCl [Metformin HCl ER] 500 mg PO QHS 08/15/17 Multivitamin [Tab-A-Adryan (Multiple Vitamin) Tablet] 1 tab PO DAILY 08/15/17 Omeprazole 20 mg PO DAILY 08/15/17 Simvastatin [Zocor 40 mg Tablet] 40 mg PO QHS 08/15/17 Tolterodine Tartrate [Detrol] 2 mg PO BID 08/15/17 Vit A/Vit C/Vit E/Zinc/Copper [Preservision Areds Softgel] 1 cap PO BID Fluconazole [Diflucan 100 Mg Tablet] 100 mg PO DAILY #7 tablet 08/22/17 Allergies/Adverse Reactions: Penicillins Allergy (Verified 08/15/17 16:34) Review of Systems Constitutional: PRESENT: fatigue. ABSENT: chills, fever(s), headache(s), weight gain, weight loss Eyes: ABSENT: visual disturbances Ears: ABSENT: hearing changes Cardiovascular: ABSENT: chest pain, dyspnea on exertion, edema, orthropnea, palpitations Respiratory: ABSENT: cough, hemoptysis Gastrointestinal: ABSENT: abdominal pain, constipation, diarrhea, hematemesis, hematochezia, nausea, vomiting Genitourinary: ABSENT: dysuria, hematuria Musculoskeletal: ABSENT: joint swelling Integumentary: PRESENT: lesions - Herpetic rash of the right anterior lateral chest wall.. ABSENT: rash, wounds Neurological: ABSENT: abnormal gait, abnormal speech, confusion, dizziness, focal weakness, syncope Psychiatric: ABSENT: anxiety, depression, homidical ideation, suicidal ideation Endocrine: ABSENT: cold intolerance, heat intolerance, polydipsia, polyuria Hematologic/Lymphatic: ABSENT: easy bleeding, easy bruising Physical Exam Vital Signs: Temp Pulse Resp BP Pulse Ox 98.3 F 18 117/49 L 96 02/24/18 02:00 02/24/18 02:01 02/24/18 01:01 02/24/18 02:01 General appearance: PRESENT: no acute distress, cooperative, disheveled Head exam: PRESENT: atraumatic, normocephalic Eye exam: PRESENT: conjunctiva pink, EOMI, PERRLA. ABSENT: scleral icterus Ear exam: PRESENT: normal external ear exam Mouth exam: PRESENT: dry mucosa, neck supple. ABSENT: laceration Neck exam: ABSENT: carotid bruit, JVD, lymphadenopathy, thyromegaly Respiratory exam: PRESENT: clear to auscultation thiago. ABSENT: rales, rhonchi, wheezes Cardiovascular exam: PRESENT: RRR. ABSENT: diastolic murmur, rubs, systolic murmur Pulses: PRESENT: normal dorsalis pedis pul Vascular exam: PRESENT: normal capillary refill GI/Abdominal exam: PRESENT: normal bowel sounds, soft. ABSENT: distended, guarding, mass, organolmegaly, rebound, tenderness Rectal exam: PRESENT: deferred Extremities exam: PRESENT: full ROM. ABSENT: calf tenderness, clubbing, pedal edema Neurological exam: PRESENT: alert, awake, oriented to person, oriented to place , oriented to time, oriented to situation, CN II-XII grossly intact. ABSENT: motor sensory deficit Psychiatric exam: PRESENT: appropriate affect, normal mood. ABSENT: homicidal ideation, suicidal ideation Skin exam: PRESENT: vesicles - Partially healed herpetic rash to the right anterior lateral chest wall Results Laboratory Results: 02/24/18 04:38 02/24/18 04:38 02/24/18 02/24/18 04:38 04:38 WBC 10.7 H RBC 3.60 L Hgb 10.7 L Hct 32.0 L MCV 89 MCH 29.8 MCHC 33.6 RDW 13.1 Plt Count 253 Seg Neutrophils % 59.8 Lymphocytes % 29.0 Monocytes % 8.9 Eosinophils % 1.5 Basophils % 0.8 Absolute Neutrophils 6.4 Absolute Lymphocytes 3.1 Absolute Monocytes 1.0 Absolute Eosinophils 0.2 Absolute Basophils 0.1 Sodium 145.8 H Potassium 4.8 Chloride 113 H Carbon Dioxide 19 L Anion Gap 14 BUN 83 H Creatinine 2.10 H Est GFR ( Amer) 27 L Est GFR (Non-Af Amer) 23 L Glucose 42 L Calcium 9.4 Impressions: Chest X-Ray 02/23/18 21:02 IMPRESSION: No acute radiographic finding in the chest. Head CT 02/23/18 21:03 IMPRESSION: No acute intracranial hemorrhage or acute territorial infarct. Chronic changes of atrophy and microvascular ischemia. EVIDENCE OF ACUTE STROKE: NO. Assessment & Plan - Diagnosis (1) Acute renal failure Qualifiers: Acute renal failure type: unspecified Qualified Code(s): N17.9 - Acute kidney failure, unspecified Is this a current diagnosis for this admission?: Yes Plan: Poor p.o. intake, metformin, hydrochlorothiazide and JOSE inhibitor held. IV fluid challenge avoid nephrotoxic meds and doses reevaluate chemistry (2) Uremia Is this a current diagnosis for this admission?: Yes Plan: Resulting in poor p.o. intake, IV fluid challenge as above (3) Weakness Is this a current diagnosis for this admission?: Yes Plan: Generalized debility, deconditioning. Physical therapy evaluation (4) Hyperkalemia Is this a current diagnosis for this admission?: Yes Plan: No peaked T waves, Re-evaluation of chemistry following IV fluid challenge. - Time Time Spent: 30 to 50 Minutes - Inpatient Certification Medical Necessity: Need Close Monitoring Due to Risk of Patient Decompensation
[2018-02-24] MEDS: HEPARIN SOD (PORCINE) 5,000 UNIT/ML 1 ML SYRINGE SUBCUT SCH ×3 (07:05→22:25)
[2018-02-24] MEDS ORDERED: DOCUSATE SODIUM 100 MG CAPSULE PO SCH (10:00)
[2018-02-24] MEDS: MAGNESIUM OXIDE 400 MG TABLET PO SCH ×2 (10:32→17:38)
[2018-02-24] MEDS: MEMANTINE HCL 10 MG TABLET PO SCH (10:32)
--- NOTE | 2018-02-24 14:10 | PDOC PROGRESS REPORT ---
Subjective Progress Note for:: 02/24/18 Subjective:: The patient is an 82-year-old female with a past medical history of dementia, diabetes, hypertension, GERD, irritable bowel syndrome, rheumatic heart disease , recurrent urinary tract infections and recent bronchitis and shingles who was admitted on 01/25/18 for acute renal failure. The patient is seen on morning rounds. She is found resting supine on room air. She reports generalized fatigue and weakness. She states that she has had poor p.o. intake recently as her foods have not tasted well since completing a course of medications for shingles outbreak approximately 2 weeks ago. She cannot recall the name of the medication. She was treated at the same time for acute bronchitis but cannot recall the name of that medication either. She reports continued right chest wall pain related to shingles. She also endorses occasional shortness of breath and a nonproductive cough. Otherwise, she denies fever, chills, chest pain, palpitations, orthopnea, abdominal pain, nausea, vomiting, diarrhea, constipation, urinary symptoms. She has no questions at this time. Reason For Visit: ARF BRONCHITIS Physical Exam Vital Signs: Temp Pulse Resp BP Pulse Ox 98.3 F 91 22 H 134/85 H 96 02/24/18 10:47 02/24/18 00:45 02/24/18 12:01 02/24/18 12:01 02/24/18 12:01 Intake & Output 02/23/18 02/24/18 02/25/18 06:59 06:59 06:59 Weight 80 kg General appearance: PRESENT: no acute distress, disheveled, obese, well- developed, well-nourished Head exam: PRESENT: atraumatic, normocephalic Eye exam: PRESENT: conjunctiva pink, EOMI, PERRLA. ABSENT: scleral icterus Ear exam: PRESENT: normal external ear exam Mouth exam: PRESENT: dry mucosa, tongue midline Neck exam: ABSENT: carotid bruit, JVD, lymphadenopathy, thyromegaly Respiratory exam: PRESENT: clear to auscultation thiago, symmetrical, unlabored. ABSENT: rales, rhonchi, wheezes Cardiovascular exam: PRESENT: RRR. ABSENT: diastolic murmur, rubs, systolic murmur Pulses: PRESENT: normal dorsalis pedis pul Vascular exam: PRESENT: normal capillary refill GI/Abdominal exam: PRESENT: normal bowel sounds, soft. ABSENT: distended, guarding, mass, organolmegaly, rebound, tenderness Rectal exam: PRESENT: deferred Extremities exam: PRESENT: full ROM. ABSENT: calf tenderness, clubbing, pedal edema Neurological exam: PRESENT: alert, awake, oriented to person, oriented to place , oriented to time, oriented to situation, CN II-XII grossly intact. ABSENT: motor sensory deficit Psychiatric exam: PRESENT: appropriate affect, normal mood. ABSENT: homicidal ideation, suicidal ideation Skin exam: PRESENT: dry, warm. ABSENT: cyanosis, intact - Partially healed shingles rash to right chest wall and skin folds of right breast, rash Results Laboratory Results: 02/24/18 04:38 02/24/18 04:38 02/24/18 02/24/18 04:38 04:38 WBC 10.7 H RBC 3.60 L Hgb 10.7 L Hct 32.0 L MCV 89 MCH 29.8 MCHC 33.6 RDW 13.1 Plt Count 253 Seg Neutrophils % 59.8 Lymphocytes % 29.0 Monocytes % 8.9 Eosinophils % 1.5 Basophils % 0.8 Absolute Neutrophils 6.4 Absolute Lymphocytes 3.1 Absolute Monocytes 1.0 Absolute Eosinophils 0.2 Absolute Basophils 0.1 Sodium 145.8 H Potassium 4.8 Chloride 113 H Carbon Dioxide 19 L Anion Gap 14 BUN 83 H Creatinine 2.10 H Est GFR ( Amer) 27 L Est GFR (Non-Af Amer) 23 L Glucose 42 L Calcium 9.4 Impressions: Chest X-Ray 02/23/18 21:02 IMPRESSION: No acute radiographic finding in the chest. Head CT 02/23/18 21:03 IMPRESSION: No acute intracranial hemorrhage or acute territorial infarct. Chronic changes of atrophy and microvascular ischemia. EVIDENCE OF ACUTE STROKE: NO. Assessment & Plan - Diagnosis (1) Acute renal failure Qualifiers: Acute renal failure type: unspecified Qualified Code(s): N17.9 - Acute kidney failure, unspecified Is this a current diagnosis for this admission?: Yes Plan: The patient was admitted with acute renal failure (creatinine 2.47 with baseline of 0.9) secondary to poor p.o. intake and complicated by metformin, lisinopril, and hydrochlorothiazide. She is admitted to the medical floor. She is provided IV fluid resuscitation. We will avoid nephrotoxic medications. Consider renal imaging if creatinine does not continue to respond to IV fluids. We will monitor with daily chemistries. (2) Hyperkalemia Is this a current diagnosis for this admission?: Yes Plan: Likely secondary to dehydration. EKG does not demonstrate peaked T waves. She was provided Kayexalate while still in the emergency department. She is receiving generous IV fluid resuscitation. We will monitor with serial chemistries. (3) Uremia Is this a current diagnosis for this admission?: Yes Plan: Secondary to acute renal failure related to dehydration/poor p.o. intake. Plan as above. (4) Diabetes Qualifiers: Diabetes mellitus type: type 2 Is this a current diagnosis for this admission?: Yes Plan: Holding metformin and Invokana while inpatient. She is placed on a consistent carb diet. Accu-Cheks before meals and at bedtime with Humalog for sliding scale coverage. (5) Shingles rash Qualifiers: Herpes zoster complications: without complications Qualified Code(s): B02.9 - Zoster without complications Is this a current diagnosis for this admission?: Yes Plan: Healing shingles rash noted to right chest wall. Per patient and family she was treated approximately 2 weeks ago with a medication regimen (unclear if acyclovir versus Valtrex). Tylenol as needed for pain. (6) Dementia Is this a current diagnosis for this admission?: Yes Plan: We will continue patient's home dose Namenda. Provide for patient safety; fall precautions. (7) GERD (gastroesophageal reflux disease) Qualifiers: Esophagitis presence: esophagitis presence not specified Qualified Code(s) : K21.9 - Gastro-esophageal reflux disease without esophagitis Is this a current diagnosis for this admission?: Yes Plan: PPI (8) Weakness Is this a current diagnosis for this admission?: Yes Plan: PT/OT evaluation. Fall precautions. - Time Time Spent with patient: 25-34 minutes Medications reviewed and adjusted accordingly: Yes
[2018-02-24 15:18] LABS: ANION GAP 13 (5-19); CALCIUM 8.9 mg/dL (8.4-10.2); CARBON DIOXIDE 19 mmol/L (22-30); CHLORIDE 109 mmol/L (98-107); GLUCOSE 132 mg/dL (75-110); POTASSIUM 5.1 mmol/L (3.6-5.0); SODIUM 141.2 mmol/L (137-145)
[2018-02-24 15:32] LABS: BLOOD UREA NITROGEN 62 mg/dL (7-20)
[2018-02-24] MEDS ORDERED: VIT E PO SCH (18:00)
[2018-02-24] MEDS ORDERED: VIT C PO SCH (18:00)
[2018-02-24] MEDS ORDERED: COPPER PO SCH (18:00)
[2018-02-24] MEDS ORDERED: VIT A PO SCH (18:00)
[2018-02-24] MEDS ORDERED: [UNRECOGNIZED DRUG - OTHER] PO SCH (18:00)
[2018-02-24] MEDS ORDERED: ZINC PO SCH (18:00)
[2018-02-24] MEDS: SIMVASTATIN 40 MG TABLET PO SCH (22:25)
[2018-02-25 05:29] LABS: ABSOLUTE BASOPHILS # (AUTO) 0.1 10^3/uL (0.0-0.2); ABSOLUTE EOSINOPHILS # (AUTO) 0.3 10^3/uL (0.0-0.6); ABSOLUTE MONOCYTES (AUTO) 0.7 10^3/uL (0.1-1.4); ABSOLUTE NEUT (AUTO) 4.7 10^3/uL (1.7-8.2); EOSINOPHILS % (AUTO) 2.9 % (0-6); HEMATOCRIT 32.7 % (36.0-47.0); LYMPHOCYTES % (AUTO) 34.2 % (13-45); MEAN CORPUSCULAR HEMOGLOBIN 29.9 pg (27.0-33.4); MEAN CORPUSCULAR HGB CONC 33.7 g/dL (32.0-36.0); MEAN CORPUSCULAR VOLUME 89 fl (80-97); MONOCYTES % (AUTO) 8.3 % (3-13); PLATELET COUNT 251 10^3/uL (150-450); RED BLOOD COUNT 3.68 10^6/uL (3.72-5.28); RED CELL DISTRIBUTION WIDTH 13.1 % (11.5-14.0); SEGMENTED NEUTROPHILS % (AUTO) 53.6 % (42-78); TOTAL CELLS COUNTED % (AUTO) 100 %; WHITE BLOOD COUNT 8.8 10^3/uL (4.0-10.5)
[2018-02-25] MEDS: LANSOPRAZOLE 15 MG TAB.RAP.DR PO SCH (05:47)
[2018-02-25 05:56] LABS: ANION GAP 11 (5-19); BLOOD UREA NITROGEN 45 mg/dL (7-20); CARBON DIOXIDE 23 mmol/L (22-30); CHLORIDE 109 mmol/L (98-107); GLUCOSE 79 mg/dL (75-110); POTASSIUM 4.8 mmol/L (3.6-5.0); SODIUM 142.7 mmol/L (137-145)
[2018-02-25] MEDS: HEPARIN SOD (PORCINE) 5,000 UNIT/ML 1 ML SYRINGE SUBCUT SCH ×3 (06:50→21:39)
[2018-02-25] MEDS: MAGNESIUM OXIDE 400 MG TABLET PO SCH ×2 (09:56→18:21)
[2018-02-25] MEDS: MULTIVITAMIN TABLET PO SCH (09:56)
[2018-02-25] MEDS: CHOLECALCIFEROL (D3) 1,000 UNIT TABLET PO SCH (09:56)
[2018-02-25] MEDS: MEMANTINE HCL 10 MG TABLET PO SCH (09:57)
[2018-02-25] MEDS ORDERED: (PENDING PHARMACY ID) (Fenofibrate [Fenofibrate] 160 MG) PO SCH (10:00)
[2018-02-25] MEDS ORDERED: (PENDING PHARMACY ID) (Cholecalciferol (Vitamin D3) [D3-2000] 2,000 UNIT) PO SCH (10:00)
[2018-02-25] MEDS ORDERED: FENOFIBRATE NANOCRYSTALLIZED 145 MG TABLET PO SCH (10:00)
[2018-02-25] MEDS ORDERED: (PENDING PHARMACY ID) (Mirabegron [Myrbetriq] 25 MG) PO SCH (10:00)
[2018-02-25] MEDS ORDERED: NORMAL SALINE 1000 ML 1,000 ML IV PRN (10:28)
[2018-02-25] MEDS ORDERED: METOPROLOL TARTRATE 25 MG TABLET PO ONE (11:00)
--- NOTE | 2018-02-25 12:07 | PDOC PROGRESS REPORT ---
Subjective Progress Note for:: 02/25/18 Subjective:: The patient is an 82-year-old female with a past medical history of dementia, diabetes, hypertension, GERD, irritable bowel syndrome, rheumatic heart disease , recurrent urinary tract infections and recent bronchitis and shingles who was admitted on 01/25/18 for acute renal failure. The patient is seen on morning rounds. She is found resting comfortably in bed on room air. She reports generalized fatigue and weakness and. She states "I' m just not doing well," but is unable to further describe her symptoms. She reports continued right chest wall pain related to recent shingles. She also endorses a nonproductive cough but denies dypnea today. She denies fever, chills, chest pain, palpitations, orthopnea, abdominal pain, nausea, vomiting, diarrhea, constipation, and urinary symptoms. She has no questions or concerns at this time. Reason For Visit: ARF BRONCHITIS Physical Exam Vital Signs: Temp Pulse Resp BP Pulse Ox 97.9 F 85 16 133/57 H 99 02/25/18 07:46 02/25/18 07:46 02/25/18 07:46 02/25/18 07:46 02/25/18 07:46 Intake & Output 02/24/18 02/25/18 02/26/18 06:59 06:59 06:59 Intake Total 2322 Balance 2322 Weight 74.3 kg General appearance: PRESENT: no acute distress, disheveled, hard of hearing, well-developed, well-nourished Head exam: PRESENT: atraumatic, normocephalic Eye exam: PRESENT: conjunctiva pink, EOMI, PERRLA. ABSENT: scleral icterus Ear exam: PRESENT: normal external ear exam Mouth exam: PRESENT: moist, tongue midline Neck exam: ABSENT: carotid bruit, JVD, lymphadenopathy, thyromegaly Respiratory exam: PRESENT: clear to auscultation thiago, symmetrical, unlabored. ABSENT: rales, rhonchi, wheezes Cardiovascular exam: PRESENT: irregular rhythm, +S1, +S2, systolic murmur. ABSENT: diastolic murmur, rubs Pulses: PRESENT: normal dorsalis pedis pul Vascular exam: PRESENT: normal capillary refill GI/Abdominal exam: PRESENT: normal bowel sounds, soft. ABSENT: distended, guarding, mass, organolmegaly, rebound, tenderness Rectal exam: PRESENT: deferred Extremities exam: PRESENT: full ROM. ABSENT: calf tenderness, clubbing, pedal edema Neurological exam: PRESENT: alert, awake, oriented to person, oriented to place , oriented to time, oriented to situation, CN II-XII grossly intact. ABSENT: motor sensory deficit Psychiatric exam: PRESENT: depressed, flat affect, normal mood. ABSENT: homicidal ideation, suicidal ideation Skin exam: PRESENT: dry, warm. ABSENT: cyanosis, intact - resolving shingles rash to right chest wall/skin fold of right breast, rash Results Laboratory Results: 02/25/18 04:05 02/25/18 04:05 02/24/18 02/25/18 02/25/18 14:44 04:05 04:05 WBC 8.8 RBC 3.68 L Hgb 11.0 L Hct 32.7 L MCV 89 MCH 29.9 MCHC 33.7 RDW 13.1 Plt Count 251 Seg Neutrophils % 53.6 Lymphocytes % 34.2 Monocytes % 8.3 Eosinophils % 2.9 Basophils % 1.0 Absolute Neutrophils 4.7 Absolute Lymphocytes 3.0 Absolute Monocytes 0.7 Absolute Eosinophils 0.3 Absolute Basophils 0.1 Sodium 141.2 142.7 Potassium 5.1 H 4.8 Chloride 109 H 109 H Carbon Dioxide 19 L 23 Anion Gap 13 11 BUN 62 H D 45 H Creatinine 1.50 H 1.34 H Est GFR ( Amer) 40 L 46 L Est GFR (Non-Af Amer) 33 L 38 L Glucose 132 H 79 Calcium 8.9 9.0 Impressions: Chest X-Ray 02/23/18 21:02 IMPRESSION: No acute radiographic finding in the chest. Head CT 02/23/18 21:03 IMPRESSION: No acute intracranial hemorrhage or acute territorial infarct. Chronic changes of atrophy and microvascular ischemia. EVIDENCE OF ACUTE STROKE: NO. Assessment & Plan - Diagnosis (1) Acute renal failure Qualifiers: Acute renal failure type: unspecified Qualified Code(s): N17.9 - Acute kidney failure, unspecified Is this a current diagnosis for this admission?: Yes Plan: Improved; BUN and creatinine trending down. The patient was admitted with acute renal failure (creatinine 2.47 with baseline of 0.9) secondary to poor p.o. intake and complicated by metformin, lisinopril, and hydrochlorothiazide. She is admitted to the medical floor. She is provided IV fluid resuscitation. We will avoid nephrotoxic medications. Consider renal imaging if creatinine does not continue to respond to IV fluids. We will monitor with daily chemistries. (2) Hyperkalemia Is this a current diagnosis for this admission?: Yes Plan: Resolved; Likely secondary to dehydration. EKG does not demonstrate peaked T waves. She was provided Kayexalate x1. She is receiving generous IV fluid resuscitation. We will monitor with serial chemistries. (3) Uremia Is this a current diagnosis for this admission?: Yes Plan: Improving; Secondary to acute renal failure related to dehydration/poor p.o. intake. Plan as above. (4) Diabetes Qualifiers: Diabetes mellitus type: type 2 Is this a current diagnosis for this admission?: Yes Plan: Glucose 42-141; patient may not require medications for DM. Will asses HgA1c; < 8.0% is appropriate for patient with her age/life expectancy. Holding metformin and Invokana while inpatient. She is placed on a consistent carb diet. Accu-Cheks before meals and at bedtime with Humalog for sliding scale coverage. (5) Shingles rash Qualifiers: Herpes zoster complications: without complications Qualified Code(s): B02.9 - Zoster without complications Is this a current diagnosis for this admission?: Yes Plan: Healing shingles rash noted to right chest wall. Per patient and family she was treated approximately 2 weeks ago (unclear if acyclovir versus Valtrex). Tylenol as needed for pain. (6) GERD (gastroesophageal reflux disease) Qualifiers: Esophagitis presence: esophagitis presence not specified Qualified Code(s) : K21.9 - Gastro-esophageal reflux disease without esophagitis Is this a current diagnosis for this admission?: Yes Plan: PPI (7) Weakness Is this a current diagnosis for this admission?: Yes Plan: PT/OT evaluation. Fall precautions. (8) Dementia Is this a current diagnosis for this admission?: Yes Plan: Patient with flat affect and poor p.o. intake. Possibly coinciding depression. Will monitor patient's mood and p.o. intake; consider low-dose mirtazapine. We will continue patient's home dose Namenda. Provide for patient safety; fall precautions. (9) PVC (premature ventricular contraction) Is this a current diagnosis for this admission?: Yes Plan: Patient is noted to have frequent PVCs and intermittent bigeminy. BMP is appropriate. Will trial low dose metoprolol. - Time Time Spent with patient: 25-34 minutes Medications reviewed and adjusted accordingly: Yes Anticipated discharge: Home Within: within 48 hours - Plan Summary Plan Summary: Ultimately, the plan is for the patient to be discharged to home with home PT/ OT services.
[2018-02-25] MEDS ORDERED: 1/2 NORMAL SALINE 1,000 ML IV PRN (12:08)
[2018-02-25] MEDS ORDERED: ONDANSETRON HCL INJ/PF 4 MG/2 ML SDV IV PRN (15:00)
[2018-02-25] MEDS: NORMAL SALINE 1000 ML 1,000 ML IV PRN (18:21)
[2018-02-25] MEDS: SIMVASTATIN 40 MG TABLET PO SCH (21:39)
[2018-02-25] MEDS: METOPROLOL TARTRATE 25 MG TABLET PO SCH (21:39)
[2018-02-26] MEDS: NORMAL SALINE 1000 ML 1,000 ML IV SCH (02:45)
[2018-02-26] MEDS: HEPARIN SOD (PORCINE) 5,000 UNIT/ML 1 ML SYRINGE SUBCUT SCH ×3 (05:14→21:53)
[2018-02-26] MEDS: LANSOPRAZOLE 15 MG TAB.RAP.DR PO SCH (05:14)
[2018-02-26 05:15] LABS: HEMOGLOBIN 11.1 g/dL (12.0-15.5); MEAN CORPUSCULAR HEMOGLOBIN 29.2 pg (27.0-33.4); MEAN CORPUSCULAR HGB CONC 32.6 g/dL (32.0-36.0); MEAN CORPUSCULAR VOLUME 90 fl (80-97); PLATELET COUNT 271 10^3/uL (150-450); RED BLOOD COUNT 3.79 10^6/uL (3.72-5.28); RED CELL DISTRIBUTION WIDTH 13.2 % (11.5-14.0); WHITE BLOOD COUNT 8.7 10^3/uL (4.0-10.5)
[2018-02-26 05:32] LABS: ANION GAP 11 (5-19); BLOOD UREA NITROGEN 36 mg/dL (7-20); CALCIUM 8.8 mg/dL (8.4-10.2); CARBON DIOXIDE 22 mmol/L (22-30); CHLORIDE 108 mmol/L (98-107); GLUCOSE 116 mg/dL (75-110); POTASSIUM 4.6 mmol/L (3.6-5.0); SODIUM 140.5 mmol/L (137-145)
[2018-02-26] MEDS: MAGNESIUM OXIDE 400 MG TABLET PO SCH ×2 (09:22→19:44)
[2018-02-26] MEDS: MULTIVITAMIN TABLET PO SCH (09:22)
[2018-02-26] MEDS: MEMANTINE HCL 10 MG TABLET PO SCH (09:22)
[2018-02-26] MEDS: CHOLECALCIFEROL (D3) 1,000 UNIT TABLET PO SCH (09:22)
[2018-02-26] MEDS: METOPROLOL TARTRATE 25 MG TABLET PO SCH ×2 (09:22→21:53)
--- NOTE | 2018-02-26 20:40 | PDOC PROGRESS REPORT ---
Subjective Progress Note for:: 02/26/18 Subjective:: ROHIT BERGMAN is a 82 y.o. female with a PMH of dementia, diabetes, HTN, GERD, IBS, rheumatic heart disease, recurrent UTI and recent bronchitis and shingles who was admitted on 02/24/2018 for acute renal failure. Patient was seen this morning on rounds, she is resting comfortably in bed on room air. She states that she is feeling much better today, and she is able to tolerate getting out of bed to bedside recliner to eat her meals. She also reports that she was able to work with physical therapy yesterday and ambulate from her bed to the hallway. The patient denies right chest wall pain secondary to recent shingles. She denies fever, chills, shortness of breath, nausea or vomiting. Reason For Visit: ARF BRONCHITIS Physical Exam Vital Signs: Temp Pulse Resp BP Pulse Ox 98.5 F 83 16 104/48 L 97 02/26/18 16:00 02/26/18 16:00 02/26/18 16:00 02/26/18 16:00 02/26/18 16:00 Intake & Output 02/25/18 02/26/18 02/27/18 06:59 06:59 06:59 Intake Total 2322 3482 Balance 2322 3482 Weight 74.3 kg 74.3 kg General appearance: PRESENT: no acute distress Eye exam: PRESENT: conjunctiva pink, EOMI, PERRLA Mouth exam: PRESENT: moist Teeth exam: PRESENT: poor dentation Neck exam: PRESENT: full ROM Respiratory exam: PRESENT: clear to auscultation thiago, symmetrical, unlabored Cardiovascular exam: PRESENT: RRR, +S1, +S2 Pulses: PRESENT: normal radial pulses, normal dorsalis pedis pul GI/Abdominal exam: PRESENT: normal bowel sounds, soft. ABSENT: tenderness Rectal exam: PRESENT: deferred Extremities exam: PRESENT: full ROM, pedal edema, other - bilateral venous stasis ulcers Musculoskeletal exam: PRESENT: ambulatory, full ROM Neurological exam: PRESENT: alert, awake, oriented to person, oriented to place , oriented to time, oriented to situation Psychiatric exam: PRESENT: appropriate affect Skin exam: PRESENT: dry, intact, normal color, warm Results Laboratory Results: 02/26/18 04:00 02/26/18 04:00 02/26/18 02/26/18 04:00 04:00 WBC 8.7 RBC 3.79 Hgb 11.1 L Hct 34.0 L MCV 90 MCH 29.2 MCHC 32.6 RDW 13.2 Plt Count 271 Sodium 140.5 Potassium 4.6 Chloride 108 H Carbon Dioxide 22 Anion Gap 11 BUN 36 H Creatinine 1.22 Est GFR ( Amer) 51 L Est GFR (Non-Af Amer) 42 L Glucose 116 H Calcium 8.8 Impressions: Chest X-Ray 02/23/18 21:02 IMPRESSION: No acute radiographic finding in the chest. Head CT 02/23/18 21:03 IMPRESSION: No acute intracranial hemorrhage or acute territorial infarct. Chronic changes of atrophy and microvascular ischemia. EVIDENCE OF ACUTE STROKE: NO. Status: Imported from PACS Assessment & Plan - Diagnosis (1) Acute renal failure Qualifiers: Acute renal failure type: unspecified Qualified Code(s): N17.9 - Acute kidney failure, unspecified Is this a current diagnosis for this admission?: Yes Plan: Improved; BUN 35 and creatinine 1.22 - trending down. The patient was admitted with acute renal failure (creatinine 2.47 with baseline of 0.9) secondary to poor p.o. intake and complicated by metformin, lisinopril, and hydrochlorothiazide. Admit to the medical floor. Maintenance IVF. We will avoid nephrotoxic medications. Consider renal imaging if creatinine does not continue to respond to IV fluids. We will monitor with daily chemistries. (2) Dementia Is this a current diagnosis for this admission?: Yes Plan: Patient with flat affect and poor p.o. intake. Possibly coinciding depression. Daughter at the bedside to encourage PO intake. Continue home dose Namenda. Provide for patient safety; fall precautions. (3) Diabetes Qualifiers: Diabetes mellitus type: type 2 Is this a current diagnosis for this admission?: Yes Plan: Glucose 42-141; patient may not require medications for DM. HgA1c 6.5; <8.0% is appropriate for patient with her age/life expectancy. Very likely that the patient will not require PO DM medication post discharge Holding metformin and Invokana while inpatient. She is placed on a consistent carb diet. Accu-Cheks before meals and at bedtime with Humalog for sliding scale coverage. (4) PVC (premature ventricular contraction) Is this a current diagnosis for this admission?: Yes Plan: Patient is noted to have frequent PVCs and intermittent bigeminy. BMP is appropriate. Cardiology was consulted, Dr. Barr recommends continuing low dose metoprolol. (5) Shingles rash Qualifiers: Herpes zoster complications: without complications Qualified Code(s): B02.9 - Zoster without complications Is this a current diagnosis for this admission?: Yes Plan: Healing shingles rash noted to right chest wall. Per patient and family she was treated approximately 2 weeks ago (unclear if acyclovir versus Valtrex). Contact isolation per Infection Control Tylenol as needed for pain. (6) Uremia Is this a current diagnosis for this admission?: Yes Plan: Improving; Secondary to acute renal failure related to dehydration/poor p.o. intake. If GFR increases to >50 and Creatinine drops closer to baseline (<1.1), consider discharge home tomorrow Plan as above. (7) Weakness Is this a current diagnosis for this admission?: Yes Plan: PT/OT evaluation, patient was able to ambulate OOB to the hallway with physical therapy Fall precautions. - Time Time Spent with patient: 15-24 minutes Medications reviewed and adjusted accordingly: Yes Anticipated discharge: Home Within: within 24 hours - Inpatient Certification Based on my medical assessment, after consideration of the patient's comorbidities, presenting symptoms, or acuity I expect that the services needed warrant INPATIENT care.: Yes I certify that my determination is in accordance with my understanding of Medicare's requirements for reasonable and necessary INPATIENT services [42 CFR 412.3e].: Yes Medical Necessity: Risk of Complication if Not Cared For in Hospital - Plan Summary Plan Summary: At this time, the plan is to continue maintenance IVF and likely discharge tomorrow morning
[2018-02-26] MEDS: SIMVASTATIN 40 MG TABLET PO SCH (21:53)
[2018-02-27] MEDS: NORMAL SALINE 1000 ML 1,000 ML IV PRN (03:43)
[2018-02-27 05:25] LABS: ANION GAP 9 (5-19); BLOOD UREA NITROGEN 31 mg/dL (7-20); CALCIUM 8.9 mg/dL (8.4-10.2); CARBON DIOXIDE 22 mmol/L (22-30); CHLORIDE 107 mmol/L (98-107); GLUCOSE 120 mg/dL (75-110); POTASSIUM 4.5 mmol/L (3.6-5.0); SODIUM 138.3 mmol/L (137-145)
--- NOTE | 2018-02-27 05:55 | CONSULTATION REPORT E ---
Consultation Report NAME: ROHIT BERGMAN : 1935 AGE: 82Y DATE: 02/26/2018 528 A TO: BRIAN ALVAREZ M.D. FROM: JASMINE WELLS M.D. Requesting Physician REASON FOR CONSULTATION: History of PVC in this patient. HISTORY OF PRESENT ILLNESS: The patient is an 82-year-old female and although she carries the diagnosis of dementia, she is able to answer questions appropriately. She has a history of hypertension, diabetes mellitus, GERD, irritable bowel syndrome and was recently being treated for bronchitis and herpes zoster/shingles infection. The patient states since the last 48 to 72 hours, she has been having decreased p.o. intake and decreased fluid intake and she came to the emergency room with generalized weakness. She was found to have leukocytosis, acute renal failure with GFR of 19 mL and also potassium 5.3. At that time, the patient also was having ectopy in the form of frequent PVC and trigeminy, but the patient was asymptomatic from that. The patient denies any dizziness or syncope or near syncope. There is no past history of syncope. She has no clearcut anginal symptoms. She has no PND, orthopnea. She denies any leg edema. She was found to be dehydrated and this was due to poor p.o. intake. Note, the patient's GFR on 08/20/2017 during her last admission, estimated GFR was 50 mL/min. Hence, this is a substantial decrease, most likely secondary to the patient poor intake. PAST MEDICAL HISTORY: 1. History of hypertension. 2. History of heart murmur. 3. History of diabetes mellitus type 2. 4. There is no history of NJ or coronary artery disease. 5. There is no history of anginal symptoms or congestive heart failure. 6. She also has history of GERD and dementia. 7. There is no history of thyroid disease. 8. No history of collagen vascular disease. 9. No history of prior cardiac arrhythmia, syncope or near syncope. 10. No history of TIA or CVA. 11. No history of seizures. PAST SURGICAL HISTORY: 1. Hysterectomy. 2. Cholecystectomy. MEDICATIONS: 1. Tylenol 650 mg p.o. q.4 hours p.r.n. 2. Vitamin D 2000 units p.o. daily. 3. Hypoglycemic precautions with Glutose 40% gel, 15 grams p.o. and 30 grams p.o., respectively p.r.n. 4. Dextrose 50%, 12.5 grams IV and 25 grams IV p.r.n. hypoglycemia. 5. Glucovan 1 mg IM p.r.n. hypoglycemia. 6. Heparin 5000 units subcutaneously. 7. *------* AC nightly and 3 times a day with sliding scale regular insulin as per scale. 8. Normal saline at 125 mL/hr. 9. Magnesium oxide 400 mg p.o. b.i.d. 10. Prevacid 15 mg p.o. every morning. 11. Namenda 5 mg p.o. daily. 12. Lopressor 12.5 mg p.o. q.12 hours. 13. Myrbetriq 25 mg p.o. daily. 14. Multivitamin 1 tablet p.o. daily. 15. Zofran 4 mg as needed q.8 hours p.r.n. 16. Zocor 40 mg p.o. nightly. 17. Vitamin A, vitamin C, vitamin E, zinc and copper 1 tablet p.o. b.i.d. SOCIAL HISTORY: The patient has never smoked. There is no history of ETOH abuse. The patient is a F[employer]. Her daughter, Ms. Maryann Borrego, is her surrogate healthcare decision-maker. FAMILY HISTORY: Positive for history of cancer, but negative for coronary artery disease or hypertension. ALLERGIES: PENICILLIN. REVIEW OF SYSTEMS: CONSTITUTIONAL: Denies any fever, chills or rigors. Complains of generalized weakness and fatigue. INFECTION DISEASE: The patient treated for shingles/herpes zoster with right chest wall lesion healing. The lesion was due to the shingles. HEAD: The patient complains of headaches, but no history of head injury. EYES: No history of amblyopia or diplopia. No history of amaurosis fugax. EARS: No history of hearing loss. No history of tinnitus. No history of recurrent ear infection. NOSE: No history of nosebleed. No history of nasal polyps. No history of hay fever. MOUTH: No history of altered taste sensation. Complains of mouth being dry. No taste for any food in the mouth. THROAT: No history of odynophagia or dysphagia. No history of recurrent sore throat. SKIN: No history of urticaria, ecchymoses. No skin rashes. No pruritus. No history of yellowish discoloration of the skin. NECK: No history of neck pain. No history of swelling in the neck. LUNGS: No history of wheezing. No history of asthma or COPD. The patient is recently being treated for bronchitis. The patient is not a smoker and no history of sleep apnea. No history of pulmonary embolism. She has right-sided sharp breaking pain on the right side of the chest at the site of her lesion due to her healing shingles. CARDIAC: History of hypertension. No history of NJ or anginal symptoms. No prior history of cardiac arrhythmia of any significance. The patient is noted to have PVCs, most likely due to irritability due to her hyperkalemia and metabolic acidosis. The PVCs are much rarer now. The patient has no symptoms from that. There is no history of syncope. No history of congestive heart failure. No history leg edema. No history of PND or orthopnea. GASTROINTESTINAL: History of GERD present. No history of GI bleed. History of irritable bowel syndrome present. No history of fatty food intolerance. Denies any abdominal pain. ENDOCRINE: History of diabetes mellitus. No history of polydipsia or polyuria. No history of thyroid disease. MUSCULOSKELETAL: History of arthritis present, but no history colitis or collagen vascular disease. RENAL: The patient was admitted with acute renal failure with hyperkalemia. This is being improved with hydration. There are no symptoms of UTI and no history of hematuria, pyuria or dysuria. The patient has a prior history of recurrent urinary tract infections. CENTRAL NERVOUS SYSTEM: No history of TIA or CVA. Complains of headache. No history of seizures or history of migraines. The patient's headaches have been recent. It comes and goes and the patient is very vague about it. PSYCHIATRIC: History of dementia present, which seems to be mild. No history of anxiety or depression. VASCULAR: No history of calf or buttock claudication. No history of DVT. HEMATOLOGICAL: No history of bleeding diathesis. No history of clotting disorders. PHYSICAL EXAMINATION: GENERAL: The patient is well built and well nourished, pleasant and in no acute distress. VITAL SIGNS: She is afebrile with a temperature of 97.9 degrees Fahrenheit. Pulse 70 beats/minute, blood pressure 128/69, respirations 17 per minute, O2 sat 99% on room air. HEENT: Head is atraumatic, normocephalic. Eyes: Pupils are equal, round, regular, reactive to light and accommodation. Extraocular movements are normal. There is no conjunctival pallor. There is no scleral icterus. Ears: Tympanic membranes are intact. External auditory canals are clear. Nose: There is no deviated nasal septum. There is no inflammation of the nasal mucous membranes. Mouth: Mucous membranes of the mouth are moist. Tongue is moist. There are no ulcers in the mouth. There is no bleeding from the gums. Throat: There is no redness of the oropharynx. There are no exudates in the throat. SKIN: There are no skin rashes or skin lesions. There is no petechia or ecchymosis. Note, there is a healing lesion of shingles in the right chest wall. NECK: Supple. There is no JVD. There is no lymphadenopathy. There is no thyromegaly. Carotids are equal. There is no bruit. Trachea central. LUNGS: Show a few scattered rhonchi without any rales or CHF. HEART: S1 and S2 heard. There is no S3 gallop. There is no S4 gallop. There is a systolic murmur in the left sternal border on the apex. There is no rub. ABDOMEN: Soft, nontender. There is no hepatosplenomegaly. Bowel sounds are well heard. There are no tender areas or masses. EXTREMITIES: Femorals are diminished. There are no femoral bruits. Leg pulses are diminished. There is no DVT or cellulitis. There is no pedal edema. There is no calf tenderness. CENTRAL NERVOUS SYSTEM: The patient is conscious, awake, alert, oriented x3 at present without any focal deficits. PSYCHIATRIC: The patient's at present does not appear to be agitated or depressed. At present, the dementia does not seem to be off any significance. DIAGNOSTICS: The patient's chest x-ray shows no acute radiographic findings. The patient's EKG shows ventricular couplets, sinus tachycardia. The patient's head CT for her headache shows the ventricles are prominent. No acute intracranial abnormalities or infarct. Chronic changes of atrophy and ischemia. No evidence of acute stroke. The patient's sodium is 140.5, potassium 4.6, chloride 108, CO2 22, BUN 26, creatinine 1.22, GFR 30-42 mL, which has come up from 19 mL. Glucose 116, calcium 8.8. Hemoglobin A1c slightly elevated at 6.5. White count 8700, hemoglobin 11.1, hematocrit 34, platelet count 271,000. IMPRESSION: 1. Frequent premature ventricular contractions, trigeminy and ventricular couplets, most likely due to myocardial excitability due to the patient's acute renal failure, and hyperkalemia and also, metabolic acidosis. These seem to be resolving. Note, the patient had an echocardiography in 08/2017, which showed left ventricle was normal, mild contractility, left ventricular hypertrophy, ejection fraction 40%, left ventricular systolic function normal, Doppler measurements suggest impaired left ventricular relaxation with associated mild LV diastolic dysfunction. The left ventricular wall motion was normal. There was no thrombus. There was trace mitral regurgitation with no mitral valve stenosis. There was mild to moderate aortic stenosis with peak gradient of 39 mmHg. There was no left ventricular outflow tract obstruction. There was no aortic regurgitation present. There was no tricuspid stenosis. There was no tricuspid regurgitation. Unable to calculate ventricular systolic pressure due to interruption. There was no pulmonary coronary stenosis. There was no pulmonary valvular regurgitation. There was no pericardial effusion. 2. Acute renal failure, secondary to dehydration. 3. Hyperkalemia. This is resolving with treatment. 4. Bronchitis. Continue current therapy. 5. Herpes zoster infection, resolving. As per the patient and patient's daughter, these lesions are now more contagious. 6. Hypertension, blood pressure well controlled. 7. Diabetes mellitus. 8. Gastroesophageal reflux disease. 9. Irritable bowel syndrome. 10. Dementia. At present the patient seems to be oriented x3. 11. Aortic stenosis. Does not seem to be very significant. At the most, moderate. RECOMMENDATIONS: Agree with continuing the patient on metoprolol. Note, the patient is low risk in view of the patient's echocardiogram within the last 6 months showing that the patient's LV ejection fraction is normal and the patient has no history of syncope. Would recommend later get a 30-day event monitor as an outpatient. Continue her other current medications. Would recommend treating the patient with Xopenex for her bronchitis with current antibiotics. Note, the patient's medications have been reviewed. Old chart and old records have been review by me. Her EKG was reviewed and interpreted by me. The case was discussed with the hospitalist taking care of the patient. Also, I discussed with the patient and the patient's daughter at the request of the patient. Note, the patient wants to change her primary care physician. This has also been discussed with the attending physician on record. I will sign off the case. Please consult me or ask me to see the patient again if needed. The patient desires to followup with me. Also, the daughter wants the patient to be followed up by me and hence, we will set up the patient for outpatient to follow up for a 30-day event monitor. At present since the echo is around 6 months, no need for a repeat echo. Would continue beta blockers, continue other medications. Continue hydration. Note, 55 minutes spent on the patient with more than 50% of the time spent on direct patient care. Medical decision-making is of moderate complexity. As mentioned, I will sign off the care. Please call me if my services are needed. Thank you for this consultation. DICTATING PHYSICIAN: BRIAN ALVAREZ M.D. [id number] Y#: [id number] ID: [id number] JOB#: [id number] ACCT: [id number] cc:BRIAN ALVAREZ M.D. >
[2018-02-27] MEDS: HEPARIN SOD (PORCINE) 5,000 UNIT/ML 1 ML SYRINGE SUBCUT SCH (05:56)
[2018-02-27] MEDS: LANSOPRAZOLE 15 MG TAB.RAP.DR PO SCH (05:56)
[2018-02-27] MEDS: MULTIVITAMIN TABLET PO SCH (11:02)
[2018-02-27] MEDS: MEMANTINE HCL 10 MG TABLET PO SCH (11:02)
[2018-02-27] MEDS: CHOLECALCIFEROL (D3) 1,000 UNIT TABLET PO SCH (11:03)
[2018-02-27] MEDS: METOPROLOL TARTRATE 25 MG TABLET PO SCH (11:03)
[2018-02-27] MEDS: MAGNESIUM OXIDE 400 MG TABLET PO SCH (11:03)
[2018-02-27 15:25] VITALS: BP 131/65
--- NOTE | 2018-03-05 14:37 | PDOC DISCHARGE SUMMARY ---
General - Admit/Disc Date/PCP Admission Date/Primary Care Provider: 02/24/18 00:56 KASIE NAVA Discharge Date: 02/27/18 - Discharge Diagnosis (1) Acute renal failure Is this a current diagnosis for this admission?: Yes (2) Dementia Is this a current diagnosis for this admission?: Yes (3) Diabetes Is this a current diagnosis for this admission?: Yes (4) PVC (premature ventricular contraction) Is this a current diagnosis for this admission?: Yes (5) Shingles rash Is this a current diagnosis for this admission?: Yes (6) Uremia Is this a current diagnosis for this admission?: Yes (7) Weakness Is this a current diagnosis for this admission?: Yes - Additional Information Resuscitation Status: Full Code Discharge Diet: Diabetic Discharge Activity: Activity As Tolerated, Balance Activity w/Rest Prescriptions: Lisinopril 10 mg PO DAILY #30 tablet Metoprolol Tartrate [Lopressor 25 mg Tablet] 12.5 mg PO Q12 #60 tablet Home Medications: Cholecalciferol (Vitamin D3) [D3-2000] 2,000 unit PO DAILY 02/24/18 Fenofibrate 160 mg PO DAILY 02/24/18 Memantine HCl [Namenda 10 mg Tablet] 10 mg PO QHS 02/24/18 Mirabegron [Myrbetriq] 25 mg PO DAILY 02/24/18 Multivitamin [Multivitamins] 1 each PO DAILY 02/24/18 Omeprazole 20 mg PO DAILY 02/24/18 Simvastatin [Zocor 40 mg Tablet] 40 mg PO QHS 02/24/18 Vit A/Vit C/Vit E/Zinc/Copper [Preservision Areds Softgel] 1 tab PO BID Lisinopril 10 mg PO DAILY #30 tablet 02/27/18 Magnesium Oxide [Mag-Ox 400 mg Tablet] 400 mg PO BID tablet 02/27/18 Memantine HCl [Namenda 10 mg Tablet] 5 mg PO DAILY tablet 02/27/18 Metoprolol Tartrate [Lopressor 25 mg Tablet] 12.5 mg PO Q12 #60 tablet 02/27/18 History of Present Illness History of Present Illness: ROHIT BERGMAN is a 82 year old female with a history of dementia, diabetes, hypertension, GERD, irritable bowel syndrome, rheumatic heart disease, recurrent urinary tract infection and recent bronchitis and shingles. Patient presents with 48 hours of fatigue and poor p.o. intake prompting evaluation emergency room where she is found to have leukocytosis, acute renal failure and hyperkalemia. She started on IV fluids refer the hospitalist for admission. Patient denies pain with exception to the right chest wall were a shingles rash appears healing. Patient admits anorexia stating nothing tastes good. She denies constipation, diarrhea, dysuria or shortness of breath. Hospital Course Hospital Course: 82-year-old female who presented to the emergency department with weakness. EKG showed normal sinus rhythm with PVCs, no acute infarction or ischemia. Chest x-ray benign. Head CT negative, only showing age-related atrophy and microvascular changes. She was admitted with acute renal failure (creatinine 2.47 with baseline of 0.9) secondary to poor p.o. intake and complicated by metformin, lisinopril, and hydrochlorothiazide. She was admitted to the medical floor on maintenance IVF. Over the course of 3 days, her creatinine improved 2.47 ->1.2 with continued hydration. While she was inpatient her blood glucose levels were between 42-141. HgA1c 6.5; <8.0% being appropriate for a patient with her age/life expectancy. Her PO DM medications were on hold while in the hospital, she required minimal sliding scale coverage. Cardiology was consulted because the patient was noted to have frequent PVCs and intermittent bigeminy on telemetry. There were no significant electrolyte abnormalities on her blood work. Dr. Godinez recommended low-dose metoprolol which was continued post discharge. Ultimately, the patient was discharged home after 3 days in the hospital. She was instructed to stop taking her oral diabetes medication and follow-up with her primary care doctor regarding diabetes management. The patient was previously taking a combination drug lisinopril-HCTZ. The HCTZ likely contributed to her dehydration and acute renal failure, so the patient was advised to stop taking this medication. She was provided a prescription for Lisinopril for her BP and a new prescription for metoprolol to control her frequent PVCs. Physical Exam Vital Signs: Temp Pulse Resp BP Pulse Ox 98.6 F 83 14 131/65 H 99 02/27/18 15:19 02/27/18 15:19 02/27/18 15:19 02/27/18 15:19 02/27/18 15:19 Results Laboratory Results: 02/26/18 04:00 02/27/18 04:00 Impressions: Chest X-Ray 02/23/18 21:02 IMPRESSION: No acute radiographic finding in the chest. Head CT 02/23/18 21:03 IMPRESSION: No acute intracranial hemorrhage or acute territorial infarct. Chronic changes of atrophy and microvascular ischemia. EVIDENCE OF ACUTE STROKE: NO. Status: Imported from PACS Qualifiers - * PATIENT BEING DISCHARGED WITH ANY OF THE FOLLOWING DIAGNOSIS: No Plan Time Spent: Less than 30 Minutes
== END 2018-02-27 15:55 | disposition home or self-care (01) | DRG 684 ==
LOC: ER 20:37 → EH 02-24 00:56 → 5 02-24 13:28
PROVIDERS: ADMIT Internal Medicine; ATTEND Internal Medicine
DX: N17.9 Acute kidney failure, unspecified (principal); B02.9 Zoster without complications; E87.5 Hyperkalemia; E11.9 Type 2 diabetes mellitus without complications; I10 Essential (primary) hypertension; E78.5 Hyperlipidemia, unspecified; K21.9 Gastro-esophageal reflux disease without esophagitis; I49.3 Ventricular premature depolarization; J40 Bronchitis, not specified as acute or chronic; K58.9 Irritable bowel syndrome, unspecified; T38.3X5A Adverse effect of insulin and oral hypoglycemic [antidiabetic] drugs, initial encounter; T46.4X5A Adverse effect of angiotensin-converting-enzyme inhibitors, initial encounter; T50.2X5A Adverse effect of carbonic-anhydrase inhibitors, benzothiadiazides and other diuretics, initial encounter; Y92.009 Unspecified place in unspecified non-institutional (private) residence as the place of occurrence of the external cause; F03.90 Unspecified dementia, unspecified severity, without behavioral disturbance, psychotic disturbance, mood disturbance, and anxiety; Z79.84 Long term (current) use of oral hypoglycemic drugs; Z79.899 Other long term (current) drug therapy
CPT/HCPCS: 36415; 70450; 71045; 80048; 80053; 81001; 82550; 82553; 82962; 83036; 83735; 84443; 84484; 85025; 85027; 93005; 93010; 96360; 96361; 99285; G8978-GP; G8979-GP; J1644; J3490; J7030

== ENCOUNTER → 2018-09-16 | Outpatient (CLI) | payer MEDICARE, OTHER ==
[2018-09-16 09:50] LABS: ALANINE AMINOTRANSFERASE 17 U/L (9-52); ALBUMIN 3.8 g/dL (3.5-5.0); ALKALINE PHOSPHATASE 42 U/L (38-126); ASPARTATE AMINO TRANSFERASE 22 U/L (14-36); BILIRUBIN,DIRECT 0.2 mg/dL (0.0-0.4); BILIRUBIN,TOTAL 0.4 mg/dL (0.2-1.3); CHOLESTEROL 154.41 mg/dL (0-200); TOTAL PROTEIN 6.3 g/dL (6.3-8.2); TRIGLYCERIDES 185 mg/dL (<150)
[2018-09-16 10:01] LABS: DIRECT LDL 92 mg/dL (<100)
[2018-09-16 11:06] LABS: ALANINE AMINOTRANSFERASE 17 U/L (9-52); ALBUMIN 3.8 g/dL (3.5-5.0); ALKALINE PHOSPHATASE 42 U/L (38-126); ASPARTATE AMINO TRANSFERASE 22 U/L (14-36); BILIRUBIN,DIRECT 0.2 mg/dL (0.0-0.4); BILIRUBIN,TOTAL 0.4 mg/dL (0.2-1.3); TOTAL PROTEIN 6.3 g/dL (6.3-8.2)
[2018-09-16 11:21] LABS: ANION GAP 12 (5-19); BLOOD UREA NITROGEN 29 mg/dL (7-20); CALCIUM 9.7 mg/dL (8.4-10.2); CARBON DIOXIDE 27 mmol/L (22-30); CHLORIDE 106 mmol/L (98-107); GLUCOSE 132 mg/dL (75-110); SODIUM 144.7 mmol/L (137-145)
[2018-09-16 11:25] LABS: ABSOLUTE BASOPHILS # (AUTO) 0.1 10^3/uL (0.0-0.2); ABSOLUTE EOSINOPHILS # (AUTO) 0.2 10^3/uL (0.0-0.6); ABSOLUTE LYMPHOCYTES (AUTO) 1.6 10^3/uL (0.5-4.7); ABSOLUTE MONOCYTES (AUTO) 0.6 10^3/uL (0.1-1.4); BASOPHILS % (AUTO) 1.4 % (0-2); EOSINOPHILS % (AUTO) 2.4 % (0-6); HEMATOCRIT 32.8 % (36.0-47.0); MEAN CORPUSCULAR HGB CONC 33.4 g/dL (32.0-36.0); MEAN CORPUSCULAR VOLUME 90 fl (80-97); MONOCYTES % (AUTO) 8.7 % (3-13); PLATELET COUNT 232 10^3/uL (150-450); RED BLOOD COUNT 3.65 10^6/uL (3.72-5.28); RED CELL DISTRIBUTION WIDTH 13.8 % (11.5-14.0); SEGMENTED NEUTROPHILS % (AUTO) 62.5 % (42-78); TOTAL CELLS COUNTED % (AUTO) 100 %; WHITE BLOOD COUNT 6.4 10^3/uL (4.0-10.5)
== END ==
LOC: LAB 08:01
PROVIDERS: ATTEND Specialist
DX: I12.9 Hypertensive chronic kidney disease with stage 1 through stage 4 chronic kidney disease, or unspecified chronic kidney disease (principal); E08.29 Diabetes mellitus due to underlying condition with other diabetic kidney complication; N18.9 Chronic kidney disease, unspecified; I49.3 Ventricular premature depolarization; R01.1 Cardiac murmur, unspecified; Z79.899 Other long term (current) drug therapy
CPT/HCPCS: 36415; 80053; 80061; 80076; 83036; 85025

== ENCOUNTER → 2019-06-26 | Outpatient (CLI) | payer MEDICARE, OTHER ==
--- NOTE | 2019-06-26 10:15 | WOMENS IMAGING REPORT ---
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 TECHNIQUE: Dual-Energy X-ray Absorptiometry (DEXA) of the AP Spine and Hip. LIMITATIONS: None. FINDINGS: LUMBAR SPINE: The bone mineral density (BMD) measured from L1-L4 in the AP projection correlates with a T-score of -1.2, which is osteopenic as defined by the World Health Organization. BMD Change vs Baseline: N/A HIP: The bone mineral density (BMD) measured in the left femoral neck at the hip correlates with a T-score of -2.4, which is osteopenic as defined by the World Health Organization. BMD Change vs Baseline: N/A 10 year Fracture Risk Assessment: Major Osteoporotic Fracture: 15% Hip Fracture: 5% IMPRESSION: 1. LUMBAR SPINE WHO CLASSIFICATION: Osteopenic 2. HIP WHO CLASSIFICATION: Osteopenic OVERALL ASSESSMENT: WHO CLASSIFICATION: Osteopenic COMMENT: The World Health Organization defines low BMD as follows: T-score: Normal: Greater than -1.0 Osteopenia: Between -1.0 and -2.5 Osteoporosis: Less than -2.5 without fractures Established osteoporosis: Less than -2.5 with fractures In general, you may wish to consider: Diagnosis Treatment Follow-up DEXA Normal BMD Prevention 2-3 years Osteopenia Prevention/Therapy 1-2 years Osteoporosis Therapy Yearly TECHNICAL DOCUMENTATION: JOB ID: [id number] [employer]- All Rights Reserved Reading location - IP/workstation name: [email or web address]
== END ==
LOC: WI 08:05
PROVIDERS: ATTEND Family Medicine
DX: M81.0 Age-related osteoporosis without current pathological fracture (principal)
CPT/HCPCS: 77080

== ENCOUNTER 2019-08-11 07:09 | Day surgery (SDC) | payer MEDICARE, OTHER ==
[2019-08-11] MEDS ORDERED: PROPOFOL INJ 200 MG/20 ML VIAL IV ONE (07:57)
[2019-08-11] MEDS ORDERED: LIDOCAINE 0.5% INJ-PF (5 MG/ML) 50 ML SDV ONE (07:57)
[2019-08-11 08:59] VITALS: BP 137/69
--- NOTE | 2019-08-11 12:09 | Operative Report ---
Operative Report DATE OF SURGERY: 08/11/19 Operative Report: The risks, benefits and alternatives of the procedure including the risk of bleeding, perforation requiring surgery have been explained to the patient in detail and informed consent has been obtained. The patient is taken back to the endoscopy suite and placed in a left, lateral decubital position. Timeout was called. Propofol medication is administered. Rectal examination is done which did not reveal any masses, tears or fissures. An Olympus videoscope was introduced into the patient's rectum. Scope was then carefully advanced all the way to the cecum. Cecum was identified by the usual anatomical landmarks including the ileocecal valve as well as the appendiceal office. Photodocumentation is obtained. Scope was then sequentially pulled back via the various segments of the colon including the ascending colon, hepatic flexure, transverse colon, splenic flexure, descending colon finding to the rectosigmoid portions of the colon. Retroflexion maneuvers performed. 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 Diverticulosis without any evidence of diverticulitis. Internal hemorrhoids OPERATION: Colonoscopy with submucosal injection. Colonoscopy with biopsy SURGEON: LISANDRO BHAKTA ANESTHESIA: LMAC TISSUE REMOVED OR ALTERED: As noted above. COMPLICATIONS: None. ESTIMATED BLOOD LOSS: None. INTRAOPERATIVE FINDINGS: As noted above. PROCEDURE: Patient tolerated the procedure well. No immediate postprocedure complications are noted. Patient is discharged in good condition. Discharge date 08/11/2019. Discharge diet: Regular. Discharge activity: Regular. 2 to 3-week follow-up to discuss findings. Patient is instructed to call the office or proceed to the emergency room should there be any further problems or questions. Will need referral to surgery. We will wait on the pathology however the lesion appears to be more than likely consistent with adenocarcinoma of the colon.
== END 2019-08-11 08:55 | disposition home or self-care (01) ==
LOC: END 07:09
PROVIDERS: ATTEND Internal Medicine Gastroenterology
DX: Z12.11 Encounter for screening for malignant neoplasm of colon (principal); R19.5 Other fecal abnormalities; D12.6 Benign neoplasm of colon, unspecified; K57.30 Diverticulosis of large intestine without perforation or abscess without bleeding; K64.8 Other hemorrhoids; I10 Essential (primary) hypertension; E11.40 Type 2 diabetes mellitus with diabetic neuropathy, unspecified; N32.81 Overactive bladder
CPT/HCPCS: 45380; 45381; 82962; 88305 ×2; 00811; J3490; J2704; 811

== ENCOUNTER 2019-11-06 07:10 | Day surgery (SDC) | payer MEDICARE, OTHER ==
[~2019-11-06 07:10] MED LIST: BUPIVACAINE HCL 0.75% INJ/PF (7.5 MG/1 ML) 10 ML SDV OS PRN; KETOROLAC TROMETHAMINE 0.45% 4 DROP/0.4 ML DROPERETTE OS PRN; LIDOCAINE 4% INJ/PF (40 MG/ML) 5 ML AMPUL OS PRN
[2019-11-06] MEDS ORDERED: EPINEPHRINE INJ/PF 1 MG/1 ML AMPULE ONE (07:17)
[2019-11-06] MEDS ORDERED: LIDOCAINE 1% INJ-PF (10 MG/ML) 30 ML SDV ONE (07:19)
[2019-11-06] MEDS ORDERED: CHONDR SU A NA/HYALUR INTRAOC KIT (SURGICARE) ONE (07:19)
[2019-11-06] MEDS: TETRACAINE HCL 0.5% OPH SOLN 4 ML OS PRN ×2 (07:25→07:52)
[2019-11-06] MEDS: CYCLOPENTOLATE 0.2%/PHENYLEPHRINE 1% OPH SOLN 2 ML OS PRN ×3 (07:26→07:48)
[2019-11-06] MEDS: BESIFLOXACIN HCL 0.6% OPH SUSP 5 ML BOTTLE OS PRN ×4 (07:26→08:32)
[2019-11-06] MEDS: TROPICAMIDE 1% OPH SOLN 15 ML OS PRN ×3 (07:26→07:48)
[2019-11-06] MEDS ORDERED: FENTANYL CITRATE INJ/PF 100 MCG/2 ML AMPUL ONE (07:42)
[2019-11-06] MEDS ORDERED: MIDAZOLAM 2 MG/2 ML INJ ONE (07:42)
[2019-11-06] MEDS: DORZOLAMIDE HCL 2%/TIMOLOL MALEAT 0.5% OPH SOLN 10 ML OS PRN ×2 (08:32)
--- NOTE | 2019-11-06 12:00 | Operative Report ---
Operative Report-[facility] Operative Report: DATE OF SURGERY: 11/06/2019 PREOPERATIVE DIAGNOSIS: CATARACT, LEFT EYE. POSTOPERATIVE DIAGNOSIS: CATARACT, LEFT EYE. PROCEDURE PERFORMED: PHACOEMULSIFICATION WITH POSTERIOR CHAMBER INTRAOCULAR LENS, LEFT EYE. Intraocular Lens Model : ZCBOO 23.0 Total Phaco Time: 11.32 CDE SURGEON: JAIDA MCDOWELL MD ANESTHESIA: TOPICAL WITH MAC. INDICATIONS FOR SURGERY: Difficultly driving at night and captions on TV PROCEDURE: The patient was brought to the Operating Room and placed on the operative table. Following tetracaine drops, topical anesthesia was administered. This consisted of instrument wipe pledgets soaked in a solution of 4% Xylocaine mixed with 0.75% Marcaine in a 1:2 ratio. A 2 x 1 cm pledget was placed in the superior fornix. A 1 x 1 cm pledget was placed in the inferior fornix. The eye was patched shut for 5 minutes. The patch was removed. The eye was sterilely prepped and draped in the usual manner. Lid speculum was placed in the eye. The pledgets were removed. 4-0 black silk sutures were placed around the superior and the inferior rectus muscles to be used as traction. A conjunctival peritomy was made at the 10 o'clock position. Hemostasis was obtained with bipolar cautery. A posterior limbal groove was created using a crescent knife and dissected anteriorly towards the cornea. A sharp point blade was used to create a paracentesis site at the 2 o'clock position. 0.2 cc non preserved Lidocaine was injected into the anterior chamber. A 2.4 mm keratome was used to enter the a nterior chamber through the groove. Viscoelastic was injected into the anterior chamber. An anterior capsulotomy was performed using Utrata forceps in a capsulorrhexis fashion. Hydrodissection and hydrodelineation were performed. Phacoemulsification was performed in [id number] technique. Following this, the I/A unit was used to remove residual cortex. Viscoelastic was injected into the capsular bag. The Intraocular lens was placed in the capsular bag. The I/A unit was used to remove residual viscoelastic. The wound was seen to be watertight under high and low pressure, and no sutures were placed. The intraocular lens was well centered. The pressure was adjusted in the eye to normal pressure. The 4-0 black silk sutures and lid speculum were removed. The eye was shielded after Besivance,prednisolone, and Cosopt drops were placed. The patient tolerated the procedure well and was sent to the Recovery Room in good condition.
== END 2019-11-06 09:15 | disposition home or self-care (01) ==
LOC: SC 07:10
PROVIDERS: ATTEND Ophthalmology
DX: H35.3132 Nonexudative age-related macular degeneration, bilateral, intermediate dry stage (principal); H25.813 Combined forms of age-related cataract, bilateral; E11.9 Type 2 diabetes mellitus without complications; I10 Essential (primary) hypertension; Z88.0 Allergy status to penicillin; Z79.899 Other long term (current) drug therapy; Z79.84 Long term (current) use of oral hypoglycemic drugs
CPT/HCPCS: 66984; 82962; V2632; J2250; J3490 ×5; A9270; J0171; J3010

== ENCOUNTER 2019-12-04 07:30 | Day surgery (SDC) | payer MEDICARE, OTHER ==
[~2019-12-04 07:30] MED LIST changes: +BUPIVACAINE HCL 0.75% INJ/PF (7.5 MG/1 ML) 10 ML SDV OD PRN; -BUPIVACAINE HCL 0.75% INJ/PF (7.5 MG/1 ML) 10 ML SDV OS PRN; +FENTANYL CITRATE INJ/PF 100 MCG/2 ML AMPUL ONE; +KETOROLAC TROMETHAMINE 0.45% 4 DROP/0.4 ML DROPERETTE OD PRN; -KETOROLAC TROMETHAMINE 0.45% 4 DROP/0.4 ML DROPERETTE OS PRN; +LIDOCAINE 4% INJ/PF (40 MG/ML) 5 ML AMPUL OD PRN; -LIDOCAINE 4% INJ/PF (40 MG/ML) 5 ML AMPUL OS PRN; +MIDAZOLAM 2 MG/2 ML INJ ONE; +ONDANSETRON HCL INJ/PF 4 MG/2 ML SDV ONE
[2019-12-04] MEDS: TROPICAMIDE 1% OPH SOLN 15 ML OD PRN ×3 (07:57→08:15)
[2019-12-04] MEDS: CYCLOPENTOLATE 0.2%/PHENYLEPHRINE 1% OPH SOLN 2 ML OD PRN ×3 (07:57→08:13)
[2019-12-04] MEDS: TETRACAINE HCL 0.5% OPH SOLN 4 ML OD PRN ×3 (07:57→08:26)
[2019-12-04] MEDS: BESIFLOXACIN HCL 0.6% OPH SUSP 5 ML BOTTLE OD PRN ×4 (07:57→08:51)
[2019-12-04] MEDS: EPINEPHRINE INJ/PF 1 MG/1 ML AMPULE ONE ×2 (08:37)
[2019-12-04] MEDS: CHONDR SU A NA/HYALUR INTRAOC KIT (SURGICARE) ONE ×2 (08:37)
[2019-12-04] MEDS: LIDOCAINE 1% INJ-PF (10 MG/ML) 30 ML SDV ONE ×2 (08:37)
[2019-12-04] MEDS: DORZOLAMIDE HCL 2%/TIMOLOL MALEAT 0.5% OPH SOLN 10 ML OD PRN ×2 (08:51)
[2019-12-04] MEDS ORDERED: LIDOCAINE 2% INJ-PF (100 MG/5 ML) SYRINGE ONE (08:58)
--- NOTE | 2019-12-04 11:01 | Operative Report ---
Operative Report-[facility] Operative Report: DATE OF SURGERY: 12/04/2019 PREOPERATIVE DIAGNOSIS: CATARACT, RIGHT EYE. POSTOPERATIVE DIAGNOSIS: CATARACT, RIGHT EYE. PROCEDURE PERFORMED: PHACOEMULSIFICATION WITH POSTERIOR CHAMBER INTRAOCULAR LENS, RIGHT EYE. Intraocular Lens Model : ZCBOO 23.5 Total Phaco Time: 5.27 CDE SURGEON: JAIDA MCDOWELL MD ANESTHESIA: TOPICAL WITH MAC. INDICATIONS FOR SURGERY: Difficulty reading small print and road signs. PROCEDURE: The patient was brought to the Operating Room and placed on the operative table. Following tetracaine drops, topical anesthesia was administered. This consisted of instrument wipe pledgets soaked in a solution of 4% Xylocaine mixed with 0.75% Marcaine in a 1:2 ratio. A 2 x 1 cm pledget was placed in the superior fornix. A 1 x 1 cm pledget was placed in the inferior fornix. The eye was patched shut for 5 minutes. The patch was removed. The eye was sterilely prepped and draped in the usual manner. Lid speculum was placed in the eye. The pledgets were removed. 4-0 black silk sutures were placed around the superior and the inferior rectus muscles to be used as traction. A conjunctival peritomy was made at the 10 o'clock position. Hemostasis was obtained with bipolar cautery. A posterior limbal groove was created using a crescent knife and dissected anteriorly towards the cornea. A sharp point blade was used to create a paracentesis site at the 2 o'clock position. 0.2 cc non preserved Lidocaine was injected into the anterior chamber. A 2.4 mm keratome was used to enter the anterior chamber through the groove. Viscoelastic was injected into the anterior chamber. An anterior capsulotomy was performed using Utrata forceps in a capsulorrhexis fashion. Hydrodissection and hydrodelineation were performed. Phacoemulsification was performed in [id number] technique. Following this, the I/A unit was used to remove residual cortex. Viscoelastic was injected into the capsular bag. The Intraocular lens was placed in the capsular bag. The I/A unit was used to remove residual viscoelastic. The wound was seen to be watertight under high and low pressure, and no sutures were placed. The intraocular lens was well centered. The pressure was adjusted in the eye to normal pressure. The 4-0 black silk sutures and lid speculum were removed. The eye was shielded after Besivance. prednisolone, and Cosopt drops were placed. The patient tolerated the procedure well and was sent to the Recovery Room in good condition.
== END 2019-12-04 09:38 | disposition home or self-care (01) ==
LOC: SC 07:30
PROVIDERS: ATTEND Ophthalmology
DX: H25.811 Combined forms of age-related cataract, right eye (principal); Z96.1 Presence of intraocular lens; I49.9 Cardiac arrhythmia, unspecified; I10 Essential (primary) hypertension; R01.1 Cardiac murmur, unspecified; E11.9 Type 2 diabetes mellitus without complications; Z79.84 Long term (current) use of oral hypoglycemic drugs; D64.9 Anemia, unspecified; Z79.899 Other long term (current) drug therapy; Z88.0 Allergy status to penicillin
CPT/HCPCS: 66984; 82962; 00142; V2632; J2250; J3490 ×5; A9270; J0171; J2001; J2405; 142; J3010